=== PATIENT | female | born 2000 | race Caucasian/White ===

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

== ENCOUNTER → 2018-04-28 16:47 | Outpatient (REF) | payer MEDICAID, SELFPAY ==
[2018-05-01 20:01] LABS: Neisseria gonorrhoeae, NAA Negative (Negative)
== END ==
LOC: LAB 16:47
PROVIDERS: Visit Provider Nurse Practitioner Obstetrics & Gynecology
DX: R10.2 Pelvic and perineal pain (principal)
CPT/HCPCS: 87491; 87591

== ENCOUNTER → 2018-07-03 14:22 | Outpatient (CLI) | payer MEDICAID, SELFPAY ==
--- NOTE | 2018-07-03 14:23 | US_ITS ---
US transvaginal HISTORY: Left lower quadrant pain ITS.REASON: DUB ORDERING PHYSICIAN: KELLEY Miller PATIENT AGE: 18 years Comparison: None FINDINGS: Uterus measures 7 x 3.5 x 3.8 cm with a combined endometrial thickness 7 mm. No obvious uterine mass evident. Right ovary is 3.6 x 2.4 cm and contains a 2 cm cyst. The left ovary is 2.2 x 2 cm containing a 7 mm cyst. Bilateral ovarian blood flow is present. No cul-de-sac fluid. IMPRESSION: Small bilateral ovarian cysts otherwise negative pelvic ultrasound
== END ==
PROVIDERS: PCP Nurse Practitioner Obstetrics & Gynecology; Visit Provider Physician Assistant
DX: N93.8 Other specified abnormal uterine and vaginal bleeding (principal)
CPT/HCPCS: 76830

== ENCOUNTER → 2019-02-25 07:43 | Outpatient (CLI) | payer BC, SELFPAY ==
--- NOTE | 2019-02-25 08:30 | US_ITS ---
US abdomen limited History:Upper abdominal pain with vomiting Ordering Physician:Leander Vasquez MD Patient Age: 18 years Comparison:None Findings: Pancreas:Unremarkable. No obvious mass or abnormal fluid collection. No ductal dilatation Liver:Unremarkable. No obvious mass or abnormal fluid collection. No ductal dilatation Right Kidney:Unremarkable. Normal size and echogenicity. No hydronephrosis Gallbladder:No gallstones, gallbladder wall thickening, pericholecystic fluid, or biliary dilatation. There is some increased echogenicity along the gravity dependent portion of the gallbladder suggesting a small amount sludge Impression: 1. No stones gallbladder wall thickening pericholecystic fluid or biliary dilatation. 2. Small amount of gallbladder sludge versus concentrated bile
== END ==
PROVIDERS: PCP Family Medicine; Visit Provider Family Medicine
DX: R10.11 Right upper quadrant pain (principal)
CPT/HCPCS: 76705

== ENCOUNTER → 2019-03-05 09:50 | Outpatient (CLI) | payer BC, SELFPAY ==
--- NOTE | 2019-03-05 10:35 | NM_ITS ---
M hepatobiliary wo pharm HIST/ORY: ITS.REASON: RUQ PAIN, VOMITING ORDERING PHYSICIAN: Leander Vasquez MD PATIENT AGE: 18 years COMPARISON: None DOSE: 7.92 MCI TC Choletec 1.6 MCG CCK INJ into RT ANT FINDINGS: Homogeneous activity is present within the hepatic parenchyma. Activity is present in the gallbladder by 15 minutes. Activity is present in the small bowel by 10 minutes. The gallbladder ejection fraction is calculated to be 99% The patient did not report pain or other symptoms during CCK infusion. IMPRESSION: Unremarkable hepatobiliary scan and gallbladder ejection fraction. No evidence of common or cystic duct obstruction with normal gallbladder ejection fraction
[2019-03-05 11:00] LABS: Urine Pregnancy, HCG Qual. Negative (Negative)
== END ==
PROVIDERS: PCP Family Medicine; Visit Provider Family Medicine
DX: R10.11 Right upper quadrant pain (principal); K82.8 Other specified diseases of gallbladder; Z32.00 Encounter for pregnancy test, result unknown
CPT/HCPCS: 78226; 81025; A9537; J2805

== ENCOUNTER → 2019-08-20 08:06 | Outpatient (CLI) | payer SELFPAY ==
[2019-08-20 10:30] LABS: HCG,Quantitative 727 mIU/mL
== END ==
PROVIDERS: Visit Provider Nurse Practitioner Obstetrics & Gynecology
DX: Z34.90 Encounter for supervision of normal pregnancy, unspecified, unspecified trimester (principal)
CPT/HCPCS: 36415; 84702

== ENCOUNTER → 2019-11-15 10:27 | Outpatient (CLI) | payer BC, SELFPAY ==
--- NOTE | 2019-11-15 10:32 | US_ITS ---
PROCEDURE: US OB TRANSVAGINAL CLINICAL INDICATION: US OB Dates COMPARISON: US OB TRANSVAGINAL from 08/30/2019 FINDINGS: An intrauterine gestational sac is present with a pole with a crown-rump length of 4.49cm correlating to gestational age of 11weeks 3days. heart tones are present with an FHR of 157bpm. Yolk sac is noted. The chorion and amnion have not yet fused. No obvious adnexal mass. IMPRESSION: Live intrauterine gestation at 11 weeks 3 days. Estimated due date by Ultrasound is 06/02/2020 Dictated by: Benny Byrnes MD 11/15/2019 13:03 Electronically signed by Benny Byrnes MD in [place] 11/15/2019 13:03
== END ==
PROVIDERS: Visit Provider Nurse Practitioner Obstetrics & Gynecology
DX: O26.841 Uterine size-date discrepancy, first trimester (principal)
CPT/HCPCS: 76817

== ENCOUNTER → 2020-01-12 10:30 | Outpatient (CLI) | payer BC, SELFPAY ==
[2020-01-12 11:08] LABS: Basophils # 0.1 K/mm3 (0-0.2); Basophils % 0.4 % (0.1-2.0); Eosinophils # 0.1 K/mm3 (0.0-0.4); Eosinophils % 0.9 % (0.1-12.0); Hematocrit 33.9 % (37.0-47.0); Hemoglobin 11.7 g/dL (12.2-16.2); Lymphocytes # 2.4 K/mm3 (0.7-4.5); Lymphocytes % 18.1 % (10-50); Mean Corpuscular HGB Conc 34.5 g/dL (31.8-35.4); Mean Corpuscular Hemoglobin 28.9 pg (27.0-31.2); Mean Corpuscular Volume 83.7 fl (81-99); Mean Platelet Volume 7.1 fl (7.4-10.4); Monocytes # 0.5 K/mm3 (0.1-1.0); Monocytes % 3.7 % (1.7-9.3); Neutrophils # 10.4 K/mm3 (1.8-7.8); Neutrophils % 76.8 % (37.0-80.0); Platelet Count 264 K/mm3 (142-424); Red Blood Count 4.05 M/mm3 (4.20-5.40); Red Cell Distribution Width 13.3 % (11.5-17.5); White Blood Count 13.5 K/mm3 (4.8-10.8)
[2020-01-13 08:29] LABS: HIV Screen 4th Generation wRfx Non Reactive (Non Reactive)
[2020-01-13 12:19] LABS: Hepatitis B Surface Antigen Negative (Negative); Hepatitis C Antibody <0.1 s/co ratio (0.0-0.9); Rapid Plasma Reagin Ab Titer Non Reactive (NonRea<1:1)
[2020-01-14 10:31] LABS: Rubella Antibodies, IgG 4.01 index (Immune >0.99)
== END ==
PROVIDERS: Visit Provider Nurse Practitioner Obstetrics & Gynecology
DX: Z34.90 Encounter for supervision of normal pregnancy, unspecified, unspecified trimester (principal)
CPT/HCPCS: 36415; 85025; 86592; 86703; 86762; 86850; 87340; 87380; G0432

== ENCOUNTER → 2020-01-20 09:46 | Outpatient (CLI) | payer BC, SELFPAY ==
--- NOTE | 2020-01-20 09:47 | US_ITS ---
PROCEDURE: US OB /MATERNAL DETAIL CLINICAL INDICATION: 20 wk gestation Anatomy evaluation COMPARISON: US OB TRANSVAGINAL from 11/15/2019 FINDINGS: There is a single live fetus which is in cephalic presentation. heart and body motion is noted. Placenta is anterior. The cervix is closed and measures 4 cm transabdominal. Complete survey performed and was unremarkable on the submitted images as in PACS. No discrete anomalies identified on survey imaging by technologist. Active fetus. Three-vessel cord with satisfactory umbilical cord insertion. 4- chamber heart noted. Survey of brain & ventricles Unremarkable. Face and neck survey unremarkable. Diaphragm and chest views unremarkable. Abdomen: Both kidneys noted and unremarkable. Stomach noted and satisfactory. Spine: Survey of the spine satisfactory with no anomalies identified nor imaged. Both arms and legs noted. Amniotic Fluid: Adequate. Maternal adnexa: No significant findings. Measurements: Average ultrasound age 20weeks 5days. Gestational Age 20 weeks 6 days Estimated due date by ultrasound age 0706/03/2020. Estimated weight 374g BPD = 20weeks 6days OFD = 20 weeks 6 days HC = 20weeks 1day AC = 20weeks 6days FL = 20weeks 6days Growth Percentile= 39% Heart Rate = 140bpm Cerebellum = 20weeks 4days Humerus = 20weeks 5days HC/AC is 1.12 CI is 0.78 FL/BPD is 0.7 FL/AC is 0.22 IMPRESSION: There is a single live intrauterine in cephalic presentation with an average ultrasound age of 20 weeks 5 days. heart body motion noted. No obvious anomalies. All parameters correlate. Please see above for detail Dictated by: Benny Byrnes MD 01/20/2020 11:26 Electronically signed by Benny Byrnes MD in [place] 01/20/2020 11:26
== END ==
PROVIDERS: PCP Family Medicine; Visit Provider Nurse Practitioner Obstetrics & Gynecology
DX: Z34.90 Encounter for supervision of normal pregnancy, unspecified, unspecified trimester (principal); Z3A.20 20 weeks gestation of pregnancy
CPT/HCPCS: 76811

== ENCOUNTER → 2020-03-13 07:38 | Outpatient (CLI) | payer BC, SELFPAY ==
[2020-03-13 08:18] LABS: Glucose,Fasting 85 mg/dl (74-100)
[2020-03-13 09:29] LABS: Glucose 1 Hour 128 mg/dL (74-100)
== END ==
PROVIDERS: Visit Provider Nurse Practitioner Obstetrics & Gynecology
DX: Z34.90 Encounter for supervision of normal pregnancy, unspecified, unspecified trimester (principal)
CPT/HCPCS: 36415; 82951

== ENCOUNTER → 2020-04-17 10:13 | Outpatient (CLI) | payer BC, SELFPAY ==
--- NOTE | 2020-04-17 10:13 | US_ITS ---
PROCEDURE: US OB /MATERNAL DETAIL CLINICAL INDICATION: decreased movement Follow-up Ob, bradycardia COMPARISON: US OB /MATERNAL DETAIL from 01/20/2020 FINDINGS: There is a single live fetus which is in cephalic presentation. The cervix is closed measuring 3 cm transabdominal. The placenta is anterior. Amniotic fluid index is normal at 13 cm Measurements: Average ultrasound age 33weeks 4days. Gestational Age 33 weeks 3 days Estimated due date by ultrasound age 0706/01/2020. Estimated weight 2,222g BPD = 33weeks OFD = 34 weeks 0 days HC = 33weeks 1day AC = 33weeks 2days FL = 34weeks 4days Growth Percentile= 46% Heart Rate = 128bpm Cerebellum = Humerus = HC/AC is 1.02 CI is 0.77 FL/BPD is 0.82 FL/AC is 0.23 Biophysical profile is 8 of 8 IMPRESSION: Live IUP at 33 weeks 4 days. Biophysical profile 8 of 8. TATA normal at 13 cm Dictated by: Benny Byrnes MD 04/17/2020 19:07 Electronically signed by Benny Byrnes MD in [place] 04/17/2020 19:07
== END ==
PROVIDERS: PCP Family Medicine; Visit Provider Nurse Practitioner Obstetrics & Gynecology
DX: O36.8190 Decreased fetal movements, unspecified trimester, not applicable or unspecified (principal)
CPT/HCPCS: 76811; 76819

== ENCOUNTER → 2020-05-03 16:58 | Outpatient (CLI) | payer BC, SELFPAY | PROVIDERS: Visit Provider Nurse Practitioner Obstetrics & Gynecology | DX: Z34.90 Encounter for supervision of normal pregnancy, unspecified, unspecified trimester (principal); Z3A.35 35 weeks gestation of pregnancy | CPT/HCPCS: 86403 ==

== ENCOUNTER → 2020-05-04 12:38 | Outpatient (CLI) | payer BC, SELFPAY ==
--- NOTE | 2020-05-04 12:39 | US_ITS ---
PROCEDURE: US OB /MATERNAL DETAIL CLINICAL INDICATION: decreased movement COMPARISON: US OB /MATERNAL DETAIL from 04/17/2020 FINDINGS: The fetus is in a cephalic presentation. High anterior placental implantation is noted. Cervix and the amniotic fluid is normal. movement and breathing was demonstrated. Measurements: Average ultrasound age 35weeks 5days. Gestational Age 35weeks 5days Estimated due date by ultrasound age 0706/03/2020. Estimated weight 2,766g BPD = 35weeks 5days OFD = !Error HC = 35weeks 1day AC = 36weeks FL = 35weeks 6days Growth Percentile= 37Percent% Heart Rate = 134bpm HC/AC is 0.98 CI is 0.8 FL/BPD is 0.79 FL/AC is 0.22 IMPRESSION: As above. Dictated by: Maninder Mcknight 05/04/2020 15:48 Electronically signed by Maninder Mcknight in [place] 05/04/2020 15:48
== END ==
PROVIDERS: PCP Family Medicine; Visit Provider Nurse Practitioner Obstetrics & Gynecology
DX: O36.8190 Decreased fetal movements, unspecified trimester, not applicable or unspecified (principal)
CPT/HCPCS: 76811; 76819

== ENCOUNTER → 2020-05-11 10:37 | Outpatient (CLI) | payer BC, SELFPAY | PROVIDERS: Visit Provider Nurse Practitioner Obstetrics & Gynecology | DX: Z34.90 Encounter for supervision of normal pregnancy, unspecified, unspecified trimester (principal) | CPT/HCPCS: 36415; J2790 ==

== ENCOUNTER 2020-05-12 10:30 | Outpatient (CLI) | payer BC, SELFPAY ==
[2020-05-12 10:48] VITALS: BP 136/73; PULSE 97; RESP 18; O2SAT 98
== END 2020-05-12 10:48 | disposition home or self-care (01) ==
LOC: INF 10:48
PROVIDERS: PCP Family Medicine; Visit Provider Nurse Practitioner Obstetrics & Gynecology
DX: Z34.90 Encounter for supervision of normal pregnancy, unspecified, unspecified trimester (principal)
CPT/HCPCS: 96372; J2790

== ENCOUNTER 2020-05-24 20:27 | Outpatient (CLI) | payer BC, SELFPAY ==
[2020-05-24 21:00] VITALS: BMI 30.4
[2020-05-24 21:15] VITALS: BP 117/82; PULSE 106; RESP 20; TEMP 36.8; O2SAT 97; BMI 30.4
== END 2020-05-24 22:38 | disposition home or self-care (01) ==
LOC: OBOUT 20:30 → OB 20:31
PROVIDERS: PCP Nurse Practitioner Obstetrics & Gynecology; Visit Provider Nurse Practitioner Obstetrics & Gynecology
DX: O36.8130 Decreased fetal movements, third trimester, not applicable or unspecified (principal); Z3A.38 38 weeks gestation of pregnancy
CPT/HCPCS: 59025; 96365; G0463

== ENCOUNTER → 2020-05-25 09:39 | Outpatient (CLI) | payer BC, SELFPAY ==
--- NOTE | 2020-05-25 09:43 | US_ITS ---
PROCEDURE: US OB BPP W/FET-MAT S/D CLINICAL INDICATION: Seen in OB Triage, Decreased Movement COMPARISON: US OB /MATERNAL DETAIL from 05/04/2020 FINDINGS: There is a single live fetus which is in cephalic presentation. heart and body motion noted. Biophysical profile is 8 of 8. Amniotic fluid index is 9 cm. The placenta is anterior and grade 1. Measurements: Average ultrasound age 37weeks 3days. Gestational Age 38 weeks 6 days Estimated due date by ultrasound age 806/12/2020. Estimated weight 3,494g. This is percentile BPD = 37weeks OFD = 34 weeks 4 days HC = 35weeks 2days AC = 40weeks 1day FL = 37weeks 1day Growth Percentile= 58% Heart Rate = 124bpm Cerebellum = Humerus = HC/AC is 0.87 CI is 0.84 FL/BPD is 0.8 FL/AC is 0.2 IMPRESSION: There is a live IUP at 37 weeks 3 days average ultrasound age in breech presentation as described above with biophysical profile 8 of 8. TATA is lower normal at 9 cm. Please see above for detail Dictated by: Benny Byrnes MD 05/25/2020 14:57 Electronically signed by Benny Byrnes MD in [place] 05/25/2020 14:57
== END ==
PROVIDERS: PCP Family Medicine; Visit Provider Nurse Practitioner Obstetrics & Gynecology
DX: O36.8190 Decreased fetal movements, unspecified trimester, not applicable or unspecified (principal)
CPT/HCPCS: 76811; 76819; 76820

== ENCOUNTER 2020-05-29 04:58 | Inpatient (IN) | payer BC, SELFPAY ==
[2020-05-29] VITALS (8 sets, daily range): BP systolic 109–134; BP diastolic 57–81; PULSE 68–95; RESP 12–18; TEMP 36.2–37; O2SAT 98–100; BMI 30.5; BMI 30.8
[2020-05-29 05:33] LABS: Basophils # 0.1 K/mm3 (0-0.2); Basophils % 0.8 % (0.1-2.0); Eosinophils # 0.3 K/mm3 (0.0-0.4); Eosinophils % 1.9 % (0.1-12.0); Hematocrit 39.7 % (37.0-47.0); Hemoglobin 13.7 g/dL (12.2-16.2); Lymphocytes # 2.9 K/mm3 (0.7-4.5); Lymphocytes % 21.3 % (10-50); Mean Corpuscular HGB Conc 34.5 g/dL (31.8-35.4); Mean Corpuscular Hemoglobin 29.2 pg (27.0-31.2); Mean Corpuscular Volume 84.6 fl (81-99); Mean Platelet Volume 7.4 fl (7.4-10.4); Monocytes # 0.6 K/mm3 (0.1-1.0); Monocytes % 4.2 % (1.7-9.3); Neutrophils # 9.7 K/mm3 (1.8-7.8); Neutrophils % 71.8 % (37.0-80.0); Platelet Count 276 K/mm3 (142-424); Red Cell Distribution Width 13.7 % (11.5-17.5); White Blood Count 13.5 K/mm3 (4.8-10.8)
[2020-05-29 05:35] LABS: Microscopic, Urine URINE MICROSCOPIC (MICROSCOPIC)
[2020-05-29 05:38] LABS: Appearance,Urine SL CLOUDY (Clear); Bilirubin,Urine Negative (Negative); Blood, Urine Negative (Negative); Color,Urine YELLOW (Yellow); Glucose,Urine (UA) Negative (Negative); Ketones,Urine Negative (Negative); Leukocyte Esterase,Urine 2+ (Negative); Nitrate,Urine Negative (Negative); Protein,Urine Negative (Negative); Specific Gravity, Urine 1.025 (1.005-1.030); Urobilinogen,Urine 0.2 EU/dl (0.2)
[2020-05-29 05:40] LABS: Squamous Epithelial Cell,Urine 20-50 #/hpf (0-5); WBC,Urine 20-50 #/hpf (0-3)
[2020-05-29 05:48] LABS: Barbiturates Screen,Urine Negative ng/ml (<200); Benzodiazepines Screen,Urine Negative ng/ml (<200)
[2020-05-29 05:49] LABS: Amphetamine/Metha Screen,Urine Negative ng/ml (<1000)
[2020-05-29 05:50] LABS: Cannabinoid Screen,Urine Negative ng/ml (<50); Methadone Screen,Urine Negative ng/ml (<300)
[2020-05-29 05:51] LABS: Cocaine Screen,Urine Negative ng/ml (<300); Opiate Screen,Urine Negative ng/ml (<300)
[2020-05-29 05:52] LABS: Phencyclidine Screen,Urine Negative ng/ml (<25)
[2020-05-29 06:11] LABS: Coronavirus 19 IgG Antibody Negative (Negative); Coronavirus 19 IgM Antibody Negative (Negative)
--- NOTE | 2020-05-29 07:25 | HMH.LABNOT ---
Labor Note - Subjective: Date: 05/29/20 Time: 07:25 regular contraction - Objective: NST:: Reactive Contractions:: every 2-3 minutes Cervical Dilation:: 4 Effacement:: 75% Station: -2 Membranes: artificially ruptured - Fetus: Monitoring?: Yes monitoring type:: Internal and External Comment:: iupc inserted - Assessment: Patient Problems: All Active Problems Viral syndrome (Acute) (Acute) - Plan: Anesthesia for epidural?: No Continue to labor down?: Yes Plan for ?: No Continue to monitor?: Yes Start pushing?: No
--- NOTE | 2020-05-29 07:32 | HMH.PHAINT ---
MEDICATION RECONCILIATION COMPLETED ON PATIENT USING EXTERNAL FILL HISTORY FROM PHARMACY. -LUCIE COLÓN, [place]
--- NOTE | 2020-05-29 09:23 | P.PN_ITS ---
[facility] Anesthesia Checklist - Patient Identification Patient Identification: Arm Band - Structural Data Admitted From: Inpatient Planned Operative Procedure/s: labor epidural Consent for Planned Operative Procedure(s) Verified: Yes Verified Documents: Surgical Consent, History and Physical - NPO Status Verified Time NPO: 00:00 - Additional verifications Anesthesia Reactions: No - Airway Assessment C-Spine Mobility Assessed: Yes TMJ Mobility Assessed: Yes Dentition: Good Dentition - Neurological Assessment Level of Consciousness: Awake, Alert - Anesthesia Plan Anesthesia Risk discussed: Yes Anesthesia Plan: Verified ASA Class: II Anesthesia Type: Epidural [facility] History I have reviewed the patient's past medical history: Yes 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: Denies:: Cancer, Diabetes Mellitus Type 1, Diabetes Mellitus Type 2, MRSA *Have you ever received a pneumonia vaccine?: No *Have you received a flu vaccine this season?: No Other 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: Reports: Other Anesthesia experience/problems:: nac Laterality Cases: Bilateral: Tonsillectomy, Other Other Surgeries: Yes: No Previous Surgery. No: Amputation: No Fractures: No - *Social History Smoking Status: Never smoker Alcohol Intake: never Substance Use Type: denies use *Occupational Status:: unemployed Housing: apartment Household Members: spouse *Travel in the last 8 weeks: None Family Hx:: Hypertension, Cancer, Stroke Para: 0
--- NOTE | 2020-05-29 09:54 | HMH.LABNOT ---
Labor Note - Subjective: Date: 05/29/20 Time: 09:54 regular contraction Comment:: She received her epidural and shortly thereafter had some low baseline into the 80s and 90s with the baby's heart rate. She received 1 dose of ephedra and this seemed to increase the baby's heart rate. She also had a bolus of IV fluids. She had an IUPC in and we have given her an amnioinfusion as well. Heart rate seems to have improved and she is doing well. She is 6 to 7 cm. - Objective: NST:: Reactive Contractions:: every 2-3 minutes Cervical Dilation:: 6-7 Effacement:: 100% Station: 0 Membranes: artificially ruptured - Fetus: Monitoring?: Yes monitoring type:: Internal - Assessment: Labor progressing?: Yes Cephalopelvic disproportion?: No Patient Problems: All Active Problems Viral syndrome (Acute) (Acute) - Plan: Anesthesia for epidural?: Yes Continue to labor down?: Yes Plan for ?: No Continue to monitor?: Yes Start pushing?: No
--- NOTE | 2020-05-29 12:13 | HMH.LABNOT ---
Labor Note - Subjective: Date: 05/29/20 Time: 12:13 regular contraction - Objective: NST:: Reactive Contractions:: every 2-3 minutes Cervical Dilation:: 6-7 Effacement:: 100% Station: 0 Membranes: artificially ruptured - Fetus: Monitoring?: Yes monitoring type:: Internal - Assessment: Labor progressing?: No Cephalopelvic disproportion?: No Patient Problems: All Active Problems Viral syndrome (Acute) (Acute) - Plan: Anesthesia for epidural?: Yes Continue to labor down?: Yes Plan for ?: No Continue to monitor?: Yes Start pushing?: No Comment:: She really has not changed her cervix much over the last couple of hours. We will see how she does. Nonstress test is reactive. She is having regular contractions.
[2020-05-29 13:19] LABS: Cord Blood PH 7.25 (7.35-7.45)
--- NOTE | 2020-05-29 13:33 | HMH.OPNOTE ---
Date of procedure: 05/29/20 Pre-op Diagnosis:: Term , nonreassuring heart rate tracing Post-op Diagnosis:: Term , nonreassuring heart rate tracing, uterine atony Procedure performed:: Primary lower segment transverse section, B. Sparks suture Surgeon:: Jeanmarie Panda MD Retail Sales Lead(s):: Dr. Edwards BATTING MACHINE OPERATOR INSULATION:: Fredrick Willis Anesthesia: epidural Estimated blood loss (mL): 800 Clinical Note:: She is a 19-year-old 2 para 0 aborta 1 who was 39+ weeks gestational age. She was seen in my office last week and had some decreased movement. Ultrasound was normal. Since she was now 39 weeks we elected to induce her labor at term. She was started on IV oxytocin had her membranes ruptured. She progressed to 6 to 7 cm dilated and throughout the whole morning she was having episodes of decelerations. After her epidural she had a prolonged deceleration that lasted about 10 minutes. It seemed that every time we examined her she would have another prolonged deceleration. We felt that it may have had a nuchal cord and as result of that we had inserted an IUPC with amnioinfusion. This did not help. After having discussed the risks and benefits were elected to go ahead with a primary lower segment transverse section. We discussed the risks of bleeding, infection, injuries to the bowel and bladder. We discussed the rare risk of DVT. All questions were answered and consents were signed. Operative findings:: She delivered a liveborn female child at 12:57 PM in the afternoon of May 29, 2020. The baby had Apgars of 8 at 1 minute and 9 at 5 minutes. pH was 7.24. Ovaries and tubes appeared normal. The uterus was somewhat boggy postdelivery and we elected to place a B. Sparks suture as result of this. Operative note:: She was taken to the operating room where spinal anesthesia was found be adequate. She was prepped and draped in normal sterile fashion in the supine position with a leftward tilt. A Gonzalez catheter was in the bladder. A Pfannenstiel skin incision was made with knife then carried through to the underlying layer of fascia with cautery. The fascia was opened in the midline with cautery and extended laterally using Mcnulty scissors. Gepp clamps were applied to the superior aspect of the fascial incision which was tented up and the underlying rectus muscles dissected off using cautery. The Chris clamps were then applied to the inferior aspect of the fascial incision which in a similar fashion was tented up and the underlying rectus muscles dissected off using cautery. The rectus muscles were then in the midline, the peritoneum identified, and entered sharply with Metzenbaum scissors. This incision was then extended superiorly and inferiorly with cautery. We had good visualization of the bladder inferiorly. The bladder peritoneum was then opened in the midline and extended laterally using Metzenbaum scissors. A bladder flap was created digitally. Transverse incision was made through the uterine muscle to the amnion. This incision was then extended laterally using fingers traction. The amnion was entered sharply with knife. There was clear amniotic fluid. The 's head was then delivered atraumatically. A loose nuchal cord was then reduced. This was followed by the anterior shoulder and the rest of the 's body atraumatically. The oropharynx and nasopharynx were bulb suctioned. The infant was then handed off to Dr. Vasquez who assigned Apgars of 8 at 1 minute and 9 at 5 minutes. We then obtained cord blood as well as cord pH. The pH was 7.24.. Using gentle traction on the cord and countertraction on the fundus I was able to easily deliver the placenta intact. It had a normal three-vessel cord. The uterus was then cleared of clots and debris . The uterine incision was then closed using running 0 Vicryl suture in a locked fashion. A second layer of the same suture was used to imbricate
--- NOTE | 2020-05-29 13:38 | HMH.LABNOT ---
Labor Note - Subjective: Date: 05/29/20 Time: 12:10 regular contraction - Objective: NST:: Reactive Contractions:: every 2-3 minutes Cervical Dilation:: 6-7 Effacement:: 100% Station: 0 Membranes: artificially ruptured - Fetus: Monitoring?: Yes monitoring type:: Internal - Assessment: Labor progressing?: No Patient Problems: All Active Problems Viral syndrome (Acute) (Acute) - Plan: Anesthesia for epidural?: Yes Continue to labor down?: No Plan for ?: Yes Continue to monitor?: Yes Start pushing?: No Comment:: Each time we have examined her she has had some prolonged decelerations. As result of that we have elected to perform a primary lower segment transverse section. She also has not really progressed over the last 3 hours. We discussed the risks of surgery that includes bleeding, infection, injuries to the bowel and bladder. We discussed the rare risk of DVT. All questions were answered and consents were signed.
--- NOTE | 2020-05-29 13:40 | P.PN_ITS ---
[facility] Anesthesia Record Part I Intake, IV Amount: 1,500 Estimated blood loss (mL): 600 Urine output (mL): 400 Blood Pressure: 134/78 SaO2: 98 Pulse Rate: 72 Respiratory Rate: 12 Temperature: 97.1 F Patient is:: Awake, Stable Stable to PACU at:: 13:35
--- NOTE | 2020-05-29 13:55 | PC.NURSE ---
1348-pt drinking gatorade w/out difficulty at this time
--- NOTE | 2020-05-29 14:03 | PC.NURSE ---
1401-detailed report called to ADALI Crouch 1405-pt transported to OB room 278 via hospital bed per ADALI Duarte and JefferyRN with tom rails up and left in care of ADALI Crouch with bed locked in lowest position, vss, pt stable
--- NOTE | 2020-05-29 15:57 | HMH.ANESII ---
[facility] Anesthesia Record Part II Discharge Time: 14:05 Destination: Obstetric PACU nurse assessment reviewed?: Yes Patient Condition:: Good Anesthesia Complications:: None Swallowing reflex intact?: Yes Cyanosis?: No Blood Pressure: 121/75 Pulse Rate: 69 Temperature: 97.7 F Mental Status: Alert & Oriented Pain level:: 1 Nausea and/or vomitting:: None Intake, IV Amount: 0
[2020-05-30 06:45] LABS: Hematocrit 33.9 % (37.0-47.0); Hemoglobin 11.4 g/dL (12.2-16.2)
[2020-05-30 08:00] VITALS: BP 120/72; PULSE 92; RESP 18; TEMP 36.7
--- NOTE | 2020-05-30 08:30 | HMH.ACPN2 ---
Internal Medicine - PN: Subj *Date: 05/30/20 *Time: 08:30 Interval history: She is doing well. She is eating and drinking and ambulating. Her pain is well controlled. She is bottlefeeding. Her hemoglobin is normal. Exam Vital signs and Labs for Last 24 Hours: Temp Pulse Resp BP Pulse Ox 98.3 F 68 17 111/65 99 05/29/20 20:17 05/29/20 20:17 05/29/20 20:17 05/29/20 20:17 05/29/20 20:17 Laboratory Results - last 24 hr 05/29/20 05:25: Antibody Identification Anti-D 05/29/20 13:05: Cord ABG pH 7.25 L 05/30/20 06:30: Hgb 11.4 L, Hct 33.9 L I & O for Last 24 hours: Intake & Output 05/27/20 05/28/20 05/29/20 05/30/20 11:59 11:59 11:59 11:59 Intake Total 1650 / 1650 Output Total 200 / 200 Balance 1450 / 1450 Weight 209 lb Microbiology Reports for the Last 24 Hours: Microbiology 05/29/20 05:15 Urine,Clean Catch Urine Culture - Preliminary NO GROWTH AFTER 24 HOURS - Constitutional no acute distress - *Routine HEENT Exam Head: Present: normocephalic Eye: Present: EOMI, PERRL ENT: Present: mucous membranes moist Assessment and Plan (1) Non-reassuring heart rate or rhythm affecting management of fetus Current visit: Yes Status: Acute Category: Medical (2) Delivery by section of full-term Current visit: Yes Status: Acute Category: Medical Code(s): O82 - Encounter for delivery without indication - Assessment and plan all Dx Assessment and Plan for all problems:: She continues to do well. We will plan to send her home in 48 hours.
--- NOTE | 2020-05-30 08:45 | P.CONPHA_ITS ---
[facility] Pharmacy VTE Monitoring - Patient Demographics Admission date: 05/29/20 Report Date: 05/30/20 Time: 08:45 Allergies/Adverse Reactions: Patient Allergies No Known Allergies Allergy (Verified 05/22/20 10:20) Height: 1.75 m Weight: 94.801 kg Patient Problems: Current Active Problems Non-reassuring heart rate or rhythm affecting management of fetus (Acute) Delivery by section of full-term (Acute) - VTE Risk Labs: VTE Related Lab Results Hgb 11.4 g/dL (12.2-16.2) L 05/30/20 06:30 Hct 33.9 % (37.0-47.0) L 05/30/20 06:30 Plt Count 276 K/mm3 (142-424) 05/29/20 05:25 - Prophylaxis VTE Prophylaxis Ordered?: Yes Types of VTE Prophylaxis: IPCS Thigh High Location of Applied Device: Bilateral Lower Extremeties
[2020-05-30 12:06] VITALS: BP 115/60; PULSE 70; RESP 18; TEMP 36.8; O2SAT 97
[2020-05-30 16:30] VITALS: BP 118/72; PULSE 71; RESP 18; TEMP 36.5
[2020-05-31 08:27] VITALS: BP 118/77; PULSE 84; RESP 18; TEMP 36.7; O2SAT 98
--- NOTE | 2020-05-31 09:27 | HMH.ACPN2 ---
Internal Medicine - PN: Subj *Date: 05/31/20 *Time: 09:27 Interval history: She is doing well today. She is eating and drinking and ambulating. She is bottlefeeding. Her lochia is normal. Exam Vital signs and Labs for Last 24 Hours: Temp Pulse Resp BP Pulse Ox 98.1 F 84 18 118/77 98 05/31/20 08:27 05/31/20 08:27 05/31/20 08:27 05/31/20 08:27 05/31/20 08:27 I & O for Last 24 hours: Intake & Output 05/28/20 05/29/20 05/30/20 05/31/20 11:59 11:59 11:59 11:59 Intake Total 1650 / 1650 Output Total 200 / 200 Balance 1450 / 1450 Weight 209 lb Microbiology Reports for the Last 24 Hours: Microbiology 05/29/20 05:15 Urine,Clean Catch Urine Culture - Final NO GROWTH AFTER 48 HOURS - Constitutional no acute distress - *Routine HEENT Exam Head: Present: normocephalic Eye: Present: EOMI, PERRL ENT: Present: mucous membranes moist Assessment and Plan (1) Non-reassuring heart rate or rhythm affecting management of fetus Current visit: Yes Status: Acute Category: Medical (2) Delivery by section of full-term Current visit: Yes Status: Acute Category: Medical Code(s): O82 - Encounter for delivery without indication - Assessment and plan all Dx Assessment and Plan for all problems:: She is doing well. We will plan to send her home tomorrow.
[2020-05-31 12:00] VITALS: BP 125/77; PULSE 66; RESP 16; TEMP 36.6; O2SAT 99
[2020-05-31 13:42] LABS: POC Glucose,Bedside 109 (70-110)
[2020-05-31 16:20] VITALS: BP 111/73; PULSE 70; RESP 16; TEMP 36.6; O2SAT 98
--- NOTE | 2020-06-01 08:40 | HMH.DCSUM ---
General - General Admission date:: 05/29/20 Discharge date: 06/01/20 HPI HPI: She is a 19-year-old 2 now para 1 aborta 1 who was 39 weeks gestational age. She had some decreased movement prior to admission and as result of that we elected to induce her labor at term. Hospital Course Hospital Course: She was started on IV oxytocin had her membranes ruptured. She really failed to progress beyond 6 to 7 cm. She remained at 6-7 cm for a few hours. She was having prolonged decelerations and these happened on multiple occasions. As result of that we elected to perform a primary lower segment transverse section for nonreassuring heart rate tracing as well as failure to progress. She underwent a section and delivered a liveborn female child at 12:57 PM in the afternoon of May 29, 2020. The baby weighed 8 pounds 11 ounces and was 20 inches long. She had Apgars of 8 at 1 minute and 9 at 5 minutes. She has done well and has remained afebrile with her hospitalization. She is eating and drinking and ambulating. She is bottlefeeding. She has a Rh- blood and will receive RhoGam if necessary. She is rubella immune and was group B streptococcus negative. She was given the usual instructions with respect to limiting her activity, driving and sexual activity. Her alex have been removed and Steri-Strips applied. Her ramp attendant is Dr. Vasquez. She is discharged home to follow-up with me in approximately 2 weeks time. Her condition on discharge is stable and improved. Rhogam Administration: Not Indicated Objective Vital signs: Temp Pulse Resp BP Pulse Ox 97.9 F 70 16 111/73 98 05/31/20 16:20 05/31/20 16:20 05/31/20 16:20 05/31/20 16:20 05/31/20 16:20 no acute distress - *Routine HEENT Exam Head: Present: normocephalic Eye: Present: EOMI, PERRL ENT: Present: mucous membranes moist - *Routine Abdominal Exam Present: soft, normoactive bowel sounds, surgical scars Comments: Her incision is clean and dry. Results Labs on day of discharge: Labs from last 24 hours 05/31/20 13:22 POC Glucose 109 DS: Diagnosis - Discharge Diagnosis (1) Non-reassuring heart rate or rhythm affecting management of fetus Status: Acute (2) Delivery by section of full-term Status: Acute Discharge Plan - Patient Discharge Instructions ACTIVITY: No heavy lifting DIET: continue same diet Additional Instructions: No heavy lifting, no driving for 2 weeks or while taking prescription narcotics, nothing in the vagina for 6 weeks. Patient Instructions: Depression, Hemorrhage, DI for , DI for Pre-eclampsia, DI for Surgical Site Infection, DI for Postoperative Pain, Preventing the Spread of Coronavirus Discharge Instructions, Post Discharge Instructions - Follow up Plan Follow up with: Jeanmarie Panda MD [Staff Physician] - Disposition: Home, Self-Custodial Medications: Home Medications Medication Instructions Recorded Confirmed Type Pnv No.95/Ferrous Fum/Folic AC 1 each PO DAILY 11/28/19 05/29/20 History [ Vitamin Tablet] Famotidine [Acid Associate Faculty] 20 mg PO DAILY 05/29/20 05/29/20 History Ferrous Sulfate 325 mg PO DAILY 05/29/20 05/29/20 History Oxycodone HCl/Acetaminophen 1 tab PO Q6 PRN #20 tablet 06/01/20 Rx [Percocet 5/325mg tablet] Prescriptions/Medication Reconciliation: New Oxycodone HCl/Acetaminophen [Percocet 5/325mg tablet] 1 tab PO Q6 PRN #20 tablet PRN Reason: Severe Pain Continued Pnv No.95/Ferrous Fum/Folic AC [ Vitamin Tablet] 1 each PO DAILY Ferrous Sulfate 325 mg PO DAILY Famotidine [Acid Associate Faculty] 20 mg PO DAILY - Problem Reconciliation Problems Reviewed?: Yes
== END 2020-06-01 10:30 | disposition home or self-care (01) | DRG 788 ==
PROVIDERS: Admitting Provider Nurse Practitioner Obstetrics & Gynecology; PCP Family Medicine; Visit Provider Nurse Practitioner Obstetrics & Gynecology
PROC: (CPT 59514; principal; 2020-05-29 12:45)
DX: O36.8330 Maternal care for abnormalities of the fetal heart rate or rhythm, third trimester, not applicable or unspecified (principal); O77.9 Labor and delivery complicated by fetal stress, unspecified; Z3A.39 39 weeks gestation of pregnancy; Z37.0 Single live birth; O75.89 Other specified complications of labor and delivery; O69.81X0 Labor and delivery complicated by cord around neck, without compression, not applicable or unspecified
CPT/HCPCS: 59514; 36415; 59025; 80305; 81001; 82800; 82962; 85014; 85018; 85025; 86328; 86850; 86870; 87086; 94761; C1758

== ENCOUNTER 2020-06-27 13:44 | Emergency (ER) | payer BC, SELFPAY ==
[2020-06-27 13:52] VITALS: BP 117/72; PULSE 67; RESP 17; TEMP 36.7; O2SAT 99; BMI 27.3
--- NOTE | 2020-06-27 13:56 | HMH.EDABDPAI ---
ED Disposition Clinical Impression: Abdominal pain Qualifiers: Abdominal location: generalized Qualified Code(s): R10.84 - Generalized abdominal pain Disposition: Home, Self-Care Condition on Discharge: Good Instructions: DI for Abdominal Pain-Adult, DI for Abdominal Muscle Strain Referrals: Leander Vasquez MD [Primary Care Provider] - 3 days - Critical Care Critical Care Time: No Attestation: On 06/27/20, the high probability of a clinically significant, sudden or life threatening deterioration of the following system(s) required my full and direct attention, intervention and personal management. The time I documented below is in addition to time spent performing reported procedures but includes the following listed in this critical care notation. Medical Decision Making - Medical Records Medical records reviewed: Yes: I reviewed the patient's medical records. - Julio Inquiry Pt receiving controlled substance: No Vital Signs: 06/27/20 13:52 Temperature 98.1 F Temperature Source Oral Pulse Rate [Radial] 67 Respiratory Rate 17 Blood Pressure [Right Arm] 117/72 Blood Pressure Mean [Right Arm] 87 Blood Pressure Source [Right Arm] Automatic Cuff Blood Pressure Position [Right Arm] Sitting 02 Sat by Pulse Oximetry 99 Oxygen Delivery Method Room Air Medical Decision Narrative: Patient pain is completely resolved. Likely pain related to adhesional pain or scar tissue pain stated with twisting motion. Possible muscle strain. There are no masses or tenderness to suggest acute muscular rupture, incarcerated or strangulated hernia. Discharged home with advised to follow-up with ACCOUNTING RECRUITER at the end of the month as planned and return to the emergency department for any acute recurrence of symptoms or other acute new concerns. Abdominal Pain HPI - General Stated Complaint: abd pain Time Seen by Provider: 06/27/20 14:00 Mode of Arrival: Ambulatory Limitations: No Limitations Description of Symptoms (Recalled from ER Triage Doc. by RN): abdomen pain. Csection 4 weeks ago. states she is just afraid she pulled something out. - History of Present Illness HPI narrative: This is a 20-year-old female with no significant past medical history who presents to the emergency department for sharp abdominal pain radiating from her scar after rotating picking up her daughter about an hour ago. She had a 4 weeks ago and is worried she might have pulled something . She states the pain is improved and she no longer hurts. She has not had any urinary symptoms. She has had normal bowel habits. No recent fevers or vomiting. Pain initially was 10/10 when she twisted, but now is completely resolved. - Related Data Home Medications Medication Instructions Recorded Confirmed Pnv No.95/Ferrous Fum/Folic AC 1 each PO DAILY 11/28/19 06/12/20 [ Vitamin Tablet] Famotidine [Acid Long Term Care Pharmacist] 20 mg PO DAILY 05/29/20 06/12/20 Ferrous Sulfate 325 mg PO DAILY 05/29/20 06/12/20 Previous Rx's Medication Instructions Recorded Oxycodone HCl/Acetaminophen 1 tab PO Q6 PRN #20 tab 06/01/20 [Percocet 5/325mg tablet] Allergies Allergy/AdvReac Type Severity Reaction Status Date / Time No Known Allergies Allergy Verified 06/12/20 15:30 [facility] History - Hepatitis A Screen Drug use history?: No High risk sexual behaviors?: No History of sexually transmitted infection?: No Currently employed?: No Childcare worker?: No Do you have indoor plumbing?: Yes Do you have electricity?: Yes Attestation statement:: This patient has been screened for Hepatitis A risk factors. I have reviewed the patient's past medical history: Yes 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: Denies:: Cancer, Diabetes Mellitus Type 1, Diabetes Mellitus Type 2, MRSA Other 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: Reports: Other Laterality Cases: Bilateral: Tonsillectomy, Other Other Surgeries: Yes: No Previous Surgery. No: Amputation: No Fract
[2020-06-27 14:10] VITALS: BP 100/58; PULSE 65; RESP 18; TEMP 36.7; O2SAT 98
== END 2020-06-27 14:10 | disposition home or self-care (01) ==
PROVIDERS: Emergency Provider Emergency Medicine; PCP Family Medicine
DX: O90.89 Other complications of the puerperium, not elsewhere classified (principal); R10.84 Generalized abdominal pain; Z90.09 Acquired absence of other part of head and neck
CPT/HCPCS: 99281

== ENCOUNTER → 2020-10-25 11:42 | Outpatient (CLI) | payer BC, SELFPAY ==
[2020-10-25 12:22] LABS: Basophils # 0.1 K/mm3 (0-0.2); Basophils % 0.7 % (0.1-2.0); Eosinophils # 0.1 K/mm3 (0.0-0.4); Eosinophils % 1.1 % (0.1-12.0); Hematocrit 43.5 % (37.0-47.0); Hemoglobin 14.2 g/dL (12.2-16.2); Lymphocytes # 2.5 K/mm3 (0.7-4.5); Lymphocytes % 33.5 % (10-50); Mean Corpuscular HGB Conc 32.6 g/dL (31.8-35.4); Mean Corpuscular Hemoglobin 26.6 pg (27.0-31.2); Mean Corpuscular Volume 81.6 fl (81-99); Mean Platelet Volume 7.5 fl (7.4-10.4); Monocytes # 0.4 K/mm3 (0.1-1.0); Monocytes % 5.2 % (1.7-9.3); Neutrophils # 4.5 K/mm3 (1.8-7.8); Neutrophils % 59.5 % (37.0-80.0); Platelet Count 291 K/mm3 (142-424); Red Blood Count 5.33 M/mm3 (4.20-5.40); Red Cell Distribution Width 13.2 % (11.5-17.5); White Blood Count 7.5 K/mm3 (4.8-10.8)
== END ==
PROVIDERS: PCP Family Medicine; Visit Provider Physician Assistant
DX: Z03.818 Encounter for observation for suspected exposure to other biological agents ruled out (principal)
CPT/HCPCS: 36415; 85025; U0003

== ENCOUNTER → 2020-11-06 12:26 | Outpatient (CLI) | payer BC, SELFPAY ==
[2020-11-06 14:56] LABS: HCG,Quantitative 14650 mIU/ml (0-5.42)
== END ==
PROVIDERS: Visit Provider Nurse Practitioner Obstetrics & Gynecology
DX: Z34.90 Encounter for supervision of normal pregnancy, unspecified, unspecified trimester (principal)
CPT/HCPCS: 36415; 84702

== ENCOUNTER 2020-12-03 15:26 | Emergency (ER) | payer BC, SELFPAY ==
[2020-12-03 15:33] VITALS: BP 116/76; PULSE 71; RESP 18; TEMP 36.4; O2SAT 99; BMI 26.9
[2020-12-03 15:54] LABS: Appearance,Urine CLEAR (Clear); Bilirubin,Urine Negative (Negative); Blood, Urine Negative (Negative); Color,Urine YELLOW (Yellow); Glucose,Urine (UA) Negative (Negative); Ketones,Urine Negative (Negative); Leukocyte Esterase,Urine 1+ (Negative); Microscopic, Urine URINE MICROSCOPIC (MICROSCOPIC); Nitrate,Urine Negative (Negative); Protein,Urine Negative (Negative); Urobilinogen,Urine 0.2 EU/dl (0.2)
[2020-12-03 15:57] VITALS: BP 110/63; PULSE 80; O2SAT 98
[2020-12-03 15:58] LABS: Urine Pregnancy, HCG Qual. Positive (Negative)
[2020-12-03 16:00] LABS: Bacteria,Urine Trace /lpf
--- NOTE | 2020-12-03 16:00 | HMH.EDPREG ---
ED Disposition Clinical Impression: UTI (urinary tract infection) Qualifiers: Urinary tract infection type: acute cystitis Hematuria presence: without hematuria Qualified Code(s): N30.00 - Acute cystitis without hematuria Disposition: Home, Self-Care Condition on Discharge: Good Prescriptions: cefUROXime axetiL [Ceftin 250mg Tablet] 250 mg PO BID #14 tab Transmission Status: Pending to [id number] Referrals: Leander Vasquez MD [Primary Care Provider] - - Critical Care Critical Care Time: No Attestation: On 12/03/20, the high probability of a clinically significant, sudden or life threatening deterioration of the following system(s) required my full and direct attention, intervention and personal management. The time I documented below is in addition to time spent performing reported procedures but includes the following listed in this critical care notation. Medical Decision Making - Medical Records Medical records reviewed: Yes: I reviewed the patient's medical records. - Julio Inquiry Pt receiving controlled substance: No Vital Signs: 12/03/20 15:33 12/03/20 15:57 Temperature 97.6 F Temperature Source Oral Pulse Rate [Right Radial] 71 80 Respiratory Rate 18 Blood Pressure [Right Arm] 116/76 110/63 Blood Pressure Mean [Right Arm] 89 78 Blood Pressure Source [Right Arm] Automatic Cuff Automatic Cuff Blood Pressure Position [Right Arm] Sitting Sitting 02 Sat by Pulse Oximetry 99 98 Oxygen Delivery Method Room Air Room Air - Lab Data Lab results reviewed: Yes: I reviewed the patient's lab results. Lab Results 12/03/20 15:37: Urine Color Yellow, Urine Appearance Clear, Urine pH 6.0, Ur Specific [place] 1.020, Urine Protein Negative, Urine Glucose (UA) Negative, Urine Ketones Negative, Urine Blood Negative, Urine Nitrate Negative, Urine Bilirubin Negative, Urine Urobilinogen 0.2, Ur Leukocyte Esterase 1+ A, Urine RBC None, Urine WBC 3-5, Ur Squamous Epith Cells 3-5, Urine Bacteria Trace 12/03/20 15:37: Urine HCG, Qual Positive Orders (Tests/Meds): ORDERS Category Date Time Status HCG,Quantitative Stat Lab 12/03/20 16:23 Received Urine Culture Stat Micro 12/03/20 15:37 Received HPI - General Chief complaint: OB/Uterine Contractions Stated complaint: 6 weeks , stomach cramps Time Seen by Provider: 12/03/20 15:55 Mode of Arrival: Ambulatory Limitations: No Limitations Description of Symptoms (Recalled from ER Triage Doc. by RN): Pt reports cramping all over abd that began lastnight, pt reports she is approx 6-7 weeks . Pt denies any vaginal bleeding or discharge. Pt reports is to see her OB for first visit next week. - History of Present Illness HPI Narrative: This is a 20-year-old female that presents with diffuse abdominal cramping since last evening. Symptoms are intermittent with variable timing and intensity. No fever no chills no dysuria no hematuria no mucus or bloody discharge. No palliating or provoking measures. Symptoms are moderate in intensity. No vomiting diarrhea. : Yes Date of Last Menstrual Period: [id number] - Related Data Para: 1 Previous Rx's Medication Instructions Recorded medroxyprogesterone 150 mg/mL 150 mg IM [id number] #1 ml 10/18/20 intramuscular suspension cefUROXime axetiL [Ceftin 250mg 250 mg PO BID #14 tab 12/03/20 Tablet] Allergies Allergy/AdvReac Type Severity Reaction Status Date / Time No Known Allergies Allergy Verified 10/18/20 13:37 [facility] History - Hepatitis A Screen Drug use history?: No High risk sexual behaviors?: No History of sexually transmitted infection?: No Currently employed?: No Childcare worker?: No Do you have indoor plumbing?: Yes Do you have electricity?: Yes Attestation statement:: This patient has been screened for Hepatitis A risk factors. I have reviewed the patient's past medical history: Yes 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: Denies:: Cancer, Diabe
[2020-12-03 16:47] VITALS: BP 116/67; PULSE 78; RESP 19; TEMP 36.4; O2SAT 98
[2020-12-03 17:27] LABS: HCG,Quantitative 107890 mIU/ml (0-5.42)
== END 2020-12-03 17:00 | disposition home or self-care (01) ==
PROVIDERS: Emergency Provider Emergency Medicine; PCP Family Medicine
DX: O23.11 Infections of bladder in pregnancy, first trimester (principal); N30.00 Acute cystitis without hematuria; Z3A.01 Less than 8 weeks gestation of pregnancy
CPT/HCPCS: 81001; 81025; 84702; 87086; 96372; 99282

== ENCOUNTER → 2020-12-12 09:29 | Outpatient (CLI) | payer BC, SELFPAY ==
--- NOTE | 2020-12-12 09:30 | US_ITS ---
PROCEDURE: US OB <= 14 WEEKS FETUS CLINICAL INDICATION: for dates COMPARISON: US US OB BPP W/FET-MAT S/D from 05/25/2020 FINDINGS: An intrauterine gestational sac is present with a pole with a crown-rump length of 4 cm correlating to gestational age of 11 weeks 0 days. heart tones are present with an FHR of 170 BPM. Yolk sac is noted. Unremarkable adnexa IMPRESSION: Live IUP at 11 weeks. Estimated due date by Ultrasound is 07/03/2021 Dictated by: Benny Byrnes MD 12/13/2020 06:19 Benny Byrnes MD in [place] 12/13/2020 06:19
[2020-12-12 11:13] LABS: Basophils # 0.1 K/mm3 (0-0.2); Basophils % 0.8 % (0.1-2.0); Eosinophils # 0.1 K/mm3 (0.0-0.4); Eosinophils % 0.6 % (0.1-12.0); Hematocrit 41.8 % (37.0-47.0); Hemoglobin 13.8 g/dL (12.2-16.2); Lymphocytes # 2.4 K/mm3 (0.7-4.5); Lymphocytes % 27.3 % (10-50); Mean Corpuscular Hemoglobin 27.2 pg (27.0-31.2); Mean Corpuscular Volume 82.5 fl (81-99); Mean Platelet Volume 7.4 fl (7.4-10.4); Monocytes # 0.3 K/mm3 (0.1-1.0); Monocytes % 3.5 % (1.7-9.3); Neutrophils # 5.9 K/mm3 (1.8-7.8); Neutrophils % 67.9 % (37.0-80.0); Platelet Count 288 K/mm3 (142-424); Red Blood Count 5.07 M/mm3 (4.20-5.40); Red Cell Distribution Width 14.7 % (11.5-17.5); White Blood Count 8.7 K/mm3 (4.8-10.8)
[2020-12-13 08:26] LABS: HIV Screen 4th Generation wRfx Non Reactive (Non Reactive)
[2020-12-13 08:36] LABS: Hepatitis B Surface Antigen Negative (Negative); Hepatitis C Antibody <0.1 s/co ratio (0.0-0.9); Rubella Antibodies, IgG 4.02 index (Immune >0.99)
[2020-12-14 10:16] LABS: Rapid Plasma Reagin Ab Titer Non Reactive (NonRea<1:1)
== END ==
PROVIDERS: PCP Family Medicine; Visit Provider Nurse Practitioner Obstetrics & Gynecology
DX: Z34.90 Encounter for supervision of normal pregnancy, unspecified, unspecified trimester (principal)
CPT/HCPCS: 36415; 76801; 85025; 86592; 86703; 86762; 86850; 87340; 87380; G0432

== ENCOUNTER → 2020-12-12 10:10 | Outpatient (CLI) | payer BC, SELFPAY | PROVIDERS: Visit Provider Nurse Practitioner Obstetrics & Gynecology | DX: Z34.90 Encounter for supervision of normal pregnancy, unspecified, unspecified trimester (principal) | CPT/HCPCS: 36415; 85025; 86592; 86703; 86762; 86850; 87340; 87380; G0432 ==

== ENCOUNTER 2021-01-05 14:45 | Emergency (ER) | payer BC, SELFPAY ==
[2021-01-05 15:02] VITALS: BP 130/73; PULSE 62; RESP 19; TEMP 36.6; O2SAT 98; BMI 27.3
--- NOTE | 2021-01-05 15:16 | HMH.EDUTC ---
[facility] [place] Disposition Clinical Impression: Candidiasis Qualifiers: Weeks of gestation: 15 weeks Qualified Code(s): Z3A.15 - 15 weeks gestation of Disposition: Home, Self-Care Condition on Discharge: Good Instructions: DI for Vaginal Yeast Infection Prescriptions: Fluconazole [Diflucan 150mg tab] 150 mg PO ONCE 1 Days #1 tab Transmission Status: Pending to [id number] Referrals: Leander Vasquez MD [Primary Care Provider] - Time of Disposition: 15:52 Medical Decision Making - Julio Inquiry Pt receiving controlled substance: No Vital Signs: 01/05/21 15:02 Temperature 97.8 F Temperature Source Oral Pulse Rate [Right Brachial] 62 Respiratory Rate 19 Blood Pressure [Right Arm] 130/73 Blood Pressure Mean [Right Arm] 92 Blood Pressure Source [Right Arm] Automatic Cuff Blood Pressure Position [Right Arm] Sitting 02 Sat by Pulse Oximetry 98 Oxygen Delivery Method Room Air - Lab Data Lab results reviewed: Yes: I reviewed the patient's lab results. [facility] [place] HPI - General Stated complaint: discomfort in female area Time Seen by Provider: 01/05/21 15:16 Mode of Arrival: Ambulatory Source of Information: Patient Limitations: No Limitations Description of Symptoms (Recalled from Triage Doc. by RN): Vaginal itching, burning and discharged x 2 days. 15 weeks HEENT Symptoms (Recalled from RN notes): No Resp Symptoms (Recalled from RN notes): No Skin Symptoms (Recalled from RN notes): No MS Symptoms (Recalled from RN notes): No Functional Status (Recalled from RN notes): wnl - History of Present Illness Provider Complaint: Vaginal itching, discharge and musty odor after taking a bubble bath last night. She is 15 weeks . Onset (ago): day(s) (1) Location: genitals Relieving factors: none Exacerbating factors: none Treatments prior to arrival: none - Related Data Home Medications Medication Instructions Recorded Confirmed cefuroxime axetil 250 mg tablet 250 mg PO BID 12/06/20 12/06/20 prenat.vits,marisol,[id number] 1 tab PO DAILY 12/06/20 12/06/20 Previous Rx's Medication Instructions Recorded Fluconazole [Diflucan 150mg tab] 150 mg PO ONCE 1 Days #1 tab 01/05/21 Allergies Allergy/AdvReac Type Severity Reaction Status Date / Time No Known Allergies Allergy Verified 12/06/20 14:11 - Worker's Comp Is this a Worker's Comp case?: No [facility] History - Hepatitis A Screen Drug use history?: No High risk sexual behaviors?: No History of sexually transmitted infection?: No Currently employed?: No Childcare worker?: No Do you have indoor plumbing?: Yes Do you have electricity?: Yes Attestation statement:: This patient has been screened for Hepatitis A risk factors. I have reviewed the patient's past medical history: Yes 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: Denies:: Cancer, Diabetes Mellitus Type 1, Diabetes Mellitus Type 2, MRSA Other 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: Reports: Other Laterality Cases: Bilateral: Tonsillectomy, Other Other Surgeries: Yes: No Previous Surgery, Amputation: No Fractures: No - Social History Smoking Status: Never smoker Alcohol Intake: never Substance Use Type: denies use Occupational Status: employed Housing: apartment Household Members: spouse Family Hx:: Hypertension, Cancer, Stroke ROS Obtained: Yes All systems reviewed & no additional complaints - Genitourinary Female Genitourinary: Reports vaginal discharge, Reports vaginal odor, Reports vaginal itching Physical Exam - General General appearance: alert, in no apparent distress - Head Head exam: normocephalic - Eye Eye exam: Present: PERRL - ENT ENT exam: Present: normal oropharynx - Respiratory Respiratory exam: Present: normal lung sounds bilaterally - Cardiovascular Cardiovascular exam: Present: regular rate, normal rhythm - Neurological Exam Neurological exam: Present: alert, oriented X3 - Psychiatric Psychiatric exam: Present: normal affect, n
[2021-01-05 15:54] VITALS: BP 130/73; PULSE 62; RESP 19; TEMP 36.6; O2SAT 98
== END 2021-01-05 15:56 | disposition home or self-care (01) ==
PROVIDERS: Emergency Provider Physician Assistant; PCP Family Medicine
DX: B37.3 Candidiasis of vulva and vagina (principal); Z3A.15 15 weeks gestation of pregnancy
CPT/HCPCS: 87210; 99202; G0463

== ENCOUNTER 2021-01-30 17:50 | Emergency (ER) | payer BC, SELFPAY ==
--- NOTE | 2021-01-30 18:00 | PC.NURSE ---
FHT'S AUSCULTATED AT 143 BMP AT THIS TIME.
[2021-01-30 18:22] VITALS: BP 114/74; PULSE 84; O2SAT 96
[2021-01-30 18:45] VITALS: BP 135/77; PULSE 78; RESP 18; TEMP 36.8; O2SAT 95; BMI 27.3
--- NOTE | 2021-01-30 18:50 | PC.NURSE ---
PT C/O SCAR BURNING AND PAIN, DR. ADAMS STATES TO COME IN AND HAVE ULTRASOUND OF UTERUS TO CHECK FOR PERFORATION. PT LAST 05/29/20. JN 07/03/2021. PT CURRENTLY 18 WKS . PT DENIES VAGINAL BLEEDING, LEAKING OF FLUID, OR CONTRACTIONS. PT IS A AB1 L1.
[2021-01-30 18:52] VITALS: BP 135/77; PULSE 78; RESP 18; TEMP 36.8; O2SAT 95
--- NOTE | 2021-01-30 18:53 | US_ITS ---
PROCEDURE: US OB >= 14 WEEKS FETUS CLINICAL INDICATION: possible perforated uterus Pelvic pain. Prior with pain in the area of the . Evaluate for possible perforated uterus COMPARISON: US US OB <= 14 WEEKS FETUS from 12/12/2020 FINDINGS: There is a single live fetus present in breech presentation. Average ultrasound age is 18 weeks 2 days. BPD 18 weeks 5 days, HC 18 weeks 1 day, AC 18 weeks 0 days, FL 18 weeks 4 days. All parameters correlate. motion is noted. Heart tones are present at 142 BPM. Estimated weight is 228 g. The placenta is anterior and grade 1. The cervix is closed. No retroplacental hemorrhage apparent. No evidence of previa. TATA is normal at 14 cm. IMPRESSION: Live IUP in breech presentation with an average ultrasound age of 18 weeks 2 days. Anterior grade 1 placenta. No evidence of subchorionic bleed or placenta previa. Estimated due date by Ultrasound is Dictated by: Benny Byrnes MD 01/31/2021 06:01 Benny Byrnes MD in [facility] 01/31/2021 06:01
[2021-01-30 19:00] LABS: Microscopic, Urine URINE MICROSCOPIC (MICROSCOPIC)
--- NOTE | 2021-01-30 19:00 | PC.NURSE ---
REPORT GIVEN TO Megan SIMMS RN
[2021-01-30 19:02] LABS: Chloride 107 mmol/L (98-107); Sodium 135 mmol/L (136-145)
[2021-01-30 19:03] LABS: Basophils # 0.1 K/mm3 (0-0.2); Basophils % 0.5 % (0.1-2.0); Eosinophils # 0.1 K/mm3 (0.0-0.4); Eosinophils % 0.6 % (0.1-12.0); Hematocrit 37.9 % (37.0-47.0); Hemoglobin 12.6 g/dL (12.2-16.2); Lymphocytes # 2.4 K/mm3 (0.7-4.5); Lymphocytes % 22.1 % (10-50); Mean Corpuscular HGB Conc 33.3 g/dL (31.8-35.4); Mean Corpuscular Hemoglobin 27.7 pg (27.0-31.2); Mean Corpuscular Volume 83.2 fl (81-99); Mean Platelet Volume 7.9 fl (7.4-10.4); Monocytes # 0.5 K/mm3 (0.1-1.0); Monocytes % 4.5 % (1.7-9.3); Neutrophils # 7.9 K/mm3 (1.8-7.8); Neutrophils % 72.3 % (37.0-80.0); Platelet Count 243 K/mm3 (142-424); Red Blood Count 4.55 M/mm3 (4.20-5.40); Red Cell Distribution Width 13.5 % (11.5-17.5)
[2021-01-30 19:04] LABS: Appearance,Urine CLEAR (Clear); Bilirubin,Urine Negative (Negative); Blood, Urine Negative (Negative); Color,Urine YELLOW (Yellow); Glucose,Urine (UA) Negative (Negative); Ketones,Urine Negative (Negative); Leukocyte Esterase,Urine Negative (Negative); Nitrate,Urine Negative (Negative); Protein,Urine Negative (Negative); Specific Gravity, Urine 1.025 (1.005-1.030); Urobilinogen,Urine 0.2 EU/dl (0.2)
[2021-01-30 19:05] LABS: Blood Urea Nitrogen 6 mg/dl (7-17); Creatinine Clearance Estimated 292 mL/min (50-200); Estimated Glomerular Filt Rate 200 ml/min (>60); GFR (African American) 242 ML/MIN (>60)
[2021-01-30 19:06] LABS: Calcium 9.2 mg/dl (8.4-10.2); Carbon Dioxide 23 mmol/L (22.0-30.0); Glucose 81 mg/dl (74-100)
[2021-01-30 19:09] LABS: Bacteria,Urine Trace /lpf; Squamous Epithelial Cell,Urine Occasional #/hpf (0-5); Urine Pregnancy, HCG Qual. Positive (Negative); WBC,Urine Occasional #/hpf (0-3)
--- NOTE | 2021-01-30 20:40 | PC.NURSE ---
Addendum entered by Lakshmi Ortiz RN 01/30/21 20:42: correction: pt off floor @ 2009, returned at 2040 Original Note: pt off floor for u/s
--- NOTE | 2021-01-30 20:45 | HMH.EDGENADL ---
ED Disposition Clinical Impression: Qualifiers: Weeks of gestation: 18 weeks Qualified Code(s): Z3A.18 - 18 weeks gestation of Disposition: Home, Self-Care Condition on Discharge: Good Instructions: DI for -- Discomforts and Remedies Additional Instructions: call dr panda for follow up Referrals: Leander Vasquez MD [Primary Care Provider] - Jeanmarie Panda MD [Staff Physician] - - Critical Care Critical Care Time: No Attestation: On 01/30/21, the high probability of a clinically significant, sudden or life threatening deterioration of the following system(s) required my full and direct attention, intervention and personal management. The time I documented below is in addition to time spent performing reported procedures but includes the following listed in this critical care notation. Medical Decision Making - Medical Records Medical records reviewed: Yes: I reviewed the patient's medical records. - Julio Inquiry Pt receiving controlled substance: No Vital Signs: 01/30/21 18:22 01/30/21 18:45 01/30/21 18:52 Temperature 98.3 F 98.3 F Temperature Source Oral Oral Pulse Rate 84 78 Pulse Rate [Right Radial] 78 Respiratory Rate 18 18 Blood Pressure 114/74 135/77 Blood Pressure [Right Arm] 135/77 Blood Pressure Mean [Right Arm] 96 Blood Pressure Source Automatic Cuff Automatic Cuff Blood Pressure Source [Right Arm] Automatic Cuff Blood Pressure Position Supine Blood Pressure Position [Right Arm] Supine 02 Sat by Pulse Oximetry 96 95 95 Oxygen Delivery Method Room Air Room Air Room Air - Lab Data Lab results reviewed: Yes: I reviewed the patient's lab results. Lab Results 01/30/21 18:15: Urine Color Yellow, Urine Appearance Clear, Urine pH 6.0, Ur Specific [place] 1.025, Urine Protein Negative, Urine Glucose (UA) Negative, Urine Ketones Negative, Urine Blood Negative, Urine Nitrate Negative, Urine Bilirubin Negative, Urine Urobilinogen 0.2, Ur Leukocyte Esterase Negative, Urine RBC None, Urine WBC Occasional, Ur Squamous Epith Cells Occasional, Urine Bacteria Trace 01/30/21 18:15: Urine HCG, Qual Positive 01/30/21 18:30: WBC 11.0 H, RBC 4.55, Hgb 12.6, Hct 37.9, MCV 83.2, MCH 27.7, MCHC 33.3, RDW 13.5, Plt Count 243, MPV 7.9, Neut % (Auto) 72.3, Lymph % (Auto) 22.1, [place] % (Auto) 4.5, Eos % (Auto) 0.6, Baso % (Auto) 0.5, Neut # (Auto) 7.9 H, Lymph # (Auto) 2.4, [place] # (Auto) 0.5, Eos # (Auto) 0.1, Baso # (Auto) 0.1 01/30/21 18:30: Sodium 135 L, Potassium 4.0, Chloride 107, Carbon Dioxide 23, Anion Gap 9.0, BUN 6 L, Creatinine 0.40 L, Estimated Creat Clear 292, Estimated GFR 200, Est GFR ( Amer) 242, Glucose 81, Calcium 9.2 Result diagrams: 01/30/21 18:30 01/30/21 18:30 Orders (Tests/Meds): ORDERS Category Date Time Status US OB >= 14 weeks Fetus Stat Ultrasound 01/30/21 18:53 Taken - US Data US Images: Pelvis ED US Reviewed: Yes: I discussed the US results w/the radiologist Preliminary Findings: Normal/NAD (iup) General Adult HPI - General Chief complaint: PAIN Stated complaint: 18 wks , lot of pain in abdominal area. Time Seen by Provider: 01/30/21 20:00 Mode of Arrival: Ambulatory Source of Information: Patient, Medical Record Limitations: No Limitations Description of Symptoms (Recalled from ER Triage Doc. by RN): Pt c/o section scar burning and tender. pt currently [address] panda states to come to ED to get ultrasound of uterus. - History of Present Illness HPI narrative: 18 weeks w/o vag bleeding feels like tearing at prev c sec scar Onset (ago): hour(s) Severity: moderate Associated symptoms: denies other symptoms Treatments prior to arrival: none - Related Data Home Medications Medication Instructions Recorded Confirmed prenat.vits,marisol,pbj-vekc-[id number] 1 tab PO DAILY 12/06/20 01/30/21 Terconazole 1 appful VAGINAL HS 01/30/21 01/30/21 Allergies Allergy/AdvReac Type
[2021-01-30 21:03] VITALS: BP 128/74; PULSE 75; RESP 18; TEMP 36.9; O2SAT 95
== END 2021-01-30 21:05 | disposition home or self-care (01) ==
PROVIDERS: Emergency Provider Emergency Medicine; PCP Family Medicine
DX: O20.9 Hemorrhage in early pregnancy, unspecified (principal); Z3A.18 18 weeks gestation of pregnancy
CPT/HCPCS: 76805; 80048; 81001; 81025; 85025; 99282

== ENCOUNTER → 2021-02-16 12:41 | Outpatient (CLI) | payer BC, SELFPAY ==
--- NOTE | 2021-02-16 12:42 | US_ITS ---
PROCEDURE: US OB /MATERNAL DETAIL CLINICAL INDICATION: US OB Complete-20wk+ Anatomy Scan COMPARISON: US US OB >= 14 WEEKS FETUS from 01/30/2021 FINDINGS: There is a single live fetus present which is in breech presentation. The cervix is closed and measures 3 cm. The placenta is anterior and grade 1. Complete survey performed and was unremarkable on the submitted images as in PACS. No discrete anomalies identified on survey imaging by technologist. Active fetus. Three-vessel cord with satisfactory umbilical cord insertion. 4- chamber heart noted. Survey of brain & ventricles Unremarkable. Face and neck survey unremarkable. Diaphragm and chest views unremarkable. Abdomen: Both kidneys noted and unremarkable. Stomach noted and satisfactory. Spine: Survey of the spine satisfactory with no anomalies identified nor imaged. Both arms and legs noted. Amniotic Fluid: Adequate. Maternal adnexa: No significant findings. Measurements: Average ultrasound age 20weeks. Gestational Age 20weeks 3days Estimated due date by ultrasound age 0807/06/2021. Estimated weight 331g BPD = 20weeks OFD = 20weeks 2days HC = 19weeks 3days AC = 20weeks 3days FL = 20weeks Growth Percentile= 27Percent% Heart Rate = 142bpm Cerebellum = 20weeks 2days Humerus = 20weeks 5days HC/AC is 1.1 CI is 0.78 FL/BPD is 0.69 FL/AC is 0.21 IMPRESSION: Live IUP in breech presentation with an average ultrasound age of 20 weeks. No obvious anomalies. Please see above for detail Dictated by: Benny Byrnes MD 02/17/2021 13:08 Benny Byrnes MD in [facility] 02/17/2021 13:08
== END ==
PROVIDERS: PCP Family Medicine; Visit Provider Nurse Practitioner Obstetrics & Gynecology
DX: Z36.0 Encounter for antenatal screening for chromosomal anomalies (principal)
CPT/HCPCS: 76811

== ENCOUNTER 2021-04-04 12:01 | Outpatient (CLI) | payer BC, SELFPAY ==
[2021-04-04 14:41] LABS: Glucose 1 Hour 118 mg/dL (74-100); Glucose,Fasting 118 mg/dl (74-100)
[2021-04-04 15:17] VITALS: BP 111/88; PULSE 96; RESP 18; O2SAT 98
== END 2021-04-04 15:18 | disposition home or self-care (01) ==
PROVIDERS: PCP Family Medicine; Visit Provider Nurse Practitioner Obstetrics & Gynecology
DX: Z34.90 Encounter for supervision of normal pregnancy, unspecified, unspecified trimester (principal)
CPT/HCPCS: 36415; 82951; 96372; J2790

== ENCOUNTER 2021-05-22 14:58 | Outpatient (CLI) | payer BC, SELFPAY ==
[2021-05-22 15:17] VITALS: BMI 30.5
[2021-05-22 15:28] LABS: Microscopic, Urine URINE MICROSCOPIC (MICROSCOPIC)
[2021-05-22 15:46] LABS: Barbiturates Screen,Urine Negative ng/ml (<200)
[2021-05-22 15:47] VITALS: RESP 20
[2021-05-22 15:47] LABS: Amphetamine/Metha Screen,Urine Negative ng/ml (<1000); Benzodiazepines Screen,Urine Negative ng/ml (<200)
[2021-05-22 15:48] LABS: Methadone Screen,Urine Negative ng/ml (<300)
[2021-05-22 15:49] LABS: Cannabinoid Screen,Urine Negative ng/ml (<50); Cocaine Screen,Urine Negative ng/ml (<300)
[2021-05-22 15:50] LABS: Opiate Screen,Urine Negative ng/ml (<300)
[2021-05-22 15:51] LABS: Phencyclidine Screen,Urine Negative ng/ml (<25)
[2021-05-22 16:02] VITALS: BP 122/81; PULSE 80; RESP 18; TEMP 36.4; O2SAT 100; BMI 30.8
[2021-05-22 16:22] LABS: Appearance,Urine CLOUDY (Clear); Bilirubin,Urine Negative (Negative); Blood, Urine Negative (Negative); Color,Urine YELLOW (Yellow); Glucose,Urine (UA) Negative (Negative); Ketones,Urine Negative (Negative); Leukocyte Esterase,Urine 3+ (Negative); Nitrate,Urine Negative (Negative); Protein,Urine Negative (Negative)
== END 2021-05-22 17:00 | disposition home or self-care (01) ==
LOC: OBOUT 14:59 → OB 15:00
PROVIDERS: PCP Family Medicine; Visit Provider Nurse Practitioner Obstetrics & Gynecology
DX: O26.893 Other specified pregnancy related conditions, third trimester (principal); Z3A.34 34 weeks gestation of pregnancy; R10.30 Lower abdominal pain, unspecified
CPT/HCPCS: 59025; 80305; 81001; 87086; 96365; 96367; G0463; J0595

== ENCOUNTER → 2021-06-05 17:40 | Outpatient (CLI) | payer BC, SELFPAY | PROVIDERS: Visit Provider Nurse Practitioner Obstetrics & Gynecology | DX: Z34.90 Encounter for supervision of normal pregnancy, unspecified, unspecified trimester (principal) | CPT/HCPCS: 86403 ==

== ENCOUNTER 2021-06-09 20:16 | Outpatient (CLI) | payer BC, SELFPAY ==
[2021-06-09 20:34] VITALS: BMI 31.1
[2021-06-09 21:09] VITALS: BP 125/68; PULSE 104; RESP 18; TEMP 36.7; O2SAT 97; BMI 31.1
[2021-06-09 21:12] LABS: Microscopic, Urine URINE MICROSCOPIC (MICROSCOPIC)
[2021-06-09 21:20] LABS: Appearance,Urine CLEAR (Clear); Bilirubin,Urine Negative (Negative); Blood, Urine Negative (Negative); Color,Urine YELLOW (Yellow); Glucose,Urine (UA) Negative (Negative); Ketones,Urine Negative (Negative); Leukocyte Esterase,Urine TRACE (Negative); Nitrate,Urine Negative (Negative); Protein,Urine Negative (Negative); Urobilinogen,Urine 0.2 EU/dl (0.2)
[2021-06-09 21:26] LABS: Barbiturates Screen,Urine Negative ng/ml (<200); Benzodiazepines Screen,Urine Negative ng/ml (<200)
[2021-06-09 21:27] LABS: Amphetamine/Metha Screen,Urine Negative ng/ml (<1000)
[2021-06-09 21:28] LABS: Cannabinoid Screen,Urine Negative ng/ml (<50); Cocaine Screen,Urine Negative ng/ml (<300); RBC,Urine Occasional #/hpf (0-3)
[2021-06-09 21:29] LABS: Methadone Screen,Urine Negative ng/ml (<300)
[2021-06-09 21:30] LABS: Opiate Screen,Urine Negative ng/ml (<300); Phencyclidine Screen,Urine Negative ng/ml (<25)
== END 2021-06-09 22:15 | disposition home or self-care (01) ==
LOC: OBOUT 20:18 → OB 20:19
PROVIDERS: PCP Nurse Practitioner Obstetrics & Gynecology; Visit Provider Nurse Practitioner Obstetrics & Gynecology
DX: O47.03 False labor before 37 completed weeks of gestation, third trimester (principal); Z3A.36 36 weeks gestation of pregnancy; M54.5 Low back pain
CPT/HCPCS: 59025; 80305; 81001; G0463

== ENCOUNTER → 2021-06-27 08:18 | Outpatient (CLI) | payer BC, SELFPAY ==
[2021-06-28 08:52] LABS: Hepatitis B Surface Antigen Negative (Negative); Hepatitis C Antibody <0.1 s/co ratio (0.0-0.9); Rubella Antibodies, IgG 3.29 index (Immune >0.99)
[2021-06-28 10:27] LABS: HIV Screen 4th Generation wRfx Non Reactive (Non Reactive); Rapid Plasma Reagin Ab Titer Non Reactive (NonRea<1:1)
== END ==
PROVIDERS: Visit Provider Nurse Practitioner Obstetrics & Gynecology
DX: Z34.90 Encounter for supervision of normal pregnancy, unspecified, unspecified trimester (principal)
CPT/HCPCS: 36415; 86592; 86703; 86762; 87340; 87380; G0432

== ENCOUNTER → 2021-06-28 10:15 | Outpatient (CLI) | payer BC, OTHER, SELFPAY ==
[2021-06-28 10:54] LABS: Basophils # 0.1 K/mm3 (0-0.2); Basophils % 0.5 % (0.1-2.0); Eosinophils # 0.1 K/mm3 (0.0-0.4); Hematocrit 40.6 % (37.0-47.0); Hemoglobin 13.1 g/dL (12.2-16.2); Lymphocytes % 23.7 % (10-50); Mean Corpuscular HGB Conc 32.3 g/dL (31.8-35.4); Mean Corpuscular Hemoglobin 27.5 pg (27.0-31.2); Mean Corpuscular Volume 85.1 fl (81-99); Mean Platelet Volume 7.8 fl (7.4-10.4); Monocytes # 0.5 K/mm3 (0.1-1.0); Neutrophils % 70.8 % (37.0-80.0); Platelet Count 222 K/mm3 (142-424); Red Blood Count 4.77 M/mm3 (4.20-5.40); White Blood Count 12.8 K/mm3 (4.8-10.8)
[2021-06-28 11:18] LABS: Anion Gap 12.1 mEq/L (5-15); Blood Urea Nitrogen 9 mg/dl (7-17); Calcium 8.9 mg/dl (8.4-10.2); Carbon Dioxide 24 mmol/L (22.0-30.0); Chloride 104 mmol/L (98-107); Estimated Glomerular Filt Rate 124 ml/min (>60); GFR (African American) 150 ML/MIN (>60); Glucose 84 mg/dl (74-100); Potassium 4.1 mmoL/L (3.5-5.1); Sodium 136 mmol/L (136-145)
== END ==
PROVIDERS: Visit Provider Nurse Practitioner Obstetrics & Gynecology
DX: Z01.818 Encounter for other preprocedural examination (principal); Z11.52 Encounter for screening for COVID-19; Z34.90 Encounter for supervision of normal pregnancy, unspecified, unspecified trimester
CPT/HCPCS: 36415; 80048; 85025; U0003

== ENCOUNTER 2021-06-29 04:35 | Inpatient (IN) | payer BC, OTHER, SELFPAY ==
[2021-06-29] VITALS (7 sets, daily range): BP systolic 104–121; BP diastolic 55–79; PULSE 66–100; RESP 16–20; TEMP 36.1–36.8; O2SAT 96–99; BMI 32.0; BMI 32.1
[2021-06-29 05:18] LABS: Microscopic, Urine URINE MICROSCOPIC (MICROSCOPIC)
[2021-06-29 05:30] LABS: Bilirubin,Urine Negative (Negative); Blood, Urine Negative (Negative); Color,Urine YELLOW (Yellow); Glucose,Urine (UA) Negative (Negative); Ketones,Urine Negative (Negative); Leukocyte Esterase,Urine 3+ (Negative); Nitrate,Urine Negative (Negative); Protein,Urine Negative (Negative); Urobilinogen,Urine 0.2 EU/dl (0.2)
[2021-06-29 05:44] LABS: Amphetamine/Metha Screen,Urine Negative ng/ml (<1000)
[2021-06-29 05:45] LABS: Barbiturates Screen,Urine Negative ng/ml (<200); Benzodiazepines Screen,Urine Negative ng/ml (<200)
[2021-06-29 05:46] LABS: Appearance,Urine Cloudy (Clear); Cannabinoid Screen,Urine Negative ng/ml (<50)
[2021-06-29 05:47] LABS: Bacteria,Urine 1+ /lpf; Cocaine Screen,Urine Negative ng/ml (<300); Methadone Screen,Urine Negative ng/ml (<300); Mucus,Urine 1+ /lpf
[2021-06-29 05:48] LABS: Opiate Screen,Urine Negative ng/ml (<300)
[2021-06-29 05:49] LABS: Phencyclidine Screen,Urine Negative ng/ml (<25)
[2021-06-29 08:00] LABS: Cord Blood PH 7.38 (7.35-7.45)
--- NOTE | 2021-06-29 08:30 | HMH.OPNOTE ---
Date of procedure: 06/29/21 Pre-op Diagnosis:: Term , previous section, desire for sterilization Post-op Diagnosis:: Term , previous section, desire for sterilization Procedure performed:: Repeat lower segment transverse section and bilateral salpingectomy Surgeon:: Jeanmarie Panda MD Clinical Physician Assistant(s):: Merissa Hoang HAND PATCHER:: Other (Simon Veloz) Anesthesia: spinal Estimated blood loss (mL): 600 Clinical Note:: She is a 21-year-old 3 para 1 aborta 1 who is 39 and 3 weeks gestational age. She had a previous section and as result of that was offered repeat lower segment transverse section at term. She also expressed desire for sterilization. The risks and benefits as well as irreversibility of bilateral salpingectomy were discussed with the patient. Operative findings:: She delivered a liveborn male child at 7:51 AM on the morning of June 29, 2021. Baby had Apgars of 9 at 1 minute and 9 at 5 minutes. Tubes and ovaries appeared normal. Operative note:: She was taken to the operating room where spinal anesthesia was found be adequate. She was prepped and draped in normal sterile fashion in the supine position with a leftward tilt. A Gonzalez catheter was in the bladder. A Pfannenstiel skin incision was made with knife then carried through to the underlying layer of fascia with cautery. The fascia was opened in the midline with cautery and extended laterally using Mcnulty scissors. Ponce clamps were applied to the superior aspect of the fascial incision which was tented up and the underlying rectus muscles dissected off using cautery. The Ponce clamps were then applied to the inferior aspect of the fascial incision which in a similar fashion was tented up and the underlying rectus muscles dissected off using cautery. The rectus muscles were then in the midline, the peritoneum identified, and entered sharply with Metzenbaum scissors. This incision was then extended superiorly and inferiorly with cautery. We had good visualization of the bladder inferiorly. The bladder peritoneum was then opened in the midline and extended laterally using Metzenbaum scissors. A bladder flap was created digitally. Transverse incision was made through the uterine muscle to the amnion. This incision was then extended laterally using fingers traction. The amnion was entered sharply with knife. There was clear amniotic fluid. The 's head was then delivered atraumatically. This was followed by the anterior shoulder and the rest of the infant's body atraumatically. The oropharynx and nasopharynx were bulb suctioned. The infant was then handed off to Dr. Wiseman who assigned Apgars of 9 at 1 minute and 9 at 5 minutes. We then obtained cord blood as well as cord pH. Using gentle traction on the cord and countertraction on the fundus I was able to easily deliver the placenta intact. It had a normal three-vessel cord. The uterus was then cleared of clots and debris . The uterus was then exteriorized from the abdominal cavity. The uterine incision was then closed using running 0 Vicryl suture in a locked fashion. A second layer of the same suture was used to imbricate the first layer. The bladder peritoneum was then closed using running 2-0 Vicryl suture in a locked fashion. The gutters and cul-de-sac were then cleared of clots and debris . Once again hemostasis was assured. We then performed a bilateral salpingectomy. The distal end of the tube was grasped with my fingers and using the endoseal I cut through the mesosalpinx. I then cut across the tube close to the cornua. This was similarly performed on the opposite side. Tubes were sent to pathology. After once again assuring hemostasis the uterus was then returned to the abdominal cavity. The peritoneum was grasped with Willa clamps and closed using running 2-0 Vicryl suture. The rectus muscles were then reapproximated using running 0
--- NOTE | 2021-06-29 08:36 | HMH.OBAPHP ---
OB - H&P: HPI Antepartum - History of Present Illness Chief complaint: Term , previous section, desire for sterilization History of present illness: She is a 21-year-old 3 para 1 aborta 1 who is had a previous section. She is term at 39 weeks and 3 days. She also expressed desire for sterilization. She is here for repeat lower segment transverse section and bilateral salpingectomy. - History of Present Criteria for establishing EDC:: LMP confirmed by 1st trimester US care: good care Ultrasounds: normal 1st trimester US, normal mid trimester US Obstetrical complications: none Medical complications: none [facility] History I have reviewed the patient's past medical history: Yes 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: Denies:: Cancer, Diabetes Mellitus Type 1, Diabetes Mellitus Type 2, MRSA *Have you ever received a pneumonia vaccine?: No *Have you received a flu vaccine this season?: No Other 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: Reports: Other Laterality Cases: Bilateral: Tonsillectomy, Other Other Surgeries: Yes: No Previous Surgery, Amputation: No Fractures: No - *Social History Smoking Status: Never smoker Alcohol Intake: never Alcohol Intake Frequency:: other Substance Use Type: denies use *Occupational Status:: employed Housing: house Household Members: spouse, children *Travel in the last 8 weeks: None Family Hx:: Hypertension, Cancer, Stroke Para: 1 Review of Systems - Review of Systems Review of systems:: pertinent systems reviewed and negative unless documented below Meds Home Medications Medication Instructions Recorded Confirmed Type prenat.vits,marisol,[id number] 1 tab PO DAILY 12/06/20 06/29/21 History RX: Ferrous Sulfate 325 mg PO DAILY 06/29/21 06/29/21 History Allergies Allergy/AdvReac Type Severity Reaction Status Date / Time No Known Allergies Allergy Verified 06/28/21 09:47 OB - H&P: Exam - Physical Exam Vital signs: Temp Pulse Resp BP Pulse Ox 97.9 F 100 H 18 109/79 L 97 06/29/21 05:25 06/29/21 05:25 06/29/21 05:25 06/29/21 05:25 06/29/21 05:25 - Constitutional no acute distress - Routine HEENT Exam Head: Present: normocephalic Eye: Present: EOMI, PERRL ENT: Present: mucous membranes moist - Routine Neck Exam Present: supple, full ROM - Routine Respiratory Exam Absent: accessory muscle use (good air entry bilaterally), respiratory distress, wheezes, crackles - Routine Cardiovascular Exam Present: RRR. Absent: murmur - Routine Abdominal Exam Present: soft, normoactive bowel sounds. Absent: tenderness, distended, guarding - Routine Rectal Exam Patient deferred: visual exam, digital exam - Routine Exam Patient deferred: external exam, groin exam, perineal exam - Routine Extremities Exam Present: full ROM. Absent: cyanosis, edema - Routine Skin Exam Present: intact. Absent: cyanosis - Routine Neurological Exam Present: alert, oriented X3 - Routine Psychiatric Exam Present: normal affect OB - Results - Labs Labs: Urine 06/29/21 Range/Units 04:45 Urine Color Yellow (Yellow) Urine Appearance Cloudy (Clear) Urine pH 6.0 (5.0-8.5) Ur Specific [place] 1.020 (1.005-1.030) Urine Protein Negative (Negative) Urine Glucose (UA) Negative (Negative) OB - A/P Antepartum (1) Previous section complicating Status: Acute (2) Delivery by section of full-term Status: Acute (3) Encounter for female sterilization procedure Status: Acute - Additional Plan Planning to breastfeed?: Yes Plan: other Additional Information:: She is admitted for repeat lower segment transverse section and bilateral salpingectomy.
--- NOTE | 2021-06-29 08:38 | P.PN_ITS ---
[facility] Anesthesia Checklist - Patient Identification Patient Identification: Arm Band, Verbal (Name & ) - Structural Data Admitted From: Inpatient Planned Operative Procedure/s: c section Consent for Planned Operative Procedure(s) Verified: Yes Verified Documents: History and Physical - Chart Verification Results Verified: CBC, BMP - Additional verifications Patient : Yes Anesthesia Reactions: No Hx Blood Transfusions: No Blood Transfusion Reaction: No Cephalosporin Allergy: No Previous Colonoscopy: No - Cardiovascular Assessment Heart Sounds: S1 & S2 Pulse Strength: Baseline Pulse Rhythm: Regular Peripheral Edema: No - Airway Assessment C-Spine Mobility Assessed: Yes TMJ Mobility Assessed: Yes Dentition: Good Dentition - Neurological Assessment Level of Consciousness: Awake, Alert, Appropriate Hx Seizures: No Numbness or tingling in extremities: No - Anesthesia Plan Anesthesia Risk discussed: Yes Anesthesia Plan: Verified ASA Class: II Anesthesia Type: Spinal [facility] History I have reviewed the patient's past medical history: Yes 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: Denies:: Cancer, Diabetes Mellitus Type 1, Diabetes Mellitus Type 2, MRSA *Have you ever received a pneumonia vaccine?: No *Have you received a flu vaccine this season?: No Other 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: Reports: Other Anesthesia experience/problems:: none Laterality Cases: Bilateral: Tonsillectomy, Other Other Surgeries: Yes: No Previous Surgery, Amputation: No Fractures: No - *Social History Smoking Status: Never smoker Alcohol Intake: never Alcohol Intake Frequency:: other Substance Use Type: denies use *Occupational Status:: employed Housing: house Household Members: spouse, children *Travel in the last 8 weeks: None Family Hx:: Hypertension, Cancer, Stroke Para: 1
--- NOTE | 2021-06-29 08:39 | P.PN_ITS ---
[facility] Anesthesia Record Part I Intake, IV Amount: 2,000 Estimated blood loss (mL): 600 Urine output (mL): 100 Blood Products used (#): none Blood Pressure: 117/72 SaO2: 97 Pulse Rate: 90 Respiratory Rate: 20 Temperature: 97.0 F Patient is:: Awake, Stable Stable to PACU at:: 08:35
--- NOTE | 2021-06-29 09:09 | P.CONPHA_ITS ---
[facility] Pharmacy VTE Monitoring - Patient Demographics Admission date: 06/29/21 Report Date: 06/29/21 Time: 09:09 Allergies/Adverse Reactions: Patient Allergies No Known Allergies Allergy (Verified 06/28/21 09:47) Height: 1.75 m Weight: 98.43 kg Patient Problems: Current Active Problems Previous section complicating (Acute) Delivery by section of full-term (Acute) Encounter for female sterilization procedure (Acute) - Prophylaxis VTE Prophylaxis Ordered?: Yes Types of VTE Prophylaxis: IPCS Thigh High Location of Applied Device: Bilateral Lower Extremeties
[2021-06-29 10:31] LABS: Microscopic,Cath URINE MICROSCOPIC (MICROSCOPIC)
[2021-06-29 10:47] LABS: Appearance,Urine/Cath CLEAR (Clear); Bilirubin,Cath Negative (Negative); Blood, Urine/Cath Negative (Negative); Color,Urine/Cath YELLOW (Yellow); Glucose,Urine/Cath (UA) Negative (Negative); Ketones,Urine/Cath Negative (Negative); Leukocyte Esterase,Cath Negative (Negative); Nitrate,Cath Negative (Negative); PH,Urine/Cath 6.5 (5.0-8.5); Protein,Urine/Cath Negative (Negative); Urobilinogen,Cath 0.2 EU/dl (0.2)
[2021-06-30 00:57] VITALS: BP 91/55; PULSE 59; RESP 17; TEMP 36.6; O2SAT 98
[2021-06-30 04:56] VITALS: BP 97/53; PULSE 64; RESP 17; TEMP 36.7; O2SAT 99
[2021-06-30 06:09] LABS: Hematocrit 32.7 % (37.0-47.0); Hemoglobin 10.9 g/dL (12.2-16.2)
--- NOTE | 2021-06-30 10:23 | P.PN_ITS ---
Internal Medicine - PN: Subj *Date: 06/30/21 *Time: 10:23 Interval history: She is doing very well this morning. Her pain is well controlled. She is bottlefeeding. Her lochia is normal. Exam Vital signs and Labs for Last 24 Hours: Temp Pulse Resp BP Pulse Ox 98.1 F 64 17 97/53 L 99 06/30/21 04:56 06/30/21 04:56 06/30/21 04:56 06/30/21 04:56 06/30/21 04:56 Laboratory Results - last 24 hr 06/29/21 07:40: Urine Color Yellow, Urine Appearance Clear, Urine pH 6.5, Ur Specific [place] 1.020, Urine Protein Negative, Urine Glucose (UA) Negative, Urine Ketones Negative, Urine Blood Negative, Urine Nitrate Negative, Urine Bilirubin Negative, Urine Urobilinogen 0.2, Ur Leukocyte Esterase Negative, Urine WBC 3-5, Ur Squamous Epith Cells 5-10 06/30/21 05:57: Screen Negative, Baby's Rh Status Positive, Rhogam Infusion Rhogam release 06/30/21 05:57: Hgb 10.9 L, Hct 32.7 L I & O for Last 24 hours: Intake & Output 06/27/21 06/28/21 06/29/21 06/30/21 11:59 11:59 11:59 11:59 Intake Total 1999 Balance 1999 Weight 217 lb 0.016 oz Microbiology Reports for the Last 24 Hours: Microbiology 06/29/21 04:45 Urine,Clean Catch Urine Culture - Preliminary - Constitutional no acute distress - *Routine HEENT Exam Head: Present: normocephalic Eye: Present: EOMI, PERRL ENT: Present: mucous membranes moist Assessment and Plan (1) Previous section complicating Status: Acute Category: Surgical Code(s): O34.219 - Maternal care for unspecified type scar from previous delivery (2) Delivery by section of full-term infant Status: Acute Category: Medical Code(s): O82 - Encounter for delivery without indication (3) Encounter for female sterilization procedure Status: Acute Category: Medical Code(s): Z30.2 - Encounter for sterilization - Assessment and plan all Dx Assessment and Plan for all problems:: She is doing very well. We will plan to send her home tomorrow.
--- NOTE | 2021-07-01 10:10 | HMH.OBDCSM ---
General - General Admission date:: 06/29/21 Discharge date: 07/01/21 HPI - History of Present Illness History of present illness: She is a 21-year-old 3 now para 2 aborta 1 who was 39+ weeks gestational age. She has had a previous section and as result of that was offered repeat lower segment transverse section at term. She also expressed desire for sterilization. Hospital Course Hospital Course: On June 29, 2021 she underwent a repeat lower segment transverse section and bilateral salpingectomy. She delivered a liveborn male child at 7:51 AM. Baby had Apgars of 9 at 1 minute and 9 at 5 minutes. pH was 7.38. She has done very well postoperatively and has remained afebrile throughout her hospitalization. She is eating and drinking and ambulating. She is bottlefeeding. Her lochia is normal. She has a Rh- blood and has received RhoGam. She is rubella immune and was group B streptococcus negative. She did receive a tap block post surgery. She is discharged home to follow-up with me in approximately 2 weeks time. She will continue with her vitamins and iron. She was given a prescription for Percocet 5/325 # 6 tablets. She will continue with Motrin and Tylenol. She was given the usual instructions with respect to limiting her activity, driving and sexual activity. She was given instructions with respect to wound care. Her condition on discharge is stable and improved. Her records coordinator is Dr. Wiseman. Rhogam Administration: Given Objective Vital signs: Temp Pulse Resp BP Pulse Ox 98.1 F 64 17 97/53 L 99 06/30/21 04:56 06/30/21 04:56 06/30/21 04:56 06/30/21 04:56 06/30/21 04:56 no acute distress - *Routine HEENT Exam Head: Present: normocephalic Eye: Present: EOMI, PERRL ENT: Present: mucous membranes moist Results Labs on day of discharge: Preliminary micro results at discharge 06/29/21 04:45 Urine Culture - Preliminary Urine,Clean Catch DS: Diagnosis - Discharge Diagnosis (1) Previous section complicating Status: Acute (2) Delivery by section of full-term Status: Acute (3) Encounter for female sterilization procedure Status: Acute Discharge Plan - Patient Discharge Instructions ACTIVITY: No heavy lifting DIET: continue same diet Additional Instructions: *Nothing in the Vagina for 6 weeks* *No strenuous activity* *No heavy lifting* Patient Instructions: Depression, Hemorrhage, DI for , DI for Pre-eclampsia, [facility] Post Discharge Instructions, Preventing the Spread of Coronavirus Discharge Instructions - Follow up Plan Follow up with: Jeanmarie Panda MD [Staff Physician] - 07/13/21 11:00 am Disposition: Home, Self-Care Condition at discharge:: Stable Home Medications: Home Medications Medication Instructions Recorded Confirmed Type prenat.vits,marisol,[id number] 1 tab PO DAILY 12/06/20 06/29/21 History Ferrous Sulfate 325 mg PO DAILY 06/29/21 06/29/21 History Oxycodone HCl/Acetaminophen 1 tab PO Q4-6H PRN #6 tablet 07/01/21 Rx [Percocet 5/325mg tablet] Prescriptions/Medication Reconciliation: New Oxycodone HCl/Acetaminophen [Percocet 5/325mg tablet] 1 tab PO Q4-6H PRN #6 tablet PRN Reason: Severe Pain Continued prenat.vits,marisol,[id number] 1 tab PO DAILY Ferrous Sulfate 325 mg PO DAILY - Problem Reconciliation Problems Reviewed?: Yes
[2021-07-01 10:57] VITALS: BP 120/77; PULSE 68; TEMP 36.1
--- NOTE | 2021-07-01 10:57 | P.PN_ITS ---
[facility] Anesthesia Record Part II Discharge Time: 08:45 Destination: Obstetric Gynecology Dept PACU nurse assessment reviewed?: Yes Patient Condition:: Good Anesthesia Complications:: None Swallowing reflex intact?: Yes Cyanosis?: No Blood Pressure: 120/77 Pulse Rate: 68 Temperature: 97.0 F Mental Status: Alert & Oriented Pain level:: 0 Nausea and/or vomitting:: None Intake, IV Amount: 100
== END 2021-07-01 14:10 | disposition home or self-care (01) | DRG 785 ==
PROVIDERS: Admitting Provider Nurse Practitioner Obstetrics & Gynecology; PCP Family Medicine; Visit Provider Nurse Practitioner Obstetrics & Gynecology
PROC: (CPT 59514; principal; 2021-06-29 07:30)
DX: O34.211 Maternal care for low transverse scar from previous cesarean delivery (principal); Z3A.39 39 weeks gestation of pregnancy; Z37.0 Single live birth; Z23 Encounter for immunization; N85.8 Other specified noninflammatory disorders of uterus
CPT/HCPCS: 59514; 58700; 96372; 90384; 36415; 59025; 80305; 81001; 82800; 85014; 85018; 85461; 86850; 87086; C9290; J2405; J2790

== ENCOUNTER 2021-08-13 07:58 | Emergency (ER) | payer BC, SELFPAY ==
[2021-08-13 07:59] VITALS: BP 129/78; PULSE 61; RESP 18; TEMP 36.4; O2SAT 100; BMI 28.8
[2021-08-13 08:05] VITALS: BP 129/78; PULSE 72; RESP 16; O2SAT 98
--- NOTE | 2021-08-13 08:08 | US_ITS ---
PROCEDURE: US GALLBLADDER CLINICAL INDICATION: pain COMPARISON: No exams were available for comparison FINDINGS: Pancreas: Unremarkable/Not well seen Liver: Unremarkable. There is appropriate direction of blood flow within a non dilated portal vein. Right kidney: Unremarkable appearing. No hydronephrosis. Gallbladder: Gallbladder is contracted with mild gallbladder wall thickening. No stones, pericholecystic fluid, or biliary dilatation is evident. Common bile duct is 2 mm. IMPRESSION: Contracted gallbladder with mildly thickened wall otherwise negative Dictated by: Benny Byrnes MD 08/13/2021 10:33 Benny Byrnes MD in [facility] 08/13/2021 10:33
[2021-08-13 08:21] LABS: Microscopic, Urine URINE MICROSCOPIC (MICROSCOPIC)
[2021-08-13 08:24] LABS: Appearance,Urine CLEAR (Clear); Bilirubin,Urine Negative (Negative); Blood, Urine 3+ (Negative); Color,Urine YELLOW (Yellow); Glucose,Urine (UA) Negative (Negative); Ketones,Urine TRACE (Negative); Leukocyte Esterase,Urine Negative (Negative); Nitrate,Urine Negative (Negative); Protein,Urine Negative (Negative); Specific Gravity, Urine >= 1.030 (1.005-1.030); Urobilinogen,Urine 0.2 EU/dl (0.2)
[2021-08-13 08:25] LABS: Basophils # 0.2 K/mm3 (0-0.2); Basophils % 1.4 % (0.1-2.0); Eosinophils # 0.4 K/mm3 (0.0-0.4); Eosinophils % 3.8 % (0.1-12.0); Hematocrit 42.4 % (37.0-47.0); Hemoglobin 13.7 g/dL (12.2-16.2); Lymphocytes # 3.7 K/mm3 (0.7-4.5); Lymphocytes % 34.8 % (10-50); Mean Corpuscular HGB Conc 32.4 g/dL (31.8-35.4); Mean Corpuscular Hemoglobin 27.9 pg (27.0-31.2); Mean Corpuscular Volume 85.9 fl (81-99); Mean Platelet Volume 7.5 fl (7.4-10.4); Monocytes # 0.4 K/mm3 (0.1-1.0); Monocytes % 4.1 % (1.7-9.3); Neutrophils # 5.9 K/mm3 (1.8-7.8); Neutrophils % 55.9 % (37.0-80.0); Platelet Count 345 K/mm3 (142-424); Red Blood Count 4.93 M/mm3 (4.20-5.40); Red Cell Distribution Width 12.4 % (11.5-17.5); Urine Pregnancy, HCG Qual. Negative (Negative); White Blood Count 10.6 K/mm3 (4.8-10.8)
[2021-08-13 08:28] LABS: Chloride 104 mmol/L (98-107); Potassium 4.1 mmoL/L (3.5-5.1); Sodium 141 mmol/L (136-145)
[2021-08-13 08:31] LABS: Alanine Aminotransferase 16 U/L (12-78); Albumin/Globulin Ratio 1.2 (1.1-1.8); Alkaline Phosphatase 88 U/L (38-126); Anion Gap 12.1 mEq/L (5-15); Aspartate Amino Transferase 23 U/L (14-36); Bilirubin,Total 0.3 mg/dl (0.2-1.3); Blood Urea Nitrogen 9 mg/dl (7-17); Calcium 9.3 mg/dl (8.4-10.2); Carbon Dioxide 29 mmol/L (22.0-30.0); Estimated Glomerular Filt Rate 104 ml/min (>60); GFR (African American) 125 ML/MIN (>60); Globulin 3.3 g/dL (1.3-3.2); Glucose 91 mg/dl (74-100); Lipase 59 U/L (23-300); Total Protein,Serum 7.3 g/dl (6.3-8.2)
[2021-08-13 08:36] VITALS: BP 100/54; PULSE 61; O2SAT 98
[2021-08-13 08:41] LABS: Bacteria,Urine Trace /lpf; Mucus,Urine Trace /lpf; Squamous Epithelial Cell,Urine Occasional #/hpf (0-5)
--- NOTE | 2021-08-13 08:41 | PC.NURSE ---
pt going to ultra sound
--- NOTE | 2021-08-13 08:42 | HMH.EDGENADL ---
ED Disposition Clinical Impression: Abdominal pain Qualifiers: Abdominal location: right upper quadrant Qualified Code(s): R10.11 - Right upper quadrant pain Disposition: Home, Self-Care Condition on Discharge: Good Additional Instructions: Stay well-hydrated. [id number] medication as needed for aches and pains. Follow-up with your PCP for further evaluation. Return the emergency part for fever, worsening pain, nausea with vomiting. Referrals: Leander Vasquez MD [Primary Care Provider] - 3 days Time of Disposition: 10:28 - Critical Care Critical Care Time: No Attestation: On 08/13/21, the high probability of a clinically significant, sudden or life threatening deterioration of the following system(s) required my full and direct attention, intervention and personal management. The time I documented below is in addition to time spent performing reported procedures but includes the following listed in this critical care notation. Medical Decision Making - Medical Records Medical records reviewed: Yes: I reviewed the patient's medical records. - Julio Inquiry Pt receiving controlled substance: No Vital Signs: 08/13/21 07:59 08/13/21 08:05 08/13/21 08:36 Temperature 97.6 F Temperature Source Oral Pulse Rate 72 61 Pulse Rate [Left Radial] 61 Respiratory Rate 18 16 Blood Pressure 129/78 100/54 L Blood Pressure [Right Arm] 129/78 Blood Pressure Mean 89 71 Blood Pressure Mean [Right Arm] 95 Blood Pressure Source [Right Arm] Automatic Cuff Blood Pressure Position [Right Arm] Sitting 02 Sat by Pulse Oximetry 100 98 98 Oxygen Delivery Method Room Air 08/13/21 09:12 Temperature Temperature Source Pulse Rate 77 Pulse Rate [Left Radial] Respiratory Rate 18 Blood Pressure 96/54 L Blood Pressure [Right Arm] Blood Pressure Mean 65 Blood Pressure Mean [Right Arm] Blood Pressure Source [Right Arm] Blood Pressure Position [Right Arm] 02 Sat by Pulse Oximetry 98 Oxygen Delivery Method - Lab Data Lab results reviewed: Yes: I reviewed the patient's lab results. Lab Results 08/13/21 08:10: Urine Color Yellow, Urine Appearance Clear, Urine pH 6.0, Ur Specific [place] >= 1.030, Urine Protein Negative, Urine Glucose (UA) Negative, Urine Ketones Trace, Urine Blood 3+, Urine Nitrate Negative, Urine Bilirubin Negative, Urine Urobilinogen 0.2, Ur Leukocyte Esterase Negative, Urine RBC 5-10, Urine WBC None, Ur Squamous Epith Cells Occasional, Urine Bacteria Trace, Urine Mucus Trace 08/13/21 08:10: WBC 10.6, RBC 4.93, Hgb 13.7, Hct 42.4, MCV 85.9, MCH 27.9, MCHC 32.4, RDW 12.4, Plt Count 345, MPV 7.5, Neut % (Auto) 55.9, Lymph % (Auto) 34.8, [place] % (Auto) 4.1, Eos % (Auto) 3.8, Baso % (Auto) 1.4, Neut # (Auto) 5.9, Lymph # (Auto) 3.7, [place] # (Auto) 0.4, Eos # (Auto) 0.4, Baso # (Auto) 0.2 08/13/21 08:10: Urine HCG, Qual Negative 08/13/21 08:10: Sodium 141, Potassium 4.1, Chloride 104, Carbon Dioxide 29, Anion Gap 12.1, BUN 9, Creatinine 0.70, Estimated GFR 104, Est GFR ( Amer) 125, Glucose 91, Calcium 9.3, Total Bilirubin 0.3, AST 23, ALT 16, Alkaline Phosphatase 88, Total Protein 7.3, Albumin 4.0, Globulin 3.3 H, Albumin/Globulin Ratio 1.2, Lipase 59 Result diagrams: 08/13/21 08:10 08/13/21 08:10 Orders (Tests/Meds): ED MEDICATIONS Discontinued Medications Generic Name Dose Route Start Last Admin Trade Name Freq PRN Reason Stop Dose Admin Lactated Ringer's 1,000 mls @ 999 mls/hr 08/13/21 08:15 08/13/21 08:33 Lactated Ringer's 1000 Ml Bag IV 08/13/21 09:15 999 mls/hr .Q1H1M ANTIONETTE Administration Ketorolac Tromethamine 15 mg 08/13/21 08:08 08/13/21 08:33 Ketorolac 30mg/Ml Vial IV 08/13/21 08:09 15 mg ONCE ONE Administration Ondansetron HCl 4 mg 08/13/21 09:12 08/13/21 09:18 Ondansetron 4mg/2ml Vial IV 08/13/21 09:13 4 mg ONCE ONE Administration ORDERS Category Date Time Status US gallbladder Stat Exams 08/13/21 08:08 Taken Medi
--- NOTE | 2021-08-13 09:11 | CT_ITS ---
PROCEDURE: CT ABDOMEN PELVIS W CON CLINICAL INDICATION: pain, RUQ> COMPARISON: CT ABDPELWO CT abdomen pelvis wo con from 12/23/2018 TECHNIQUE: IV Contrast: 75ML Isovue 370 Oral Contrast None Axial images obtained with sagittal and coronal reformats. All CT scans at the facility use one or more dose reduction, viz: automated exposure control, ma/kV adjustment per patient size (including targeted exams where dose is matched to indication, i.e. head), or iterative reconstruction technique. FINDINGS: LOWER THORAX: No acute finding ABDOMEN & PELVIS: Liver, spleen, pancreas and adrenal glands have an unremarkable appearance. There is minimal ectasia of the right ureter. This could be due to patient's hydration status/peristalsis or recently passed stone. No bladder stones are evident. The gallbladder with a minimally thickened wall which may be due to the contracted state. No renal or ureteral calculi. No intestinal obstruction or free air. No evidence of appendicitis. There is a tiny umbilical hernia containing fat. No pelvic mass or abnormal fluid collection apparent. Air density is present in the vaginal region consistent with a tampon. Multiple unopacified bowel loops in the abdomen or pelvis which could obscure or mimic pathology. If symptoms persist, consider repeat exam with IV and oral contrast. No acute bony findings. IMPRESSION: No acute finding. Dictated by: Benny Byrnes MD 08/13/2021 10:08 Benny Byrnes MD in [facility] 08/13/2021 10:08
[2021-08-13 09:12] VITALS: BP 96/54; PULSE 77; RESP 18; O2SAT 98
--- NOTE | 2021-08-13 09:25 | PC.NURSE ---
pt to radiology
[2021-08-13 10:49] VITALS: BP 96/54; PULSE 77; RESP 18; TEMP 36.4; O2SAT 98
== END 2021-08-13 10:50 | disposition home or self-care (01) ==
PROVIDERS: Emergency Provider Family Medicine; PCP Family Medicine
DX: R10.11 Right upper quadrant pain (principal)
CPT/HCPCS: 74177; 76705; 80053; 81001; 81025; 83690; 85025; 96365; 96375; 99283; J2405

== ENCOUNTER → 2021-09-27 10:23 | Outpatient (CLI) | payer BC, SELFPAY ==
--- NOTE | 2021-09-27 10:23 | NM_ITS ---
PROCEDURE: NM HEPATOBILIARY W PHARM CLINICAL INDICATION: RUQ pain COMPARISON: No exams were available for comparison TECHNIQUE: DOSE: 8.03 mCi technetium Choletec. Ensure was utilized for fatty meal FINDINGS: Homogeneous activity is present within the hepatic parenchyma. Activity is present in the gallbladder by 5 minutes. Activity is present in the small bowel by 45 minutes. The gallbladder ejection fraction is calculated to be 42 percent, within normal limits. No pain after fatty meal IMPRESSION: No evidence of common or cystic duct obstruction. Gallbladder ejection fraction within normal limits. Dictated by: Benny Byrnes MD 09/27/2021 17:33 Benny Byrnes MD in [facility] 09/27/2021 17:33
== END ==
PROVIDERS: PCP Family Medicine; Visit Provider Surgery
DX: R10.11 Right upper quadrant pain (principal)
CPT/HCPCS: 78227; A9537

== ENCOUNTER → 2021-10-22 13:19 | Outpatient (CLI) | payer BC, SELFPAY ==
[2021-10-22 15:43] LABS: Urine Pregnancy, HCG Qual. Negative (Negative)
== END ==
PROVIDERS: Visit Provider Surgery
DX: Z01.812 Encounter for preprocedural laboratory examination (principal); Z11.52 Encounter for screening for COVID-19; Z13.810 Encounter for screening for upper gastrointestinal disorder
CPT/HCPCS: 81025; C9803; U0003; U0005

== ENCOUNTER 2021-10-24 12:00 | Day surgery (SDC) | payer BC, SELFPAY ==
[2021-10-19 14:28] VITALS: BMI 28.0
[2021-10-24] VITALS (7 sets, daily range): BP systolic 86–115; BP diastolic 41–66; PULSE 80–110; RESP 14–18; TEMP 36.7; O2SAT 94–100
--- NOTE | 2021-10-24 11:32 | P.PN_ITS ---
[facility] Anesthesia Checklist - Patient Identification Patient Identification: Arm Band - Structural Data Admitted From: Home Planned Operative Procedure/s: EGD Consent for Planned Operative Procedure(s) Verified: Yes - NPO Status Verified Time NPO: 00:00 - Additional verifications Anesthesia Reactions: No Hx Blood Transfusions: No Blood Transfusion Reaction: No - Airway Assessment C-Spine Mobility Assessed: Yes TMJ Mobility Assessed: Yes Dentition: Good Dentition - Neurological Assessment Level of Consciousness: Awake Hx Seizures: No Numbness or tingling in extremities: No - Anesthesia Plan Anesthesia Risk discussed: Yes Anesthesia Plan: Verified ASA Class: I Anesthesia Type: MAC [facility] History I have reviewed the patient's past medical history: Yes 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: Denies:: Cancer, Diabetes Mellitus Type 1, Diabetes Mellitus Type 2, Internal Pacemaker, MRSA, Seizures *Have you ever received a pneumonia vaccine?: No *Have you received a flu vaccine this season?: No Other 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: Reports: Other. Denies: Blood Transfusion Reaction Anesthesia experience/problems:: None Laterality Cases: Bilateral: Tonsillectomy, Other Other Surgeries: Yes: No Previous Surgery, . No: Pacemaker Amputation: No Fractures: No - *Social History Last grade of school completed: High school graduate Smoking Status: Never smoker Alcohol Intake: former Alcohol Intake Frequency:: other Substance Use Type: denies use *Occupational Status:: unemployed Housing: house Household Members: spouse, children *Travel in the last 8 weeks: None Family Hx:: Cancer, Diabetes, Heart Attack, Stroke, Thyroid Disorder, Other
--- NOTE | 2021-10-24 12:50 | P.PCN_ITS ---
- Procedure: Date: 10/24/21 Patient Date of :: 2000 Procedure Performed:: Esophago-gastroduodenoscopy with biopsies Indications:: Patient presents for EGD. She is a pleasant 21-year-old female originally referred by Natali Lobo for gallbladder. Patient did have some right mid abdominal pain about 2 years ago and underwent work-up including gallbladder ultrasound and HIDA scan which were normal. She is 2 months from C- section delivery. She states that she has had postprandial right upper quadrant pain for this time. She describes associated nausea and vomiting. She states that this occurs with any food intake. She was seen in the emergency department on 08/13/2021. She had a CT scan which was unremarkable. She underwent gallbladder ultrasound which was relatively unremarkable revealing no gallstones, contracted gallbladder, but she did have some possible minor gallbladder wall thickening. She was sent for surgical consultation. Given the relatively unremarkable gallbladder ultrasound she underwent HIDA scan. This reveals ejection fraction of 42%. She describes ongoing symptoms with abdominal pain and nausea with any intake including even John-Aid. She can tolerate water. Plan was made to proceed with upper endoscopy given the equivocal gallbladder evaluation. Patient stated morning of her planned procedure she is developed symptoms of postprandial loose stools. Performing Provider:: Stephen Curry MD Referring Provider:: Natali Lobo Sedation:: MAC sedation Procedure:: Patient was taken to endoscopy procedure room. She was positioned in lateral decubitus position. Adequate intravenous sedation was achieved with anesthesia titration of propofol. Olympus endoscope was inserted via the oropharynx. Esophagus appeared normal. Gastroesophageal junction was encountered at approximately 38 cm from the incisors. Stomach was cannulated and insufflated. Retroflexion revealed a small sliding hiatal hernia. She had some diffuse gastropathy. Gastric antral mucosal biopsy was obtained for CLOtest for H. pylori. Pylorus was traversed. Duodenal bulb and duodenal sweep appeared unremarkable. However, couple biopsies were obtained to evaluate for microscopic disease. Endoscope was withdrawn into the stomach. A couple of gastric mucosal biopsies obtained for histopathologic analysis. A couple biopsies were obtained at the gastroesophageal junction. Stomach was desufflated and scope was withdrawn. Findings:: Gastroesophageal junction at 38 cm from the incisors Small sliding hiatal hernia Diffuse mild gastropathy Recommendations:: Plan to follow-up on the biopsy results. Treat H. pylori if positive. If biopsies are unremarkable and symptoms persist may consider counseling regarding gallbladder surgery. Complications:: None immediate Estimated blood obtained (mL): 3
== END 2021-10-24 14:00 | disposition home or self-care (01) ==
LOC: OUTP 12:01
PROVIDERS: PCP Family Medicine; Visit Provider Surgery
PROC: 0DJ08ZZ Inspection of Upper Intestinal Tract, Via Natural or Artificial Opening Endoscopic (ICD-10-PCS; CPT 43235; principal; 2021-10-24 15:00)
DX: K31.9 Disease of stomach and duodenum, unspecified (principal); K44.9 Diaphragmatic hernia without obstruction or gangrene; Z80.9 Family history of malignant neoplasm, unspecified; Z83.3 Family history of diabetes mellitus; Z82.3 Family history of stroke; Z83.49 Family history of other endocrine, nutritional and metabolic diseases
CPT/HCPCS: 43239; 87339

== ENCOUNTER → 2021-11-13 21:08 | Outpatient (CLI) | payer BC, SELFPAY | PROVIDERS: PCP Family Medicine; Visit Provider Nurse Practitioner | DX: U07.1 COVID-19 (principal) | CPT/HCPCS: C9803; U0003; U0005 ==

== ENCOUNTER → 2021-12-28 14:38 | Outpatient (CLI) | payer BC, SELFPAY ==
[2021-12-30 16:10] LABS: H. pylori Breath Test Negative (Negative)
== END ==
PROVIDERS: Visit Provider Surgery
DX: R10.11 Right upper quadrant pain (principal)
CPT/HCPCS: 83013

== ENCOUNTER → 2022-03-16 10:58 | Outpatient (CLI) | payer BC, SELFPAY ==
[2022-03-16 11:02] LABS: MANUAL DIFFERENTIAL MANUAL DIFFERENTIAL (MANUAL DIFF)
[2022-03-16 11:24] LABS: Basophils # 0.2 K/mm3 (0-0.2); Basophils % 2.4 % (0.1-2.0); Eosinophils # 0.1 K/mm3 (0.0-0.4); Eosinophils % 1.2 % (0.1-12.0); Hematocrit 41.8 % (37.0-47.0); Hemoglobin 13.9 g/dL (12.2-16.2); Lymphocytes # 2.5 K/mm3 (0.7-4.5); Lymphocytes % 30.8 % (10-50); Mean Corpuscular HGB Conc 33.3 g/dL (31.8-35.4); Mean Corpuscular Hemoglobin 27.1 pg (27.0-31.2); Mean Corpuscular Volume 81.5 fl (81-99); Mean Platelet Volume 7.6 fl (7.4-10.4); Monocytes # 0.4 K/mm3 (0.1-1.0); Monocytes % 4.6 % (1.7-9.3); Neutrophils # 4.8 K/mm3 (1.8-7.8); Neutrophils % 60.9 % (37.0-80.0); Platelet Count 312 K/mm3 (142-424); Red Blood Count 5.13 M/mm3 (4.20-5.40)
[2022-03-16 11:26] LABS: Urine Pregnancy, HCG Qual. Negative (Negative)
[2022-03-16 12:06] LABS: Chloride 105 mmol/L (98-107); Potassium 3.9 mmoL/L (3.5-5.1); Sodium 141 mmol/L (136-145)
[2022-03-16 12:08] LABS: Blood Urea Nitrogen 8 mg/dl (7-17); Estimated Glomerular Filt Rate 104 ml/min (>60); GFR (African American) 125 ML/MIN (>60)
[2022-03-16 12:09] LABS: Alanine Aminotransferase 15 U/L (12-78); Albumin Level 4.3 g/dl (3.5-5.0); Albumin/Globulin Ratio 1.4 (1.1-1.8); Alkaline Phosphatase 98 U/L (38-126); Anion Gap 10.9 mEq/L (5-15); Aspartate Amino Transferase 22 U/L (14-36); Bilirubin,Total 0.8 mg/dl (0.2-1.3); Calcium 9.7 mg/dl (8.4-10.2); Carbon Dioxide 29 mmol/L (22.0-30.0); Glucose 104 mg/dl (74-100); Total Protein,Serum 7.3 g/dl (6.3-8.2)
[2022-03-16 17:27] LABS: Lymphocytes % 38 % (10-50); Monocytes % 6 % (2-9); Neutrophils % 56 % (42-76); Platelet Estimate Normal; Total Cells Counted 100
== END ==
PROVIDERS: Visit Provider Surgery
DX: Z01.812 Encounter for preprocedural laboratory examination (principal); Z11.52 Encounter for screening for COVID-19; K82.9 Disease of gallbladder, unspecified
CPT/HCPCS: 36415; 80053; 81025; 85007; 85014; 85018; 85048; 85049; C9803; U0003; U0005

== ENCOUNTER 2022-03-18 06:01 | Day surgery (SDC) | payer BC, SELFPAY ==
[2022-03-14 12:12] VITALS: BMI 28.3
[2022-03-18] VITALS (11 sets, daily range): BP systolic 92–125; BP diastolic 53–72; PULSE 63–87; RESP 16–18; TEMP 36.6–38; O2SAT 96–99
--- NOTE | 2022-03-18 06:52 | P.PN_ITS ---
[facility] Anesthesia Checklist - Patient Identification Patient Identification: Arm Band - Structural Data Admitted From: Home Planned Operative Procedure/s: BinhAmberly toure Consent for Planned Operative Procedure(s) Verified: Yes - NPO Status Verified Time NPO: 00:00 - Additional verifications Anesthesia Reactions: No Hx Blood Transfusions: No Blood Transfusion Reaction: No - Airway Assessment C-Spine Mobility Assessed: Yes TMJ Mobility Assessed: Yes Dentition: Good Dentition - Neurological Assessment Level of Consciousness: Awake Hx Seizures: No Numbness or tingling in extremities: No - Anesthesia Plan Anesthesia Risk discussed: Yes Anesthesia Plan: Verified ASA Class: I Anesthesia Type: General [facility] History I have reviewed the patient's past medical history: Yes 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: Denies:: Cancer, Diabetes Mellitus Type 1, Diabetes Mellitus Type 2, Internal Pacemaker, MRSA, Seizures *Have you ever received a pneumonia vaccine?: No *Have you received a flu vaccine this season?: No Other 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: Reports: Other. Denies: Blood Transfusion Reaction Anesthesia experience/problems:: None Laterality Cases: Bilateral: Tonsillectomy, Other Other Surgeries: Yes: No Previous Surgery, . No: Pacemaker Amputation: No Fractures: No - *Social History Last grade of school completed: High school graduate Smoking Status: Never smoker Alcohol Intake: never Alcohol Intake Frequency:: other Substance Use Type: denies use *Occupational Status:: unemployed Housing: house Household Members: spouse *Travel in the last 8 weeks: None Family Hx:: Cancer, Diabetes, Heart Attack, Hypertension, Mental illness
--- NOTE | 2022-03-18 08:07 | HMH.OPNOTE ---
Date of procedure: 03/18/22 Pre-op Diagnosis:: Right upper quadrant pain, gallbladder disease Post-op Diagnosis:: Same Procedure performed:: Laparoscopic cholecystectomy Surgeon:: Stephen Curry MD CAVITY PUMP OPERATOR:: Jeovany Amato Anesthesia: GETA Estimated blood loss (mL): 5 Clinical Note:: Patient presents for cholecystectomy. She was recently seen in the office for follow-up of recurrent abdominal pain. She is a 21-year-old female whom I had initially seen in August 2021 as a referral from Natali Lobo for possible gallbladder. Patient had undergone by Dr. Panda on 06/29/2021. She states that about 2 years ago she had some right sided abdominal pain and underwent gallbladder work-up including ultrasound and HIDA scan which were unremarkable. Prior to presentation in August she had developed some right upper quadrant pain with associated nausea and vomiting. This had occurred with any food intake. She had been seen in the emergency department on 08/13/[address] scan which was unremarkable. She underwent gallbladder ultrasound which revealed no gallstones but she had a contracted gallbladder and some minor gallbladder wall thickening. I did have the patient undergo a HIDA scan which was borderline revealing ejection fraction of 42%. Due to the borderline gallbladder work-up I had performed EGD on 10/24/2021. This was relatively unremarkable on gross appearance but biopsies did reveal H. pylori gastritis, chronic active gastritis, and mild reflux esophagitis. She underwent H. pylori eradication therapy. She did have a follow-up urease breath test which was negative. She states that she did well for some time but has had recurrent symptoms. She has had quite significant symptoms of postprandial nausea, vomiting, and right upper quadrant pain. She states that she is unable to eat or drink much of anything. I spent some time with the patient in the office discussing the nature of her symptoms. Given the previous findings on imaging and the nature of her condition it does sound likely that some degree of her symptoms may be secondary to biliary etiology given the prior upper endoscopy and treatment for H. pylori with ongoing symptoms. I discussed the options with her. She would like to pursue cholecystectomy soon as reasonable. Arrangements will be made. I discussed with her the nature and details of the proposed procedure along with associated risks and expected outcome. She understands and agrees to proceed. Operative findings:: Mildly thickened gallbladder Operative note:: Patient was taken to the operating room. She was given preoperative intravenous antibiotics. In the operating room she was placed in a supine position. General anesthesia was induced via endotracheal tube. Abdomen was prepped and draped in the standard surgical fashion. Subumbilical skin incision was made and while performing abdominal wall lift Veress needle was inserted. CO2 pneumoperitoneum was achieved to 15 mmHg. 11 mm optical trocar was inserted at the umbilicus. Intraperitoneal contents were visualized. She was positioned in reverse Trendelenburg left side down. A couple of 5 mm trochars were inserted in the right upper abdomen. 10 mm trocar was inserted in the epigastrium. Gallbladder was identified grasped retracted anteriorly and superiorly over the dome of the liver. Infundibulum of the gallbladder was retracted anterolaterally. Blunt dissection was carried out at the neck of the gallbladder bluntly incising the peritoneum. Dissection was carried out identifying the cystic duct and cystic artery and the critical view of safety. Cystic duct was multiply clipped and sharply divided. Cystic artery was carefully coagulated with ENRIQUE ultrasonic robotic jyoti and divided. Gallbladder was dissected free from the liver in a retrograde fashion using ENRIQUE ultrasonic harmonic jyoti. There was some unavoidable spillage of bile during the dissect
--- NOTE | 2022-03-18 08:14 | HMH.ANESI ---
[facility] Anesthesia Record Part I Intake, IV Amount: 1,000 Estimated blood loss (mL): 10 Urine output (mL): 0 Blood Pressure: 92/64 SaO2: 97 Pulse Rate: 74 Respiratory Rate: 16 Temperature: 98.4 F Patient is:: Drowsy, Stable Stable to PACU at:: 08:10
--- NOTE | 2022-03-18 08:20 | PC.NURSE ---
03/18/22@0810- Bowel sounds present and hypoactive in all four quadrants.
--- NOTE | 2022-03-19 07:57 | HMH.ANESII ---
[facility] Anesthesia Record Part II Discharge Time: 08:40 Destination: Surgical Day Care (OP Surgery) PACU nurse assessment reviewed?: Yes Patient Condition:: Good Anesthesia Complications:: None Swallowing reflex intact?: Yes Cyanosis?: No Blood Pressure: 121/55 Pulse Rate: 67 Temperature: 97.8 F Mental Status: Alert & Oriented Pain level:: 0 Nausea and/or vomitting:: None Intake, IV Amount: 0
[2022-03-19 07:58] VITALS: BP 121/55; PULSE 67; TEMP 36.6
== END 2022-03-18 09:56 | disposition home or self-care (01) ==
LOC: OR 06:02
PROVIDERS: PCP Family Medicine; Visit Provider Surgery
PROC: 0FT44ZZ Resection of Gallbladder, Percutaneous Endoscopic Approach (ICD-10-PCS; CPT 47562; principal; 2022-03-18 07:00)
DX: K81.2 Acute cholecystitis with chronic cholecystitis (principal); Z80.9 Family history of malignant neoplasm, unspecified; Z83.3 Family history of diabetes mellitus; Z82.3 Family history of stroke; Z82.49 Family history of ischemic heart disease and other diseases of the circulatory system; Z81.8 Family history of other mental and behavioral disorders
CPT/HCPCS: 47562; 96374; J2405; J2710

== ENCOUNTER 2022-03-25 10:57 | Emergency (ER) | payer BC, SELFPAY ==
[2022-03-25 11:28] VITALS: BP 128/76; PULSE 99; RESP 19; TEMP 37; O2SAT 97; BMI 28.6
[2022-03-25 11:38] LABS: Apearance,Urine Turbid (Clear); Color,Urine Dark Yellow (Yellow); Glucose,Urine (UA) Negative (Negative); PH,Urine 5.5 (5.0-8.5); Protein,Urine Negative (Negative); Specific Gravity, Urine 1.025 (1.005-1.030)
[2022-03-25 11:39] LABS: Bilirubin,Urine Negative (Negative); Blood, Urine Negative (Negative); Ketones,Urine Negative (Negative); UTC Leukocyte Esterase,Urine 1+ (Negative); UTC Nitrate,Urine Negative (Negative); Urobilinogen,Urine 0.2 EU/dl (0.2)
--- NOTE | 2022-03-25 11:41 | HMH.EDUTC ---
[facility] Disposition Clinical Impression: UTI (urinary tract infection) Qualifiers: Urinary tract infection type: site unspecified Hematuria presence: with hematuria Qualified Code(s): N39.0 - Urinary tract infection, site not specified; R31.9 - Hematuria, unspecified Disposition: Home, Self-Care Condition on Discharge: Good Instructions: DI for Urinary Tract Infection (UTI) Additional Instructions: Drink plenty of fluids. Take tylenol or ibuprofen for pain or fever. Take the medications as directed. Follow up with your regular doctor. GO TO THE ER FOR ANY WORSENING SYMPTOMS The pyridium will make your urine turn orange, this is an expected side effect. It will stain your clothes if it comes into contact with them. We will culture the urine. That will tell what bacteria is causing your infection and which antibiotics will treat it best. Sometimes the first antibiotic we prescribe turns out to not work against different bacteria. So, make sure you follow up within 3 days if you are not getting better. Prescriptions: Ondansetron [Zofran 4mg ODT] 4 mg PO Q8HP PRN #20 tab PRN Reason: Nausea Transmission Status: Pending to Clinic Pharm[facility] Sulfamethoxazole/Trimethoprim [Bactrim DS tablet] 1 each PO BID 7 Days #14 tab Transmission Status: Pending to Clinic [facility] Phenazopyridine HCl [Pyridium 200mg Tablet] 200 pow PO TID #6 tab Transmission Status: Pending to [facility] Referrals: Leander Vasquez MD [Primary Care Provider] - Time of Disposition: 12:09 Medical Decision Making - Medical Records Medical records reviewed: No: I reviewed the patient's medical records. - Julio Inquiry Pt receiving controlled substance: No Vital Signs: 03/25/22 11:28 Temperature 98.6 F Temperature Source Oral Pulse Rate [Left Radial] 99 H Respiratory Rate 19 Blood Pressure [Right Arm] 128/76 Blood Pressure Mean [Right Arm] 93 02 Sat by Pulse Oximetry 97 - Lab Data Lab results reviewed: Yes: I reviewed the patient's lab results. Orders (Tests/Meds): ORDERS Category Date Time Status Urine Culture Stat Micro 03/25/22 11:21 Received [facility] HPI - General Stated complaint: possible uti Time Seen by Provider: 03/25/22 11:41 Mode of Arrival: Ambulatory Source of Information: Patient Limitations: No Limitations Description of Symptoms (Recalled from Triage Doc. by RN): symptoms began last friday. gallbladder was taken ou friday, pt now feels like she has a uti. pt states that it has been burning upon urination HEENT Symptoms (Recalled from RN notes): No Resp Symptoms (Recalled from RN notes): No Skin Symptoms (Recalled from RN notes): No MS Symptoms (Recalled from RN notes): No Functional Status (Recalled from RN notes): wnl - History of Present Illness Provider Complaint: She states that for the past 3 days she has had worsening dysuria, urinary frequency and urinary urgency. She had her gall bladder removed 1 week ago. She thinks that maybe she got a UTI from the gordon catheter they used during surgery. She denies any abdominal pain. Her incisions are healing well. She denies any fever or chills. - Related Data Previous Rx's Medication Instructions Recorded Hydrocod/Acet 5/325 mg [[place] 1 - 2 tab PO Q6HP PRN #17 tab 03/18/22 5/325mg tablet] Ondansetron [Zofran 4mg ODT] 4 mg PO Q8HP PRN #20 tab 03/25/22 Phenazopyridine HCl [Pyridium 200 pow PO TID #6 tab 03/25/22 200mg Tablet] Sulfamethoxazole/Trimethoprim 1 each PO BID 7 Days #14 tab 03/25/22 [Bactrim DS tablet] Allergies Allergy/AdvReac Type Severity Reaction Status Date / Time No Known Allergies Allergy Verified 03/25/22 11:30 - Worker's Comp Is this a Worker's Comp case?: No [facility] History - Hepatitis A Screen Attestation statement:: This patient has been screened for Hepatitis A risk factors. I have reviewed the patient's past medical history: Yes 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: D
[2022-03-25 12:11] VITALS: BP 128/76; PULSE 99; RESP 19; TEMP 37
== END 2022-03-25 12:15 | disposition home or self-care (01) ==
PROVIDERS: Emergency Provider Nurse Practitioner Family; PCP Family Medicine
DX: N30.01 Acute cystitis with hematuria (principal); Z82.49 Family history of ischemic heart disease and other diseases of the circulatory system; Z80.9 Family history of malignant neoplasm, unspecified; Z83.3 Family history of diabetes mellitus; Z81.8 Family history of other mental and behavioral disorders
CPT/HCPCS: 81003; 87086; 99213; G0463

== ENCOUNTER → 2023-05-06 09:40 | Outpatient (CLI) | payer BC, SELFPAY ==
--- NOTE | 2023-05-06 09:43 | US_ITS ---
PROCEDURE: US TRANSVAGINAL CLINICAL INDICATION: pelvic pain and abnormal bleeding COMPARISON: No exams were available for comparison FINDINGS: UTERUS: 8cm x 5cmx 4cm with a combined endometrial thickness of 2.6mm. There is a 4 mm nabothian cyst in the cervix. LEFT OVARY: [id number] with a volume of 5.7ml.There are several small follicles within the left ovary. RIGHT OVARY: 3cmx [id number] with a volume of 4.7ml. There are several small follicles in the right ovary. Both ovaries are seen and appear normal. Doppler flow to both ovaries are seen. There is no fluid in the cul-de-sac. IMPRESSION: 1. Uterus is anteverted and normal in shape and size. The endometrium is thin at 2.6 mm. 2. Both ovaries appear normal with numerous small size follicles within each ovary. 3. No fluid in the cul-de-sac. Dictated by: Jeanmarie Panda MD 05/06/2023 11:00 Jeanmarie Panda MD in OV 05/06/2023 11:00
== END ==
LOC: RAD 09:41
PROVIDERS: PCP Family Medicine; Visit Provider Obstetrics & Gynecology
DX: R10.2 Pelvic and perineal pain (principal); N93.9 Abnormal uterine and vaginal bleeding, unspecified
CPT/HCPCS: 76830

== ENCOUNTER 2023-09-11 14:27 | Emergency (ER) | payer BC, SELFPAY ==
[2023-09-11] VITALS (9 sets, daily range): BP systolic 109–128; BP diastolic 70–80; PULSE 5–64; RESP 16–20; TEMP 36.8–36.9; O2SAT 98–100; BMI 25.1
--- NOTE | 2023-09-11 14:56 | EXP.UTC ---
Discharge Plan Disposition Patient Disposition: Home, Self-Care Condition: Fair Prescriptions Prescriptions: No Action etonogestrel-ethinyl estradiol [NuvaRing] 0.12-0.015 mg/24 hr ring 1 vag ring vaginal Q4W Qty: 3 3RF Rx Instructions: leave in place for 3 weeks of a 4-week cycle Orilissa 150 mg tablet 150 mg PO DAILY Qty: 30 2RF Referrals Follow up/Referrals: Darren Rojas MD [Primary Care Provider] - See instructions Activity Restrictions/Add. Instructions Additional Instructions/Restrictions: At this time it was felt you are safe to be discharged home. If new or worsening symptoms please do not hesitate to return the emergency department. If symptoms persist please follow-up with your family doctor as you are able. Clinical Impressions Clinical Impression: Headache, Pre-syncope Stand Alone Forms Stand Alone Forms: Work/School Release Discharge ED Provider: Dilshad Smith [facility] [place] General Chief complaint: Dizziness Stated complaint: lightheaded, BANDA, shaky Time Seen by Provider: 09/11/23 14:56 History of Present Illness Provider Complaint: Patient states that she was working and has had a headache all day States that she stood up and she was seeing double and felt like she was going to pass out and became very dizzy States that coworkers helped her and sit her down and checked her fingerstick and it was 101 so they had her drink some orange juice States that since then she has still had headache and feeling dizzy but double vision has improved but they made her come down to get checked because she still felt like she was going to pass out and getting light headed Related Data Previous Rx's Medication Instructions Recorded etonogestrel 0.12 mg-ethinyl 1 vag ring vaginal Q4W #3 ea 04/30/23 estradiol 0.015 mg/24 hr vaginal ring (NuvaRing) elagolix 150 mg tablet (Orilissa) 150 mg PO DAILY #30 tabs 05/21/23 Allergies Allergy/AdvReac Type Severity Reaction Status Date / Time No Known Allergies Allergy Verified 09/11/23 15:50 [facility] Disclaimer: The information contained in this section may have been updated after the patient was seen, as this information can be updated by other users. 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 Abnormal uterine bleeding Pelvic pain Surgical History History of classical section History of salpingectomy S/P cholecystectomy S/P wisdom tooth extraction Family History Grandfather Cancer Diabetes Grandmother Diabetes Mother Thyroid disorder Diabetes Social History Smoking Status: Never smoker second hand exposure: Yes alcohol intake: never substance use type: denies use current occupational status: unemployed Travel in the last 8 weeks: None household members: spouse housing: house current occupational exposures/hazards: Yes caffeine: Yes ROS Obtained: Yes All systems reviewed & no additional complaints except as documented and Yes Systems reviewed as appropriate & no additional complaints except as documented Constitutional Constitutional: Reports system reviewed and no additional complaints, except as documented, Reports as per HPI and Reports headache(s) Eyes Eyes: Reports system reviewed and no additional complaints, except as documented, Reports as per HPI, Reports blurry vision (earlier), Reports diplopia (earlier but has improved) and Denies seeing flashes ENT Ears, Nose, Mouth, and Throat: Reports system reviewed and no additional complaints, except as documented, Reports as per HPI, Reports disequilibrium, Reports dizziness and Reports headache(s) Cardiovascular Cardiovascular: Reports system reviewed and no additional complaints, except as documented, Reports as per HPI, Denies chest pain, Denies dyspnea, Re
--- NOTE | 2023-09-11 15:05 | PC.NURSE ---
PATIENT SENT TO ER PER Jose Guadalupe SÁNCHEZ APRN FOR FURTHER EVALUATION. REPORT GIVEN TO DR. GONZALES BY Jose Guadalupe SÁNCHEZ APRN. PATIENT TRANSPORTED TO ER VIA WHEELCHAIR AND [facility] STAFF ASSIST AT THIS TIME
[2023-09-11 15:17] LABS: POC Glucose,Bedside 85 (70-110)
--- NOTE | 2023-09-11 16:02 | XR_ITS ---
FINAL REPORT CLINICAL HISTORY: presyncope COMPARISON: None FINDINGS: A single portable view of the chest was obtained. The heart size and pulmonary vascularity are within normal limits. The mediastinum is within normal limits. No acute pulmonary abnormality is identified. The bony thorax is intact. IMPRESSION: No active cardiopulmonary disease. Reviewed, Interpreted and Dictated by Stephen Linder III, MD Transcribed by Ana Bagley Authenticated and [facility]
--- NOTE | 2023-09-11 16:04 | HMH.EDGENADL ---
Discharge Plan Disposition Patient Disposition: Home, Self-Care Prescriptions Prescriptions: No Action etonogestrel-ethinyl estradiol [NuvaRing] 0.12-0.015 mg/24 hr ring 1 vag ring vaginal Q4W Qty: 3 3RF Rx Instructions: leave in place for 3 weeks of a 4-week cycle Orilissa 150 mg tablet 150 mg PO DAILY Qty: 30 2RF Referrals Follow up/Referrals: Darren Rojas MD [Primary Care Provider] - See instructions Activity Restrictions/Add. Instructions Additional Instructions/Restrictions: At this time it was felt you are safe to be discharged home. If new or worsening symptoms please do not hesitate to return the emergency department. If symptoms persist please follow-up with your family doctor as you are able. Clinical Impressions Clinical Impression: Headache, Pre-syncope Discharge ED Provider: Dilshad Smith General Adult HPI General Chief complaint: Dizziness Stated complaint: lightheaded, BANDA, shaky Time Seen by Provider: 09/11/23 14:56 Mode of Arrival: Wheelchair Source of Information: Patient Limitations: No Limitations Description of Symptoms (Recalled from ER Triage Doc. by RN): 23 yo F presents to ED from [facility] for further evaluation. pt reports she devleoped a headache this am, and then this afternoon around 1400 she began to feel dizzy. no other complaints History of Present Illness HPI narrative: Patient is 23-year-old female with past medical history of chronic headaches who presents emergency department for evaluation of headache and dizziness. History is obtained by patient at bedside. Onset was acute, occurring over this afternoon. 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 Patient typically has 4 headaches a week at baseline, bitemporal, moderate in intensity. This headache feels similar to other headaches. She also had associated transient lightheadedness, does not describe room spinning. She presents here for continued evaluation. No other acute complaints at this time. Last menstrual period recently. Related Data Previous Rx's Medication Instructions Recorded etonogestrel 0.12 mg-ethinyl 1 vag ring vaginal Q4W #3 ea 04/30/23 estradiol 0.015 mg/24 hr vaginal ring (NuvaRing) elagolix 150 mg tablet (Orilissa) 150 mg PO DAILY #30 tabs 05/21/23 Allergies Allergy/AdvReac Type Severity Reaction Status Date / Time No Known Allergies Allergy Verified 09/11/23 15:50 [facility] Disclaimer: The information contained in this section may have been updated after the patient was seen, as this information can be updated by other users. 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 Abnormal uterine bleeding Pelvic pain Surgical History History of classical section History of salpingectomy S/P cholecystectomy S/P wisdom tooth extraction Family History Grandfather Cancer Diabetes Grandmother Diabetes Mother Thyroid disorder Diabetes Social History Smoking Status: Never smoker second hand exposure: Yes alcohol intake: never substance use type: denies use current occupational status: unemployed Travel in the last 8 weeks: None household members: spouse housing: house current occupational exposures/hazards: Yes caffeine: Yes ROS Obtained: Yes Systems reviewed as appropriate & no additional complaints except as documented Physical Exam General General appearance: alert and in no apparent distress Head Head exam: atraumatic and normocephalic Eye Eye exam: Present PERRL and EOMI; Absent nystagmus ENT ENT exam: Present mucous membranes moist Neck Neck exam: Present normal inspection Chest Chest inspection: Present normal inspection and symmetric chest wall rise Respiratory Respiratory exam: Present normal lung sounds b
[2023-09-11 16:10] LABS: Basophils # 0.1 K/mm3 (0-0.2); Eosinophils # 0.2 K/mm3 (0.0-0.4); Eosinophils % 2.1 % (0.1-12.0); Hematocrit 41.7 % (37.0-47.0); Hemoglobin 13.9 g/dL (12.2-16.2); Lymphocytes # 2.9 K/mm3 (0.7-4.5); Lymphocytes % 36.4 % (10-50); Mean Corpuscular HGB Conc 33.4 g/dL (31.8-35.4); Mean Corpuscular Hemoglobin 28.4 pg (27.0-31.2); Mean Corpuscular Volume 84.9 fl (81-99); Mean Platelet Volume 7.9 fl (7.4-10.4); Monocytes # 0.4 K/mm3 (0.1-1.0); Monocytes % 4.4 % (1.7-9.3); Neutrophils # 4.5 K/mm3 (1.8-7.8); Neutrophils % 56.2 % (37.0-80.0); Platelet Count 269 K/mm3 (142-424); Red Blood Count 4.91 M/mm3 (4.20-5.40); Red Cell Distribution Width 12.9 % (11.5-17.5); White Blood Count 7.9 K/mm3 (4.8-10.8)
[2023-09-11 16:11] LABS: Chloride 105 mmol/L (98-107); Potassium 3.8 mmoL/L (3.5-5.1); Sodium 141 mmol/L (136-145)
[2023-09-11 16:14] LABS: Alanine Aminotransferase 19 U/L (12-78); Albumin Level 4.7 g/dl (3.5-5.0); Albumin/Globulin Ratio 1.3 (1.1-1.8); Alkaline Phosphatase 68 U/L (38-126); Anion Gap 10.8 mEq/L (5-15); Aspartate Amino Transferase 32 U/L (14-36); Bilirubin,Total 0.3 mg/dl (0.2-1.3); Blood Urea Nitrogen 11 mg/dl (7-17); Carbon Dioxide 29 mmol/L (22.0-30.0); Creatinine Clearance Estimated 131 mL/min (50-200); Estimated Glomerular Filt Rate 87 ml/min (>60); GFR (African American) 106 ML/MIN (>60); Globulin 3.5 g/dL (1.3-3.2); Glucose 74 mg/dl (74-100); Total Protein,Serum 8.2 g/dl (6.3-8.2)
[2023-09-11 16:29] LABS: HCG Qualitative, Serum Negative (Negative)
--- NOTE | 2023-09-11 16:33 | ECG_ITS ---
APPROVED REPORT Exam: Resting ECG HR:61 bpm ECG Measurements Heart Rate 61 AXES MT 131 P 73 QRSd 97 QRS 56 QT 442 T 49 QTc 444 Conclusion SINUS RHYTHM LOW QRS VOLTAGE IN PRECORDIAL LEADS [QRS DEFLECTION < 1.0 mV IN CHEST LEADS] INCOMPLETE RIGHT BUNDLE BRANCH BLOCK [90+ ms QRS DURATION, TERMINAL R IN V1/V2, 40+ ms S IN I/aVL/V4/V5/V6] BORDERLINE ECG UNCONFIRMED REPORT Electronically signed by : Darren Rojas MD 09/11/2023 21:35:43
[2023-09-11 16:53] LABS: Coronavirus 19, PCR Not Detected (NotDetected); Influenza A, PCR Not Detected (NotDetected); Influenza B, PCR Not Detected (NotDetected)
== END 2023-09-11 17:50 | disposition home or self-care (01) ==
LOC: UTC 14:29 → ER 15:02
PROVIDERS: Nurse Practitioner; Emergency Provider Emergency Medicine; PCP Internal Medicine Adolescent Medicine
DX: R51.9 Headache, unspecified (principal); R55 Syncope and collapse; R25.1 Tremor, unspecified
CPT/HCPCS: 71045; 80053; 82962; 83735; 84703; 85025; 87636; 93005; 96361; 96374; 96375; 99284; J0131

== ENCOUNTER → 2023-10-14 15:26 | Outpatient (CLI) | payer BC, SELFPAY ==
--- NOTE | 2023-10-14 15:29 | MR_ITS ---
FINAL REPORT CLINICAL HISTORY: SYNCOPE AND COLLAPSE. HEADACHE, LIGHTHEADEDNESS. PRESSURE IN HEAD. SYMPTOMS [id number] FINDINGS: Multiplanar MR imaging of the brain was performed without contrast. There is no evidence of intracranial hemorrhage or mass. The ventricular size is normal. There is no evidence of shift of the midline structures. No area of restricted diffusion is identified. The posterior fossa and brainstem have an unremarkable appearance. Normal major vessel vascular flow voids are seen. IMPRESSION: Unremarkable brain with no focal abnormality identified. Authenticated and ERN
== END ==
LOC: RAD 15:27
PROVIDERS: PCP Internal Medicine Adolescent Medicine; Visit Provider Internal Medicine Adolescent Medicine
DX: R51.9 Headache, unspecified (principal); R55 Syncope and collapse; R42 Dizziness and giddiness
CPT/HCPCS: 70551

== ENCOUNTER 2023-10-15 17:41 | Emergency (ER) | payer BC, SELFPAY ==
[2023-10-15 18:20] VITALS: BP 118/54; PULSE 62; RESP 18; TEMP 37.1; O2SAT 97; BMI 27.0
--- NOTE | 2023-10-15 18:25 | EXP.UTC ---
Discharge Plan Disposition Patient Disposition: Home, Self-Care Condition: Good Prescriptions Prescriptions: New syrewmcvkkdxeom-hklcvcjqj-JH [Bromfed DM] 2-30-10 mg/5 mL Syrup 5 ml PO Q6H PRN (Reason: Cough) Qty: 240 0RF ondansetron 4 mg Tablet,Disintegrating 4 mg PO Q8H PRN (Reason: Nausea) Qty: 12 0RF No Action pantoprazole [Protonix] 40 mg tablet,delayed release (DR/EC) 40 mg PO DAILY Qty: 30 2RF norethindrone (contraceptive) 0.35 mg tablet 0.35 mg PO DAILY Qty: 84 2RF Referrals Follow up/Referrals: Darren Rojas MD [Primary Care Provider] - See instructions Activity Restrictions/Add. Instructions Additional Instructions/Restrictions: Drink plenty of fluids. Take tylenol or ibuprofen for pain or fever. Take the medications as directed. Follow up with your regular doctor. GO TO THE ER FOR ANY WORSENING SYMPTOMS Clinical Impressions Clinical Impression: Acute viral syndrome Stand Alone Forms Stand Alone Forms: Work/School Release Instructions Patient Instructions: DI for Viral Syndrome Discharge ED Provider: James Morales [facility] General Stated complaint: covid exposure, congestion, diarrhea, cough Time Seen by Provider: 10/15/23 18:25 History of Present Illness Provider Complaint: She states that since yesterday she has had low grade fever, chills, body aches, sinus and chest congestion, nonproductive cough, and nausea/diarrhea. She denies vomiting. She denies shortness of breath. She has been exposed to covid-19 in her workplace. Related Data Previous Rx's Medication Instructions Recorded norethindrone (contraceptive) 0.35 0.35 mg PO DAILY #84 tabs 10/01/23 mg tablet pantoprazole 40 mg tablet,delayed 40 mg PO DAILY #30 tabs 10/01/23 release (Protonix) qhzmlanmxnaxhvv-aqqghaoxxrnyaid-FW 5 ml PO Q6H PRN Cough #240 mL 10/15/23 2 mg-30 mg-10 mg/5 mL oral syrup (Bromfed DM) ondansetron 4 mg disintegrating 4 mg PO Q8H PRN Nausea #12 tabs 10/15/23 tablet Allergies Allergy/AdvReac Type Severity Reaction Status Date / Time No Known Allergies Allergy Verified 10/15/23 18:35 [facility] Disclaimer: The information contained in this section may have been updated after the patient was seen, as this information can be updated by other users. 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 (Updated 10/15/23 @ 19:29 by James Morales APRN) Abnormal uterine bleeding Heartburn Pelvic pain Surgical History History of classical section History of salpingectomy Hx of tonsillectomy S/P cholecystectomy S/P wisdom tooth extraction Family History Grandfather Cancer Diabetes Grandmother Diabetes Mother Thyroid disorder Diabetes Social History Smoking Status: Never smoker second hand exposure: Yes alcohol intake: never substance use type: denies use current occupational status: unemployed Travel in the last 8 weeks: None household members: spouse housing: house current occupational exposures/hazards: Yes caffeine: Yes ROS Obtained: Yes All systems reviewed & no additional complaints except as documented Constitutional Constitutional: Reports chills and Reports fever(s) Eyes Eyes: Denies eye discharge ENT Ears, Nose, Mouth, and Throat: Reports as per HPI Cardiovascular Cardiovascular: Denies chest pain Respiratory Respiratory: Denies chest congestion and Reports cough Gastrointestinal Gastrointestingal: Reports nausea; Denies abdominal pain, constipation, cramping, diarrhea or vomiting Musculoskeletal Musculoskeletal: Denies arthralgias Integumentary/Breasts Skin/Breast: Denies rash Neurologic Neurologic: Denies paresthesias Physical Exam General General appearance: alert and in no apparent distress Head Head exam: atraumatic, normocephalic and normal inspection Eye Eye exam
--- NOTE | 2023-10-15 18:57 | PC.NURSE ---
Called Lab to see status on rapid Covid
[2023-10-15 18:59] LABS: Coronavirus 19, PCR Not Detected (NotDetected); Influenza A, PCR Not Detected (NotDetected); Influenza B, PCR Not Detected (NotDetected)
[2023-10-15 19:54] LABS: UTC Strep Screen (Rapid) Negative (Negative)
[2023-10-15 19:56] VITALS: BP 118/54; PULSE 62; RESP 18; TEMP 37.1; O2SAT 97
== END 2023-10-15 19:56 | disposition home or self-care (01) ==
PROVIDERS: Emergency Provider Nurse Practitioner Family; PCP Internal Medicine Adolescent Medicine
DX: R05.9 Cough, unspecified (principal); R50.9 Fever, unspecified; R19.7 Diarrhea, unspecified; R11.0 Nausea; R09.81 Nasal congestion; R09.89 Other specified symptoms and signs involving the circulatory and respiratory systems; Z20.822 Contact with and (suspected) exposure to COVID-19
CPT/HCPCS: 87636; 87880; 99212; 99214; G0463

== ENCOUNTER 2024-01-30 07:08 | Outpatient (CLI) | payer OTHER, SELFPAY ==
[2024-01-30 07:35] LABS: Basophils # 0.1 K/mm3 (0-0.2); Basophils % 1.8 % (0.1-2.0); Eosinophils # 0.1 K/mm3 (0.0-0.4); Eosinophils % 1.9 % (0.1-12.0); Hematocrit 43.6 % (37.0-47.0); Hemoglobin 13.6 g/dL (12.2-16.2); Lymphocytes # 2.1 K/mm3 (0.7-4.5); Lymphocytes % 37.5 % (10-50); Mean Corpuscular HGB Conc 31.2 g/dL (31.8-35.4); Mean Corpuscular Hemoglobin 27.9 pg (27.0-31.2); Mean Corpuscular Volume 89.4 fl (81-99); Mean Platelet Volume 7.8 fl (7.4-10.4); Monocytes # 0.3 K/mm3 (0.1-1.0); Monocytes % 4.5 % (1.7-9.3); Neutrophils % 54.2 % (37.0-80.0); Platelet Count 247 K/mm3 (142-424); Red Blood Count 4.88 M/mm3 (4.20-5.40); Red Cell Distribution Width 13.9 % (11.5-17.5); White Blood Count 5.6 K/mm3 (4.8-10.8)
[2024-01-30 09:26] LABS: Chloride 108 mmol/L (98-107); Potassium 4.3 mmoL/L (3.5-5.1); Sodium 140 mmol/L (136-145)
[2024-01-30 09:29] LABS: Alanine Aminotransferase 16 U/L (12-78); Albumin/Globulin Ratio 1.5 (1.1-1.8); Alkaline Phosphatase 77 U/L (38-126); Anion Gap 10.3 mEq/L (5-15); Aspartate Amino Transferase 22 U/L (14-36); Bilirubin,Total 0.6 mg/dl (0.2-1.3); Blood Urea Nitrogen 12 mg/dl (7-17); Calcium 9.2 mg/dl (8.4-10.2); Carbon Dioxide 26 mmol/L (22.0-30.0); Cholesterol 150 mg/dl (140-200); Estimated Glomerular Filt Rate 87 ml/min (>60); GFR (African American) 106 ML/MIN (>60); Globulin 2.7 g/dL (1.3-3.2); Glucose 91 mg/dl (74-100); Total Protein,Serum 6.7 g/dl (6.3-8.2); Triglycerides 43 mg/dl (30-150); VLDL Cholesterol 9 mg/dL (0-40)
[2024-01-30 09:30] LABS: Chol/HDL Ratio 3.4 (1-3.5); HDL Cholesterol 44 mg/dl (40-60)
[2024-01-30 09:40] LABS: Direct LDL Cholesterol 78.65 mg/dL (100-129)
[2024-01-30 09:46] LABS: Free T4 (Free Thyroxine) 1.35 ng/dl (0.78-2.19)
[2024-01-30 10:00] LABS: Thyroid Stimulating Hormone 1.34 uIU/mL (0.465-4.68)
[2024-01-30 10:08] LABS: 25-OH Vitamin D, Total 45.5 ng/mL (30-100)
[2024-02-01 14:47] LABS: H. pylori Breath Test Negative (Negative)
== END 2024-01-30 23:59 ==
LOC: LAB 07:08
PROVIDERS: PCP Internal Medicine; Visit Provider Internal Medicine
DX: R10.11 Right upper quadrant pain (principal); R12 Heartburn; Z13.21 Encounter for screening for nutritional disorder; Z79.899 Other long term (current) drug therapy
CPT/HCPCS: 36415; 80053; 80061; 82306; 83013; 83036; 84439; 84443; 85025

== ENCOUNTER 2024-03-25 08:42 | Emergency (ER) | payer OTHER, SELFPAY ==
[2024-03-25 08:50] VITALS: BP 108/76; PULSE 89; RESP 17; TEMP 36.7; O2SAT 98; BMI 25.7
[2024-03-25 08:54] VITALS: BMI 25.7
[2024-03-25] MEDS: ACETAMINOPHEN 325MG TAB 650 MG PO (08:57)
--- NOTE | 2024-03-25 09:06 | ED_ITS ---
Discharge Plan Disposition Patient Disposition: Home, Self-Care Condition: Good Prescriptions Prescriptions: New azithromycin [Zithromax Z-Suresh] 250 mg tablet See Rx Instructions .ROUTE .COMPLEX 5 Days Qty: 6 0RF Rx Instructions: For 250 mg dose pack: take 500 mg today (day 1), then 250 mg for 4 days (days 2-5) methylprednisolone [Medrol (Suresh)] 4 mg tablets,dose pack See Rx Instructions .Route .COMPLEX 6 Days Qty: 21 0RF Rx Instructions: taper pack; No Action norethindrone (contraceptive) 0.35 mg tablet 0.35 mg PO DAILY clobetasol 0.05 % ointment 1 applic topical HS Qty: 30 0RF prochlorperazine maleate 5 mg tablet 5 mg PO TID PRN (Reason: nausea and vomiting) Qty: 30 2RF dicyclomine 20 mg tablet 20 mg PO TID PRN (Reason: abdominal pain) Qty: 60 2RF pantoprazole [Protonix] 40 mg tablet,delayed release (DR/EC) 40 mg PO DAILY Qty: 30 2RF Referrals Follow up/Referrals: Quoc Diaz DO [Primary Care Provider] - See instructions Activity Restrictions/Add. Instructions Additional Instructions/Restrictions: *Monitor Temp, Over the counter Motrin or Tylenol as directed/as needed Tylenol every 4 hours and Motrin every 6 hours (as long as your family doctor has told you that you can take it) for fever or pain. and straight to ER if unable to lower temp less than 101.0 after medication given *Warm salt water gargles may help to soothe the throat *Throat Lozenges? *Warm fluids like tea with honey may help to soothe the throat? *Sleep elevated *Humidifier/Vaporizer Start oral steriods tommorrow Follow up IMMEDIATELY for new or worsening symptoms or no Noticeable improvement over the next 48-72 hours. 911 for difficulty breathing or swallowing Clinical Impressions Clinical Impression: Sinusitis Qualifiers: Sinusitis location: unspecified location Chronicity: unspecified Qualified Code(s): J32.9 - Chronic sinusitis, unspecified Instructions Patient Instructions: Sinustheron, DI for Sinusitis Discharge ED Provider: Tri Miranda [facility] HPI General Stated complaint: nasal congestion, headache, pain in both ears Mode of Arrival: Ambulatory Source of Information: Patient Limitations: No Limitations Time Seen by Provider: 03/25/24 09:06 Description of Symptoms (Recalled from Triage Doc. by RN): PATIENT C/O BILATERAL EAR PERSSURE, RUNNY NOSE, HEADACHE, AND COUGH X 3 DAYS HEENT Symptoms (Recalled from RN notes): Yes Resp Symptoms (Recalled from RN notes): Yes Skin Symptoms (Recalled from RN notes): No MS Symptoms (Recalled from RN notes): No Functional Status (Recalled from RN notes): WNL History of Present Illness Provider Complaint: Patient states that she started on Friday with sinus congestion and runny nose that has continued to get worse States that she is having sinus pain and pressure, pressure behind her eyes and in her ears feels like she may have a bad sinus infection Related Data Home Medications Medication Instructions Recorded Confirmed norethindrone (contraceptive) 0.35 0.35 mg PO DAILY 01/12/24 02/09/24 mg tablet Previous Rx's Medication Instructions Recorded pantoprazole 40 mg tablet,delayed 40 mg PO DAILY #30 tabs 10/01/23 release (Protonix) clobetasol 0.05 % topical ointment 1 applic topical HS #30 grams 01/12/24 prochlorperazine maleate 5 mg 5 mg PO TID PRN nausea and 01/29/24 tablet vomiting #30 tabs dicyclomine 20 mg tablet 20 mg PO TID PRN abdominal pain 02/05/24 #60 tabs azithromycin 250 mg tablet See Rx Instructions PO .COMPLEX 5 03/25/24 (Zithromax Z-Suresh) days #6 tabs methylprednisolone 4 mg tablets in See Rx Instructions .Route 03/25/24 a dose pack (Medrol (Suresh)) .COMPLEX 6 days #21 tabs Allergies Allergy/AdvReac Type Severity Reaction Status Date / Time No Known Allergies Allergy Verified 02/09/24 10:28 Worker's Comp Is this a Worker's Comp case?: No [facility] Disclaimer: The information contained in this section may have been updated after the patient was seen, as this information can be updated by other users. 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 (Updated 03/25/24 @ 09:11 by Avani Miranda, [employer]) Migraine Lichen sclerosus of vulva Heartburn Abnormal uterine bleeding Pelvic pain Surgical History Hx of tonsillectomy S/P wisdom tooth extraction History of salpingectomy S/P cholecystectomy History of classical section Family History Grandfather Cancer Diabetes Grandmother Diabetes Mother Thyroid disorder Diabetes Social History Smoking Status: Never smoker second hand exposure: Yes alcohol intake: never substance use type: denies use current occupational status: unemployed Travel in the last 8 weeks: None household members: spouse housing: house current occupational exposures/hazards: Yes caffeine: Yes ROS Obtained: Yes All systems reviewed & no additional complaints except as documented and Yes Systems reviewed as appropriate & no additional complaints except as documented Constitutional Constitutional: Reports system reviewed and no additional complaints, except as documented, Reports as per HPI and Reports headache(s) ENT Ears, Nose, Mouth, and Throat: Reports system reviewed and no additional complaints, except as documented, Reports as per HPI, Reports otalgia, Reports headache(s), Reports sinus pain and Reports sinus pressure Cardiovascular Cardiovascular: Reports system reviewed and no additional complaints, except as documented and Reports as per HPI Respiratory Respiratory: Reports system reviewed and no additional complaints, except as documented, Reports as per HPI and Reports cough Gastrointestinal Gastrointestingal: Reports system reviewed and no additional complaints, except as documented and as per HPI Neurologic Neurologic: Reports headache(s) Physical Exam General General appearance: alert and in no apparent distress ENT ENT exam: Present mucous membranes moist Expanded ENT Exam TM/Canal exam: Bilateral TM: bulging Nose exam: Present sinus tenderness Throat exam: Present other (PND noted) Respiratory Respiratory exam: Present normal lung sounds bilaterally; Absent respiratory distress or wheezes Cardiovascular Cardiovascular exam: Present regular rate, normal rhythm and normal heart sounds Neurological Exam Neurological exam: Present alert, oriented X3 and normal gait Medical Decision Making Julio Inquiry Pt receiving controlled substance: No Julio was queried for this patient: No Vital Signs: 03/25/24 08:50 Temperature 98.0 F Temperature Source Oral Pulse Rate [Left Brachial] 89 Respiratory Rate 17 Blood Pressure [Left Arm] 108/76 L Blood Pressure Mean [Left Arm] 86 Blood Pressure Source [Left Arm] Automatic Cuff Blood Pressure Position [Left Arm] Sitting 02 Sat by Pulse Oximetry 98 Oxygen Delivery Method Room Air Orders (Tests/Meds): ED MEDICATIONS Generic Name Dose Route Start Last Admin Trade Name Freq PRN Reason Stop Dose Admin Acetaminophen 650 mg 03/25/24 08:55 03/25/24 08:57 Acetaminophen 325mg Tab PO 03/25/24 08:56 650 mg ONCE ONE Administration
[2024-03-25] MEDS: LIDOCAINE 1% 5ML PF VIAL IM (09:17)
[2024-03-25] MEDS: METHYLPREDNISOLONE SOD SUCC 125MG VIAL 125 MG IM (09:17)
[2024-03-25] MEDS: cefTRIAXone 1GM VIAL 1 GM IM (09:17)
[2024-03-25 09:28] VITALS: BP 108/76; PULSE 89; RESP 17; TEMP 36.7; O2SAT 98
== END 2024-03-25 09:31 | disposition home or self-care (01) ==
PROVIDERS: Emergency Provider Nurse Practitioner; PCP Internal Medicine
DX: J01.90 Acute sinusitis, unspecified (principal); R51.9 Headache, unspecified; H92.03 Otalgia, bilateral; R09.81 Nasal congestion
CPT/HCPCS: 96372; 99212; 99214; G0463; J0696

== ENCOUNTER 2024-04-09 09:08 | Emergency (ER) | payer OTHER, SELFPAY ==
[2024-04-09 09:09] VITALS: BP 123/75; PULSE 79; RESP 13; TEMP 37.1; O2SAT 99; BMI 25.8
[2024-04-09 09:22] VITALS: BP 123/75; PULSE 91; O2SAT 98
--- NOTE | 2024-04-09 09:31 | PC.NURSE ---
DR MOJICA AT BEDSIDE
--- NOTE | 2024-04-09 09:37 | HMH.EDGENADL ---
Discharge Plan Disposition Patient Disposition: Home, Self-Care Condition: Good Prescriptions Prescriptions: No Action norethindrone (contraceptive) 0.35 mg tablet 0.35 mg PO DAILY clobetasol 0.05 % ointment 1 applic topical HS Qty: 30 0RF prochlorperazine maleate 5 mg tablet 5 mg PO TID PRN (Reason: nausea and vomiting) Qty: 30 2RF dicyclomine 20 mg tablet 20 mg PO TID PRN (Reason: abdominal pain) Qty: 60 2RF pantoprazole [Protonix] 40 mg tablet,delayed release (DR/EC) 40 mg PO DAILY Qty: 30 2RF azithromycin [Zithromax Z-Suresh] 250 mg tablet See Rx Instructions .ROUTE .COMPLEX 5 Days Qty: 6 0RF Rx Instructions: For 250 mg dose pack: take 500 mg today (day 1), then 250 mg for 4 days (days 2-5) methylprednisolone [Medrol (Suresh)] 4 mg tablets,dose pack See Rx Instructions .Route .COMPLEX 6 Days Qty: 21 0RF Rx Instructions: taper pack; Referrals Follow up/Referrals: Quoc Diaz DO [Primary Care Provider] - See instructions Clinical Impressions Clinical Impression: Needle exposure Qualifiers: Encounter type: initial encounter Qualified Code(s): X58.XXXA - Exposure to other specified factors, initial encounter Instructions Patient Instructions: DI for Skin Abscess Discharge ED Provider: Jarett Durbin General Adult HPI General Chief complaint: Skin/Abscess/Foreign Body Stated complaint: needle stick at work Time Seen by Provider: 04/09/24 09:29 Mode of Arrival: Ambulatory Source of Information: Patient Limitations: No Limitations Description of Symptoms (Recalled from ER Triage Doc. by RN): pt is employee of [employer]. pt reports that at 0835 she was accidentaly stuck with a biposy needle after using the needle on the pt. left hand, middle finger. History of Present Illness HPI narrative: Patient is an otherwise healthy 23-year-old female presenting due to needlestick. 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 Patient states she was wearing gloves however believes the needle did puncture through the glove. Patient was advised to come to the ED for evaluation. Patient states she feels well overall. Denies any other injury. She is unsure when her last Tdap was. Related Data Home Medications Medication Instructions Recorded Confirmed norethindrone (contraceptive) 0.35 0.35 mg PO DAILY 01/12/24 02/09/24 mg tablet Previous Rx's Medication Instructions Recorded pantoprazole 40 mg tablet,delayed 40 mg PO DAILY #30 tabs 10/01/23 release (Protonix) clobetasol 0.05 % topical ointment 1 applic topical HS #30 grams 01/12/24 prochlorperazine maleate 5 mg 5 mg PO TID PRN nausea and 01/29/24 tablet vomiting #30 tabs dicyclomine 20 mg tablet 20 mg PO TID PRN abdominal pain 02/05/24 #60 tabs azithromycin 250 mg tablet See Rx Instructions PO .COMPLEX 5 03/25/24 (Zithromax Z-Suresh) days #6 tabs methylprednisolone 4 mg tablets in See Rx Instructions .Route 03/25/24 a dose pack (Medrol (Suresh)) .COMPLEX 6 days #21 tabs Allergies Allergy/AdvReac Type Severity Reaction Status Date / Time No Known Allergies Allergy Verified 02/09/24 10:28 [facility] Disclaimer: The information contained in this section may have been updated after the patient was seen, as this information can be updated by other users. 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 (Updated 04/09/24 @ 11:19 by Jarett Durbin MD) Migraine Lichen sclerosus of vulva Heartburn Abnormal uterine bleeding Pelvic pain Surgical History Hx of tonsillectomy S/P wisdom tooth extraction History of salpingectomy S/P cholecystectomy History of classical section Family History Grandfather Cancer Diabetes Grandmother Diabetes Mother Thyroid disorder Diabetes Social History Smoking Status: Never smoker second hand exposure: Yes alcohol intake: never substance use type: denies use current occupational status: unemployed Travel in the last 8 weeks: None household members: spouse housing: house current occupational exposures/hazards: Yes caffeine: Yes ROS Obtained: Yes All systems reviewed & no additional complaints except as documented Physical Exam General General appearance: alert and in no apparent distress Head Head exam: atraumatic, normocephalic and normal inspection Eye Eye exam: Present normal appearance, PERRL and EOMI ENT ENT exam: Present normal exam, normal oropharynx, mucous membranes moist, TM's normal bilaterally and normal external ear exam Neck Neck exam: Present normal inspection, full ROM and trachea midline; Absent meningismus or lymphadenopathy Chest Chest inspection: Present normal inspection and symmetric chest wall rise; Absent tenderness Respiratory Respiratory exam: Present normal lung sounds bilaterally; Absent respiratory distress Cardiovascular Cardiovascular exam: Present regular rate and normal rhythm; Absent JVD Abdominal Exam Abdominal exam: Present soft and normal bowel sounds; Absent distention, tenderness or guarding Extremities Exam Extremities exam: Present normal inspection, full ROM and normal capillary refill; Absent calf tenderness Back Exam Back exam: Present normal inspection; Absent tenderness Neurological Exam Neurological exam: Present alert and oriented X3 Psychiatric Psychiatric exam: Present normal affect and normal mood Skin Skin exam: Present warm, dry, intact, normal color and other (Submillimeter puncture wound to palmar surface of left hand third digit. No bleeding.) Lymphatic Lymphatic Findings: no adenopathy Medical Decision Making Medical Records Medical records reviewed: Yes I reviewed the patient's medical records. Julio Inquiry Pt receiving controlled substance: No Vital Signs: 04/09/24 09:09 04/09/24 09:22 Temperature 98.8 F Temperature Source Oral Pulse Rate 91 H Pulse Rate [Left Radial] 79 Respiratory Rate 13 Blood Pressure 123/75 Blood Pressure [Right Arm] 123/75 Blood Pressure Mean [Right Arm] 91 02 Sat by Pulse Oximetry 99 98 Oxygen Delivery Method Room Air Room Air Lab Data Lab Results 04/09/24 09:30: WBC 6.9, RBC 4.71, Hgb 13.1, Hct 40.3, MCV 85.6, MCH 27.8, MCHC 32.5, RDW 13.6, Plt Count 275, MPV 7.5, Neut % (Auto) 60.6, Lymph % (Auto) 32.1, [place] % (Auto) 4.3, Eos % (Auto) 1.8, Baso % (Auto) 1.2, Neut # (Auto) 4.2, Lymph # (Auto) 2.2, [place] # (Auto) 0.3, Eos # (Auto) 0.1, Baso # (Auto) 0.1, PT 10.5, INR 0.97, APTT 30.4, Total Bilirubin 0.8, Direct Bilirubin 0.0, Conjugated Bilirubin 0.0, Indirect Bilirubin 0.8, Unconjugated Bilirubin 0.8, AST 32, ALT 20, Alkaline Phosphatase 62, Total Protein 7.4, Albumin 4.1 04/09/24 09:30 Orders (Tests/Meds): ED MEDICATIONS Discontinued Medications Generic Name Dose Route Start Last Admin Trade Name Freq PRN Reason Stop Dose Admin Tetanus/Diphtheria Toxoids 0.5 ml 04/09/24 09:38 04/09/24 09:43 Tetanus-Diphth Toxoid, Adult 0.5ml Syr IM 04/09/24 09:39 0.5 ml .ONCE ONE Administration Tetanus/Reduced Diphtheria/Acell Pertussis 0.5 ml 04/09/24 09:47 04/09/24 09:54 Tet/Diphth/Pert-Adult 0.5ml Syringe IM 04/09/24 09:48 Not Given .ONCE ONE ORDERS Category Date Time Status CBC w/Auto Diff [Complete Blood Count Auto Diff] Stat Lab 04/09/24 09:30 Completed HBsAg Screen Stat Lab 04/09/24 09:30 Received HIV Panel [id number] Stat Lab 04/09/24 09:30 Received Hep B Surface Ab, Qual Stat Lab 04/09/24 09:30 Received Hepatitis C Antibody Stat Lab 04/09/24 09:30 Received Liver Panel Stat Lab 04/09/24 09:30 Completed PT INR [Prothrombin Time INR] Stat Lab 04/09/24 09:30 Completed PTT [Activated Partial Thrombo Time] Stat Lab 04/09/24 09:30 Completed Medical Decision Narrative: In summary, patient is healthy 23-year-old female, evaluated in the emergency department today due to accidental needlestick. On arrival, patient is hemodynamically stable with normal vital signs. On examination, patient has submillimeter puncture wound to left hand third digit. Differential diagnosis includes but is not limited to transmission of disease, underlying fracture, contaminated wound. Workup initiated including CBC, PT, PTT, liver panel, hepatitis B antibody/surface antibody, hepatitis C antibody, HIV panel, UDS. Labs independently interpreted by me and significant for no significant findings on CBC, PT, PTT, lipid panel. On reevaluation, patient is resting comfortably in no distress. Wound was irrigated thoroughly. She is appropriate for discharge at this time. Patient counseled on home care, given strict return precautions and agreeable to plan. I considered the utility of obtaining imaging, but decided against this because this would not chart changer. I considered the utility of treatment with antibiotics, but decided against this because this will be of low utility. Critical Care Critical Care Time Critical Care Time: No
[2024-04-09] MEDS: TETANUS-DIPHTH TOXOID, ADULT 0.5ML SYR 0.5 ML IM (09:43)
[2024-04-09 10:18] LABS: Basophils # 0.1 K/mm3 (0-0.2); Basophils % 1.2 % (0.1-2.0); Eosinophils # 0.1 K/mm3 (0.0-0.4); Eosinophils % 1.8 % (0.1-12.0); Hematocrit 40.3 % (37.0-47.0); Hemoglobin 13.1 g/dL (12.2-16.2); Lymphocytes # 2.2 K/mm3 (0.7-4.5); Lymphocytes % 32.1 % (10-50); Mean Corpuscular HGB Conc 32.5 g/dL (31.8-35.4); Mean Corpuscular Hemoglobin 27.8 pg (27.0-31.2); Mean Corpuscular Volume 85.6 fl (81-99); Mean Platelet Volume 7.5 fl (7.4-10.4); Monocytes # 0.3 K/mm3 (0.1-1.0); Monocytes % 4.3 % (1.7-9.3); Neutrophils # 4.2 K/mm3 (1.8-7.8); Neutrophils % 60.6 % (37.0-80.0); Platelet Count 275 K/mm3 (142-424); Red Blood Count 4.71 M/mm3 (4.20-5.40); Red Cell Distribution Width 13.6 % (11.5-17.5); White Blood Count 6.9 K/mm3 (4.8-10.8)
[2024-04-09 10:31] LABS: Alanine Aminotransferase 20 U/L (12-78); Albumin Level 4.1 g/dl (3.5-5.0); Alkaline Phosphatase 62 U/L (38-126); Aspartate Amino Transferase 32 U/L (14-36); Bilirubin,Indirect 0.8 mg/dL (0.0-0.9); Bilirubin,Total 0.8 mg/dl (0.2-1.3); Bilirubin,Unconjugated 0.8 mg/dL (0.0-1.1); Total Protein,Serum 7.4 g/dl (6.3-8.2)
[2024-04-09 10:32] LABS: Activated Partial Thrombo Time 30.4 seconds (22.8-30.6); INR 0.97 (0.9-1.1); Prothrombin Time 10.5 seconds (10.1-12.5)
[2024-04-09 11:27] VITALS: BP 125/72; PULSE 80; RESP 18; TEMP 37.1; O2SAT 99
[2024-04-10 13:58] LABS: HIV Screen 4th Generation wRfx Non Reactive (Non Reactive)
[2024-04-11 08:59] LABS: Hepatitis B Surface Antigen Negative
[2024-04-11 09:00] LABS: Hep B Surface Ab, Qual Reactive; Hepatitis C Antibody Non Reactive
== END 2024-04-09 11:28 | disposition home or self-care (01) ==
PROVIDERS: Emergency Provider Student in an Organized Health Care Education/Training Program; PCP Internal Medicine
DX: S61.432A Puncture wound without foreign body of left hand, initial encounter (principal); W46.1XXA Contact with contaminated hypodermic needle, initial encounter; Z23 Encounter for immunization
CPT/HCPCS: 36415; 80076; 85025; 85610; 85730; 86703; 86706; 87340; 87380; 90714; 96372; 99282; 99283; G0432

== ENCOUNTER 2024-04-28 08:06 | Outpatient (CLI) | payer OTHER, SELFPAY ==
[2024-04-29 15:16] LABS: Deamidated Gliadin Abs, IgA 7 units (0-19); Deamidated Gliadin Abs, IgG 2 units (0-19); Endomysial IgA Antibody Negative (Negative); Tissue Transglutaminase IgA Ab <2 U/mL (0-3); Tissue Transglutaminase IgG Ab 4 U/mL (0-5)
[2024-05-01 12:12] LABS: Reticulin IgA Antibody Negative titer (Neg:<1:2.5)
[2024-05-06 17:30] LABS: Calprotectin, Fecal 10 ug/g (0-120)
== END 2024-04-28 23:59 | disposition home or self-care (01) ==
PROVIDERS: PCP Internal Medicine; Visit Provider Internal Medicine
DX: R10.9 Unspecified abdominal pain (principal)
CPT/HCPCS: 36415; 83516; 83993; 86255; 86256

== ENCOUNTER 2024-06-02 13:58 | Outpatient (CLI) | payer OTHER, SELFPAY ==
--- NOTE | 2024-06-02 13:59 | US_ITS ---
PROCEDURE: US TRANSVAGINAL CLINICAL INDICATION: pelvic pain COMPARISON: US US TRANSVAGINAL from 05/06/2023 FINDINGS: Transvaginal sonographic images of the pelvis were obtained. UTERUS: 8.0cm x 5.3cmx 4.8 cm anteverted with a combined endometrial thickness of 12.6mm. scar is noted. LEFT OVARY: 2.1cmx1.9 cmx1.3cm with a volume of 2.6ml. There are multiple small peripheral follicles consistent with a polycystic ovary. RIGHT OVARY: 2.5 cmx 2.0cmx1.4cm with a volume of 3.6ml. There are several small follicles in the right ovary. Both ovaries are seen and appear normal. Doppler flow to both ovaries are seen. There is a small amount of fluid in the cul-de-sac. IMPRESSION: 1. Anteverted uterus normal in shape and size. The endometrium is premenstrual, trilaminar and measures 12.6 mm. 2. Both ovaries are seen and have multiple small follicles. The left ovary has a more polycystic appearance than the right ovary. 3. There is a small amount of fluid in the cul-de-sac. Dictated by: Jeanmarie Panda MD 06/02/2024 15:24 Jeanmarie Panda MD in [place] 06/02/2024 15:24
== END 2024-06-02 23:59 | disposition home or self-care (01) ==
LOC: RAD 13:59
PROVIDERS: PCP Internal Medicine; Visit Provider Obstetrics & Gynecology
DX: R10.2 Pelvic and perineal pain (principal)
CPT/HCPCS: 76830

== ENCOUNTER 2024-08-26 13:37 | Emergency (ER) | payer SELFPAY ==
[2024-08-26 13:39] VITALS: BP 122/78; PULSE 84; RESP 12; TEMP 36.8; O2SAT 99; BMI 25.2
[2024-08-26 13:53] VITALS: PULSE 78; O2SAT 99
--- NOTE | 2024-08-26 14:01 | HMH.EDGENADL ---
Discharge Plan Disposition Patient Disposition: Home, Self-Care Condition: Good Prescriptions Prescriptions: No Action norethindrone (contraceptive) 0.35 mg tablet 0.35 mg PO DAILY prochlorperazine maleate 5 mg tablet 5 mg PO TID PRN (Reason: nausea and vomiting) Qty: 30 2RF nitrofurantoin monohyd/m-cryst [Macrobid] 100 mg capsule 100 mg PO BID 5 Days Qty: 10 0RF Rx Instructions: must administer with a meal/food pantoprazole [Protonix] 40 mg tablet,delayed release (DR/EC) 40 mg PO DAILY Qty: 30 2RF Referrals Follow up/Referrals: Quoc Diaz DO [Primary Care Provider] - See instructions Activity Restrictions/Add. Instructions Additional Instructions/Restrictions: Follow-up with your PCP for any change or worsening in her symptoms or return to ER as needed. 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 by RN): pt presents to ED with c/o dirty glove exposure. pt reports that she was cleaning up from a colonoscopy, when she went to throw something in the trash when the gloves brushed her eye. pt thinks that she may have gotten the solution in her right eye. pt thinks her ring may have brushed against her eye. pt reports to washing her eye out, prior to arrival in ED History of Present Illness HPI narrative: Patient presents for chemical exposure. 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 She is not sure the sequence of events but she felt something hit her eye and noticed that she had a hole in her glove from her wedding ring. She does not describe any burning loss of vision irritation pain. She did flush her eye with normal saline prior to arrival in the ER. Related Data Home Medications ?Medication ?Instructions ?Recorded ?Confirmed norethindrone (contraceptive) 0.35 0.35 mg PO DAILY 01/12/24 05/27/24 mg tablet Previous Rx's ?Medication ?Instructions ?Recorded pantoprazole 40 mg tablet,delayed 40 mg PO DAILY #30 tabs 10/01/23 release (Protonix) prochlorperazine maleate 5 mg 5 mg PO TID PRN nausea and 01/29/24 tablet vomiting #30 tabs nitrofurantoin 100 mg PO BID 5 days #10 caps 06/07/24 monohydrate/macrocrystals 100 mg capsule (Macrobid) Allergies Allergy/AdvReac Type Severity Reaction Status Date / Time No Known Allergies Allergy Verified 05/27/24 15:42 PFS <KELLEY Aaron - Last Filed: 08/26/24 14:22> [facility] Disclaimer: The information contained in this section may have been updated after the patient was seen, as this information can be updated by other users. 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 (Updated 08/26/24 @ 14:12 by KELLEY Aaron) Abdominal pain Migraine Lichen sclerosus of vulva Heartburn Abnormal uterine bleeding Pelvic pain Surgical History Hx of tonsillectomy S/P wisdom tooth extraction History of salpingectomy S/P cholecystectomy History of classical section Family History Grandfather Cancer Diabetes Grandmother Diabetes Mother Thyroid disorder Diabetes Social History Smoking Status: Never smoker second hand exposure: Yes alcohol intake: never substance use type: denies use current occupational status: unemployed Travel in the last 8 weeks: None household members: spouse housing: house current occupational exposures/hazards: Yes caffeine: Yes Other 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 Have you received the Flu Vaccine for this season: No Have you received the Pneumonia Vaccine: No <KELLEY Aaron - Last Filed: 08/26/24 14:22> ROS Obtained: Yes Systems reviewed as appropriate & no additional complaints except as documented Physical Exam <KELLEY Aaron - Last Filed: 08/26/24 14:22> General General appearance: alert and in no apparent distress Respiratory Respiratory exam: Present normal lung sounds bilaterally Cardiovascular Cardiovascular exam: Present regular rate Neurological Exam Neurological exam: Present alert and oriented X3 Medical Decision Making <KELLEY Aaron - Last Filed: 08/26/24 14:22> Medical Records Screening: Per USPSTF and CDC recommendations, given the prevalence of disease in our region, it is our hospital?s policy to screen for HIV and viral Hepatitis for all patients aged 18 and over and those with ongoing risk factors. Julio Inquiry Pt receiving controlled substance: No Vital Signs: 08/26/24 13:39 08/26/24 13:53 08/26/24 14:27 Temperature 98.2 F 98.0 F Temperature Source Oral Pulse Rate 78 Pulse Rate [Left Radial] 84 78 Respiratory Rate 12 16 Blood Pressure 122/78 Blood Pressure [Right Arm] 122/78 Blood Pressure Mean [Right Arm] 92 02 Sat by Pulse Oximetry 99 99 Oxygen Delivery Method Room Air Room Air Medical Decision Narrative: In summary patient is a 24-year-old female who presents to the emergency department for evaluation of chemical exposure. Patient is hemodynamically stable upon arrival, afebrile. Physical exam of the left eye shows there is no obvious trauma erythema irritation edema or ecchymosis. Extraocular movements are intact pupils are equal round reactive to light accommodation there is no scleral erythema or edema. Differential diagnosis includes chemical burn versus corneal abrasion versus exposure to body fluids. Initial workup will be conducted with exam under fluorescein stain. Initial interventions include normal saline irrigation. Initial workup performed by me and exam under fluorescein stain shows no evidence of corneal abrasion laceration no scleral erythema no scleral edema no foreign body. Given this patient is appropriate for discharge with follow-up per hospital policy. <Farhad Hawk MD - Last Filed: 08/29/24 15:11> Vital Signs: 08/26/24 13:39 08/26/24 13:53 08/26/24 14:27 Temperature 98.2 F 98.0 F Temperature Source Oral Pulse Rate 78 Pulse Rate [Left Radial] 84 78 Respiratory Rate 12 16 Blood Pressure 122/78 Blood Pressure [Right Arm] 122/78 Blood Pressure Mean [Right Arm] 92 02 Sat by Pulse Oximetry 99 99 Oxygen Delivery Method Room Air Room Air Medical Decision Narrative: In summary patient is a 24-year-old female who presents to the emergency department for evaluation of chemical exposure. Patient is hemodynamically stable upon arrival, afebrile. Physical exam of the left eye shows there is no obvious trauma erythema irritation edema or ecchymosis. Extraocular movements are intact pupils are equal round reactive to light accommodation there is no scleral erythema or edema. Differential diagnosis includes chemical burn versus corneal abrasion versus exposure to body fluids. Initial workup will be conducted with exam under fluorescein stain. Initial interventions include normal saline irrigation. Initial workup performed by me and exam under fluorescein stain shows no evidence of corneal abrasion laceration no scleral erythema no scleral edema no foreign body. Given this patient is appropriate for discharge with follow-up per hospital policy. I was consulted by the JOSIANE, and we discussed the complexity of the problems being addressed. I approved the treatment and management plan for this patient's care in the Emergency Department, thus performing a substantive portion of the medical decision making. Farhad Hawk MD Critical Care <KELLEY Aaron - Last Filed: 08/26/24 14:22> Critical Care Time Critical Care Time: No
[2024-08-26 14:27] VITALS: BP 122/78; PULSE 78; RESP 16; TEMP 36.7
== END 2024-08-26 14:28 | disposition home or self-care (01) ==
PROVIDERS: Emergency Provider Emergency Medicine; PCP Internal Medicine
DX: H53.141 Visual discomfort, right eye (principal); Z77.098 Contact with and (suspected) exposure to other hazardous, chiefly nonmedicinal, chemicals
CPT/HCPCS: 99282

== ENCOUNTER 2024-10-17 09:36 | Emergency (ER) | payer OTHER, SELFPAY ==
[2024-10-17 10:10] VITALS: BP 116/74; PULSE 71; RESP 18; TEMP 36.8; O2SAT 100; BMI 25.5
--- NOTE | 2024-10-17 10:40 | EXP.UTC ---
Discharge Plan Disposition Patient Disposition: Home, Self-Care Condition: Good Prescriptions Prescriptions: New fluconazole [Diflucan] 100 mg tablet 100 mg PO ONCE Qty: 1 1RF Rx Instructions: 1 tablet now and may repeat after 3 days if no improvement cephalexin 500 mg tablet 500 mg PO BID 7 Days Qty: 14 0RF No Action norethindrone (contraceptive) 0.35 mg tablet 0.35 mg PO DAILY Referrals Follow up/Referrals: Quoc Diaz, [Primary Care Provider] - See instructions Activity Restrictions/Add. Instructions Additional Instructions/Restrictions: Increase fluids, water and not soda or tea. Can drink cranberry juice or cranberry extract. Wipe front to back Wear cotton underwear Empty bladder after intercourse Start antibiotics immediately and make sure you take the full course although you may start to see improvement over the next 48 hours. You can eat yogurt or take probiotics to decrease diarrhea or yeast infection caused by the antibiotic Be sure to follow-up anytime for new or worsening symptoms in 48 hours for wound urine culture results be sure to let you PCP no recent urine for culture so they can request records and ensure that you have appropriate antibiotic if you are not getting better or getting worse. If symptoms worsen or do not improve return or be seen in the ER. Follow-up with primary care this week. Apply Vaseline or A&E ointment to vaginal area. Clinical Impressions Clinical Impression: Vaginal yeast infection UTI (urinary tract infection) Qualifiers: Urinary tract infection type: acute cystitis Hematuria presence: with hematuria Qualified Code(s): N30.01 - Acute cystitis with hematuria Instructions Patient Instructions: DI for Vaginal Yeast Infection, DI for Urinary Tract Infection (UTI) Print Language Print Language: Turkmen Discharge ED Provider: Cleve ([facility])Alfredo [facility] [place] HPI General Stated complaint: uti Mode of Arrival: Ambulatory Source of Information: Patient Limitations: No Limitations Time Seen by Provider: 10/17/24 10:40 Description of Symptoms (Recalled from Triage Doc. by RN): PATIENT C/O BURNING AND ITCHING TO GENITAL AREA SINCE YESTERDAY HEENT Symptoms (Recalled from RN notes): No Resp Symptoms (Recalled from RN notes): No Skin Symptoms (Recalled from RN notes): No MS Symptoms (Recalled from RN notes): No Functional Status (Recalled from RN notes): WNL History of Present Illness Provider Complaint: 24-year-old female presents for burning with urination and itching. Patient states she was burning already but it got worse last night after using Hibiclens. Related Data Home Medications ?Medication ?Instructions ?Recorded ?Confirmed norethindrone (contraceptive) 0.35 0.35 mg PO DAILY 01/12/24 10/17/24 mg tablet Previous Rx's ?Medication ?Instructions ?Recorded cephalexin 500 mg tablet 500 mg PO BID 7 days #14 tabs 10/17/24 fluconazole 100 mg tablet 100 mg PO ONCE #1 tab 10/17/24 (Diflucan) Allergies Allergy/AdvReac Type Severity Reaction Status Date / Time No Known Allergies Allergy Verified 10/04/24 15:07 Worker's Comp Is this a Worker's Comp case?: No [facility] Disclaimer: The information contained in this section may have been updated after the patient was seen, as this information can be updated by other users. 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 CLERK) Smoking Status: Never smoker second hand exposure: Yes alcohol intake: never substance use type: denies use current occupational status: unemployed Travel in the last 8 weeks: None household members: spouse housing: house current occupational exposures/hazards: Yes caffeine: Yes ROS Obtained: Yes Systems reviewed as appropriate & no additional complaints except as documented Physical Exam General General appearance: alert and in no apparent distress Eye Eye exam: Present normal appearance ENT ENT exam: Present normal exam and normal oropharynx Respiratory Respiratory exam: Present normal lung sounds bilaterally Cardiovascular Cardiovascular exam: Present regular rate and normal rhythm Neurological Exam Neurological exam: Present alert and oriented X3 Skin Skin exam: Present warm and intact Medical Decision Making Medical Records Medical records reviewed: Yes I reviewed the patient's medical records. Screening: Per USPSTF and CDC recommendations, given the prevalence of disease in our region, it is our hospital?s policy to screen for HIV and viral Hepatitis for all patients aged 18 and over and those with ongoing risk factors. Julio Inquiry Pt receiving controlled substance: No Julio was queried for this patient: No Vital Signs: 10/17/24 10:10 Temperature 98.2 F Temperature Source Oral Pulse Rate [Left Brachial] 71 Respiratory Rate 18 Blood Pressure [Left Arm] 116/74 Blood Pressure Mean [Left Arm] 88 Blood Pressure Source [Left Arm] Automatic Cuff Blood Pressure Position [Left Arm] Sitting 02 Sat by Pulse Oximetry 100 Oxygen Delivery Method Room Air Lab Data Lab results reviewed: Yes I reviewed the patient's lab results.
[2024-10-17 10:56] LABS: Apearance,Urine Cloudy (Clear); Bilirubin,Urine Negative (Negative); Blood, Urine 1+ (Negative); Color,Urine Dark Yellow (Yellow); Glucose,Urine (UA) Negative (Negative); Ketones,Urine Negative (Negative); Protein,Urine Negative (Negative); UTC Leukocyte Esterase,Urine 1+ (Negative); UTC Nitrate,Urine Negative (Negative); Urobilinogen,Urine 0.2 EU/dl (0.2)
[2024-10-17 11:00] VITALS: BP 116/74; PULSE 71; RESP 18; TEMP 36.8; O2SAT 100
== END 2024-10-17 11:02 | disposition home or self-care (01) ==
PROVIDERS: Emergency Provider Nurse Practitioner Family; PCP Internal Medicine
DX: N30.01 Acute cystitis with hematuria (principal)
CPT/HCPCS: 81003; 87086; 99213; G0381

== ENCOUNTER 2024-10-27 08:11 | Emergency (ER) | payer OTHER, SELFPAY ==
[2024-10-27 08:12] VITALS: BP 125/76; PULSE 80; RESP 20; TEMP 36.4; O2SAT 99; BMI 25.2
[2024-10-27 08:28] LABS: Microscopic, Urine URINE MICROSCOPIC (MICROSCOPIC)
[2024-10-27 08:35] LABS: Appearance,Urine CLEAR (Clear); Bilirubin,Urine Negative (Negative); Blood, Urine Negative (Negative); Color,Urine YELLOW (Yellow); Glucose,Urine (UA) Negative (Negative); Ketones,Urine Negative (Negative); Leukocyte Esterase,Urine 1+ (Negative); Nitrate,Urine Negative (Negative); Protein,Urine Negative (Negative); Specific Gravity, Urine >= 1.030 (1.005-1.030); Urobilinogen,Urine 0.2 EU/dl (0.2)
[2024-10-27 08:39] LABS: Urine Pregnancy, HCG Qual. Negative (Negative)
--- NOTE | 2024-10-27 08:40 | US_ITS ---
PROCEDURE INFORMATION: Exam: US Pelvis, Transvaginal, Non-Obstetric Exam date and time: 10/27/2024 8:58 AM Age: 24 years old Clinical indication: Pelvic pain; Additional info: Rlq pain, h/o ovarian cysts TECHNIQUE: Imaging protocol: Real-time transvaginal pelvic (non-obstetric) ultrasound with image documentation. Transvaginal imaging was used for better evaluation of the endometrium, adnexa, and/or cervix. COMPARISON: US TRANSVAGINAL 06/02/2024 2:29 PM FINDINGS: Uterus: 10 x 4.7 x 5.9 cm. Endometrium 9 mm. Cervical nabothian cyst. Right ovary/adnexa: 2.7 x 3.3 x 2.5 cm. Doppler arterial flow. Cyst versus dominant follicle 2.3 cm in maximal dimension. Left ovary/adnexa: 1.6 x 1.6 x 1.8 cm. Doppler arterial flow. Numerous follicles. Urinary bladder: Urinary bladder is limited. Intraperitoneal space: No free fluid. Other findings: trace/small amount of fluid within the pelvis. IMPRESSION: Right ovary: Cyst versus dominant follicle 2.3 cm in maximal dimension. trace/small amount of fluid within the pelvis.
--- NOTE | 2024-10-27 08:40 | CT_ITS ---
FINAL REPORT TECHNIQUE: Oral and IV contrast enhanced exam. Coronal and sagittal reconstructions were obtained and reviewed. This study was performed with techniques to keep radiation doses as low as reasonably achievable, (ALARA). Individualized dose reduction techniques using automated exposure control or adjustment of mA and/or kV according to the patient''s size were employed. CLINICAL HISTORY: RLQ pain COMPARISON: None FINDINGS: Abdomen: No acute density is seen within the lung bases. Status post cholecystectomy. Solid abdominal organs are unremarkable. Gastric distention is probably related to recent meal. No bowel obstruction is present. There is no free air. No fluid collection is seen. There is no adenopathy. Pelvis: The appendix is normal. Pelvic bowel loops unremarkable. There is prominent left periuterine vein which may be related to pelvic venous congestion or venous reflux disease. The uterus and ovaries are unremarkable. There is no free fluid. No pelvic mass is seen. IMPRESSION: No evidence of appendicitis or acute findings. Reviewed, Interpreted and Dictated by Jorge De La Garza MD Transcribed by Ana Bagley Authenticated and [facility]
[2024-10-27] MEDS: ONDANSETRON 4MG/2ML VIAL 4 MG IV (08:48)
[2024-10-27] MEDS: ACETAMINOPHEN 1,000MG/100ML VIAL 1000 MG IV (08:48)
[2024-10-27] MEDS: KETOROLAC 30MG/ML VIAL 15 MG IV (08:48)
[2024-10-27 08:50] LABS: Albumin Level 4.4 g/dl (3.5-5.0); Chloride 107 mmol/L (98-107); Sodium 137 mmol/L (136-145)
--- NOTE | 2024-10-27 08:51 | ED_ITS ---
Discharge Plan Disposition Patient Disposition: Home, Self-Care Condition: Good Prescriptions Prescriptions: New ketorolac 10 mg tablet 10 mg PO Q8H PRN (Reason: pain) 4 Days Qty: 12 0RF ondansetron 4 mg tablet,disintegrating 4 mg PO Q8H PRN (Reason: nausea and vomiting) 4 Days Qty: 12 0RF No Action cephalexin 500 mg capsule 500 mg PO DAILY Referrals Follow up/Referrals: Floresita Austin DO [Staff Physician] - See instructions Quoc Diaz DO [Primary Care Provider] - See instructions Activity Restrictions/Add. Instructions Additional Instructions/Restrictions: You were evaluated in the emergency department today. You were found to have a cyst on your right ovary. At this time, there is no evidence of torsion or lack of blood flow to the ovary. Please follow-up closely with gynecology for reassessment. 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 You may also take Tylenol every 4-6 hours at home as needed for pain. Return to the emergency department right away for new or worsening symptoms, such as significant and sudden worsening in pain. Clinical Impressions Clinical Impression: Cyst of right ovary Stand Alone Forms Stand Alone Forms: Work/School Release Instructions Patient Instructions: DI for Ovarian Cyst, DI for Acute Abdominal Pain Print Language Print Language: Luxembourgish Discharge ED Provider: Leela Dale General Adult HPI General Chief complaint: Abdominal Pain Stated complaint: Lower R abd pain Time Seen by Provider: 10/27/24 08:13 Mode of Arrival: Ambulatory Source of Information: Patient Limitations: No Limitations Description of Symptoms (Recalled from ER Triage Doc. by RN): pt had rlq pain started yesterday and has continued to get worse, wants to be ruled out for an appy, pt does have hx of ovarian cyst, denies any fever but does have nausea History of Present Illness HPI narrative: This patient is a 24-year-old female with a history of ovarian cysts, bilateral salpingectomy, prior cholecystectomy presenting to the emergency department for evaluation with concern for right lower quadrant abdominal pain. Patient reports that it started yesterday in the morning and has continued to get worse. She denies fevers, chills, vomiting, changes in bowel movements, dysuria, hematuria, abnormal vaginal discharge or bleeding. She does have vomiting. She denies concerns for sexually transmitted infections. Pain is constant but she has twinges in which the pain is much worse. She is worried about appendicitis versus ovarian cyst. Of note, she did have evaluation by gynecology 10/22/2024 for IUD placement for abnormal uterine bleeding, however they were unable to pass this due to cervical stenosis. Related Data Home Medications ?Medication ?Instructions ?Recorded ?Confirmed cephalexin 500 mg capsule 500 mg PO DAILY 10/22/24 10/22/24 Previous Rx's ?Medication ?Instructions ?Recorded ketorolac 10 mg tablet 10 mg PO Q8H PRN pain 4 days #12 10/27/24 tabs ondansetron 4 mg disintegrating 4 mg PO Q8H PRN nausea and 10/27/24 tablet vomiting 4 days #12 tabs Allergies Allergy/AdvReac Type Severity Reaction Status Date / Time No Known Allergies Allergy Verified 10/22/24 10:43 [facility] Disclaimer: The information contained in this section may have been updated after the patient was seen, as this information can be updated by other users. 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 Abdominal pain Migraine Lichen sclerosus of vulva Heartburn Abnormal uterine bleeding Pelvic pain Surgical History Hx of tonsillectomy S/P wisdom tooth extraction History of salpingectomy S/P cholecystectomy History of classical section Family History Grandfather Cancer Diabetes Grandmother Diabetes Mother Thyroid disorder Diabetes Social History Smoking Status: Never smoker second hand exposure: Yes alcohol intake: never substance use type: denies use current occupational status: unemployed Travel in the last 8 weeks: None household members: spouse housing: house current occupational exposures/hazards: Yes caffeine: Yes Have you lived/traveled outside US in past 30 days?: No Contact w/someone who lives/traveled outside US past 30 days?: No Exposure to someone with infectious disease in past 14 days?: No Do you have a fever (greater than 100.4 F or 38 C)?: No Have you tested positive for COVID-19: No Exposed to someone with COVID-19 in past 14 days?: No Do you have a sore throat?: No Do you have a cough?: No Do you have any weakness?: No Do you have any diarrhea?: No Are you experiencing any unusual bleeding?: No Do you have any muscle aches/pain?: No Do you have any abdominal pain?: Yes Are you experiencing loss of taste or smell?: No Other 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 Have you received the Flu Vaccine for this season: No Have you received the Pneumonia Vaccine: No ROS Obtained: Yes All systems reviewed & no additional complaints except as documented Physical Exam General General appearance: alert and in no apparent distress Comment: Uncomfortable appearing Head Head exam: atraumatic and normocephalic Eye Eye exam: Present normal appearance, PERRL and EOMI ENT ENT exam: Present normal exam, normal oropharynx, mucous membranes moist and normal external ear exam Neck Neck exam: Present normal inspection, full ROM and trachea midline; Absent tenderness Chest Chest inspection: Present normal inspection and symmetric chest wall rise; Absent tenderness Respiratory Respiratory exam: Present normal lung sounds bilaterally; Absent respiratory distress, wheezes, stridor or accessory muscle use Cardiovascular Cardiovascular exam: Present regular rate and normal rhythm Abdominal Exam Abdominal exam: Present soft, tenderness (Right lower quadrant) and guarding (Right lower quadrant); Absent distention or rebound Extremities Exam Extremities exam: Present normal inspection, full ROM and normal capillary refill; Absent tenderness or edema Back Exam Back exam: Present normal inspection and full ROM; Absent tenderness Neurological Exam Neurological exam: Present alert, oriented X3, CN II-XII intact and normal gait; Absent motor sensory deficit Psychiatric Psychiatric exam: Present normal affect and normal mood Skin Skin exam: Present warm and dry Medical Decision Making Medical Records Medical records reviewed: Yes I reviewed the patient's medical records. Screening: Per USPSTF and CDC recommendations, given the prevalence of disease in our region, it is our hospital?s policy to screen for HIV and viral Hepatitis for all patients aged 18 and over and those with ongoing risk factors. Julio Inquiry Pt receiving controlled substance: No Vital Signs: 10/27/24 08:12 10/27/24 09:27 10/27/24 09:31 Temperature 97.6 F Temperature Source Oral Pulse Rate 71 76 Pulse Rate [Right Radial] 80 Respiratory Rate 20 Blood Pressure 102/59 L 103/63 L Blood Pressure [Right Arm] 125/76 Blood Pressure Mean [Right Arm] 92 02 Sat by Pulse Oximetry 99 99 99 Oxygen Delivery Method Room Air 10/27/24 10:00 10/27/24 10:23 Temperature 97.8 F Temperature Source Oral Pulse Rate 69 86 Pulse Rate [Right Radial] Respiratory Rate 18 Blood Pressure 105/66 L 105/66 L Blood Pressure [Right Arm] Blood Pressure Mean [Right Arm] 02 Sat by Pulse Oximetry 100 Oxygen Delivery Method Lab Data Lab results reviewed: Yes I reviewed the patient's lab results. Lab Results 10/27/24 08:18: Urine Color Yellow, Urine Appearance Clear, Urine pH 6.0, Ur Specific [place] >= 1.030, Urine Protein Negative, Urine Glucose (UA) Negative, Urine Ketones Negative, Urine Blood Negative, Urine Nitrate Negative, Urine Bilirubin Negative, Urine Urobilinogen 0.2, Ur Leukocyte Esterase 1+ A, Urine RBC 3-5, Urine WBC 10-20, Ur Squamous Epith Cells 5-10, Urine Bacteria 1+, Urine HCG, Qual Negative 10/27/24 08:28: WBC 6.8, RBC 4.96, Hgb 13.3, Hct 42.4, MCV 85.5, MCH 26.8 L, M CHC 31.4 L, RDW 12.7, Plt Count 253, MPV 9.6, Neut % (Auto) 62.1, Lymph % (Auto) 30.1, [place] % (Auto) 5.9, Eos % (Auto) 0.9, Baso % (Auto) 0.9, Neut # (Auto) 4.2, Lymph # (Auto) 2.0, [place] # (Auto) 0.4, Eos # (Auto) 0.1, Baso # (Auto) 0.1, Sodium 137, Potassium 4.0, Chloride 107, Carbon Dioxide 28, Anion Gap 6.0, BUN 18 H, Creatinine 0.90, Estimated Creat Clear 116, Estimated GFR 76, Est GFR ( Amer) 92, Glucose 80, Calcium 9.3, Total Bilirubin 0.6, AST 33, ALT 22, Alkaline Phosphatase 65, Total Protein 7.2, Albumin 4.4, Globulin 2.8, Albumin/Globulin Ratio 1.6, Lipase 84 10/27/24 08:28 10/27/24 08:28 Orders (Tests/Meds): ED MEDICATIONS Discontinued Medications Generic Name Dose Route Start Last Admin Trade Name Freq PRN Reason Stop Dose Admin Acetaminophen 1,000 mg 10/27/24 08:40 10/27/24 08:48 Acetaminophen 1,000mg/100ml Vial IV 10/27/24 08:41 1,000 mg ONCE ONE Administration Iopamidol 75 ml 10/27/24 09:24 10/27/24 09:25 Iopamidol-370 (76%);100ml Bottle IV 10/27/24 09:25 75 ml ONCE ONE Administration Ketorolac Tromethamine 15 mg 10/27/24 08:40 10/27/24 08:48 Ketorolac 30mg/Ml Vial IV 10/27/24 08:41 15 mg ONCE ONE Administration Ondansetron HCl 4 mg 10/27/24 08:40 10/27/24 08:48 Ondansetron 4mg/2ml Vial IV 10/27/24 08:41 4 mg ONCE ONE Administration Sodium Chloride 10 ml 10/27/24 09:24 10/27/24 09:25 Sodium Chloride 0.9% 10ml Syr (Rad Only) IV 10/27/24 09:25 10 ml ONCE ONE Administration ORDERS Category Date Time Status CT abdomen pelvis w con Stat Cat Scan 10/27/24 08:40 Completed US transvaginal Stat Exams 10/27/24 08:40 Completed Complete Blood Count Auto Diff Stat Lab 10/27/24 08:28 Completed Comprehensive Metabolic Panel Stat Lab 10/27/24 08:28 Completed Lipase Stat Lab 10/27/24 08:28 Completed UA [Urinalysis and Microscopic] Stat Lab 10/27/24 08:18 Completed Urine , HCG Qual. Stat Lab 10/27/24 08:18 Completed Urine Culture Stat Micro 10/27/24 08:18 Received Medical Decision Narrative: In summary, this patient is a 24-year-old female presenting to the Emergency Department for evaluation of right lower quadrant abdominal pain and nausea. Differential diagnoses considered include but are not limited to appendicitis, ovarian cyst, ovarian torsion, cystitis, pyelonephritis, ureterolithiasis. Ruling out the most morbid conditions drove assessment. I reviewed patient's past medical records and noted prior salpingectomy as well as evaluation by gynecology 10/22/2024 with attempted IUD placement for abnormal uterine bleeding, which failed due to cervical stenosis. On exam, the patient is sitting upright. She is uncomfortable appearing. She has right lower quadrant tenderness with voluntary guarding but no rebound or rigidity. Vitals are reassuring on cardiac telemetry. Workup included CBC, CMP, lipase, urinalysis, urine , urine gonorrhea and chlamydia, and CT abdomen pelvis with IV contrast. She was given IV Toradol, acetaminophen, and Zofran for symptomatic improvement. I independently interpreted ultrasound and CT scan prior to the radiologist read and noted small right ovarian cyst versus dominant follicle. Please see their read for final interpretation. No concerns for appendicitis. Labs were obtained that demonstrated reassuring CBC with no significant leukocytosis. Chemistry reassuring as well. Urine is contaminated with squamous cells, and she denies any significant dysuria. Will defer treatment for possible urinary tract infection at this time given lack of urinary symptoms, but culture was sent and is pending. She will be prescribed antibiotic if the culture comes back positive. On reassessment, patient had good improvement after administration of Toradol and Tylenol. She does have a dominant follicle versus ovarian cyst on the right, but it is less than 5 cm and she has good flow noted on ultrasound so low concern for torsion at this time. This was explained to the patient. No concerns for appendicitis based on workup. Ultimately, I feel she is appropriate for discharge with close follow-up with gynecology. Strict return precautions were given as well as prescriptions for Toradol and Zofran as well as instructions for supportive management. Critical Care Critical Care Time Critical Care Time: No
--- NOTE | 2024-10-27 08:52 | PC.NURSE ---
pt to CT scan
[2024-10-27 08:53] LABS: Alanine Aminotransferase 22 U/L (12-78); Albumin/Globulin Ratio 1.6 (1.1-1.8); Alkaline Phosphatase 65 U/L (38-126); Aspartate Amino Transferase 33 U/L (14-36); Bilirubin,Total 0.6 mg/dl (0.2-1.3); Blood Urea Nitrogen 18 mg/dl (7-17); Calcium 9.3 mg/dl (8.4-10.2); Carbon Dioxide 28 mmol/L (22.0-30.0); Creatinine Clearance Estimated 116 mL/min (50-200); Estimated Glomerular Filt Rate 76 ml/min (>60); GFR (African American) 92 ML/MIN (>60); Globulin 2.8 g/dL (1.3-3.2); Glucose 80 mg/dl (74-100); Lipase 84 U/L (23-300); Total Protein,Serum 7.2 g/dl (6.3-8.2)
[2024-10-27 09:01] LABS: Basophils % 0.9 % (0.1-2.0); Eosinophils % 0.9 % (0.1-12.0); Hematocrit 42.4 % (37.0-47.0); Hemoglobin 13.3 g/dL (12.2-16.2); Lymphocytes % 30.1 % (10-50); Mean Corpuscular HGB Conc 31.4 g/dL (31.8-35.4); Mean Corpuscular Hemoglobin 26.8 pg (27.0-31.2); Mean Corpuscular Volume 85.5 fl (81-99); Mean Platelet Volume 9.6 fl (7.4-10.4); Monocytes % 5.9 % (1.7-9.3); Neutrophils # 4.2 K/mm3 (1.8-7.8); Neutrophils % 62.1 % (37.0-80.0); Platelet Count 253 K/mm3 (142-424); Red Blood Count 4.96 M/mm3 (4.20-5.40); Red Cell Distribution Width 12.7 % (11.5-17.5); White Blood Count 6.8 K/mm3 (4.8-10.8)
[2024-10-27 09:02] LABS: Basophils # 0.1 K/mm3 (0-0.2); Eosinophils # 0.1 K/mm3 (0.0-0.4); Monocytes # 0.4 K/mm3 (0.1-1.0)
[2024-10-27 09:05] LABS: Bacteria,Urine 1+ /lpf
[2024-10-27] MEDS: IOPAMIDOL-370 (76%);100ML BOTTLE 75 ML IV (09:25)
[2024-10-27] MEDS: SODIUM CHLORIDE 0.9% 10ML SYR (RAD ONLY) 10 ML IV (09:25)
[2024-10-27 09:27] VITALS: BP 102/59; PULSE 71; O2SAT 99
[2024-10-27 09:31] VITALS: BP 103/63; PULSE 76; O2SAT 99
[2024-10-27 10:00] VITALS: BP 105/66; PULSE 69; O2SAT 100
[2024-10-27 10:23] VITALS: BP 105/66; PULSE 86; RESP 18; TEMP 36.6; O2SAT 98
== END 2024-10-27 10:24 | disposition home or self-care (01) ==
PROVIDERS: Emergency Provider Emergency Medicine; PCP Internal Medicine
DX: N83.201 Unspecified ovarian cyst, right side (principal); R10.31 Right lower quadrant pain; R11.0 Nausea
CPT/HCPCS: 74177; 76830; 80053; 81001; 81025; 83690; 85025; 87086; 96374; 96375; 99285; J0131; J1885; J2405; Q9967

== ENCOUNTER 2025-01-20 08:45 | Outpatient (CLI) | payer OTHER, SELFPAY ==
--- NOTE | 2025-01-20 08:45 | US_ITS ---
PROCEDURE: US TRANSVAGINAL CLINICAL INDICATION: Ovarian Pain COMPARISON: CT CT ABDOMEN PELVIS W CON from 08/13/2021 US US TRANSVAGINAL from 05/06/2023 US US TRANSVAGINAL from 06/02/2024 US US TRANSVAGINAL from 10/27/[address] ABDOMEN PELVIS W CON from 10/27/2024 FINDINGS: Transvaginal sonographic images of the pelvis were obtained. UTERUS: 9.1cm x 5.2cmx 4.7 cm anteverted with a combined endometrial thickness of 7.4mm. The endometrium is homogeneous. There is a tiny hyperechoic area in the upper cervix. LEFT OVARY: 2.6 cmx2.4cmx1.7cm with a volume of 5.4ml. There are multiple small peripheral follicles. There is questionable pelvic congestion adjacent to the left ovary. RIGHT OVARY: 2.6 cmx 1.4cmx1.7 cm with a volume of 3.3ml. There are multiple small peripheral ovaries. The largest measures 0.7 cm. Both ovaries are seen and appear polycystic. Doppler flow to both ovaries are seen. There is trace fluid in the cul-de-sac. IMPRESSION: 1. Anteverted uterus normal in shape and upper limits in size. The endometrium is normal measuring 7.4 mm. 2. Both ovaries are seen and appear polycystic. 3. There appears to be some pelvic congestion around the left ovary. 4. There is trace fluid in the cul-de-sac. Dictated by: Jeanmarie Panda MD 01/20/2025 18:44 Jeanmarie Panda MD in [place] 01/20/2025 18:44
== END 2025-01-20 23:59 | disposition home or self-care (01) ==
LOC: RAD 08:45
PROVIDERS: PCP Internal Medicine; Visit Provider Obstetrics & Gynecology
DX: N83.201 Unspecified ovarian cyst, right side (principal)
CPT/HCPCS: 76830

== ENCOUNTER 2025-04-01 12:03 | Outpatient (CLI) | payer OTHER, SELFPAY ==
--- OUTSIDE RECORDS SUMMARY | 2025-04-01 12:05 | XMS_ITS | Data Portability ---
Author Organization [facility] MARLA Gonzalez PERK[facility] CLOSED Address [address] [facility] [address] [place] [address] Assessment No assessment recorded. Plan of Treatment Reminders Order Date Submit Date Provider Last Modified By Organization Details Last Modified Time Details Appointments None recorded. Lab None recorded. Referral None recorded. Procedures None recorded. Surgeries None recorded. Imaging None recorded. Medication Orders dicyclomine 10 mg capsule 2023 024 [id number], [address], [address], 4 16:16:48 Patient TargetsNo targets recorded. Patient InstructionsNo instructions recorded. Reason for Referral None Reported. Procedures Surgical History Date Name Laterality Status Provider Name and Address Organization Details Recorded Time procedure on gallbladder completed [facility] 04/26/2024 15:39:14 section completed [facility] 04/26/2024 15:39:39 tubal occlusion completed [facility] 04/26/2024 15:39:48 Imaging Results None recorded. Procedure Notes None recorded. Medical Equipment None Reported. Allergies No known drug allergies Medications Name Sig Start Date Stop Date Status Note LastModified by Organization Details LastModified Time dicyclomine 10 mg capsule Take 1 capsule 4 times a day by oral route as needed for 30 days. 024 active Not Available Not Available Not Avai lable Vitals Date Recorded Respiratory rate Body height Body mass index (BMI) Body weight Heart rate Systolic blood pressure Diastolic blood pressure Provider Name and Address Organization Details Last Updated DateTime 4 16 /min 200.66 cm 19 kg/m2 10017.4 6 g 103 /min 133 mm[Hg] 117 mm[Hg] Kwabena Barnard [facility] 15:37:26 Social History Question Answer Notes LastModified by Organizat ion Details LastModified Time Tobacco Smoking Status Never Smoker Kwabena Barnard [facility] 04/26/2024 15:40:13 What Was The Date Of Your Most Recent Tobacco Screening? 04/26/2024 [email or web address] Information not available 04/26/2024 What Is Your Relationship Status? [email or web address] Information not available 04/26/2024 Has Tobacco Cessation Counseling Been Provided? No [email or web address] Information not available 04/26/2024 Sex: Unknown Functional Status Question Answer Note LastModified by Organizat ion Details LastModified Time Do you use any illicit or recreational drugs? No [email or web address] Information not available 04/26/2024 Do you or have you ever used any other forms of tobacco or nicotine? No [email or web address] Information not available 04/26/2024 What is your level of alcohol consumption? None [email or web address] Information not available 04/26/2024 Are you currently employed? 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 Family History Relationship Description Onset Age of this Age Resolved Age Notes LastModified by Organization Details LastModified Time Unspecified Relation Diabetes mellitus [email or web address] Not available 04/26 15:41:06 Unspecified Relation Headache Not available 04/26 15:41:28 Unspecified Relation Myocardial infarction [email or web address] Not available 04/10 15:41:48 Unspecified Relation Hernia of abdominal cavity [email or web address] Not available 04/26 15:42:26 Unspecified Relation Family history of stroke [email or web address] Not available 04/26 15:42:40 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 Condition Response Acid Reflux (GERD) Y Headaches Y Gynecological HistoryNo gynecological history recorded. Obstetrics History GPAL:G 0 P 0 0 0 0 Past Encounters Encounter ID Performer Location Encounter Start Date Encounter Closed Date Diagnosis/Indication Diagnosis SNOMED-CT Code Diagnosis ICD10 Code Diagnosis Note [id number] EMORY HILL MD [facility] [address] [facility], [address] [place] [address] 04/26/2024 15:11:45 04/26/2024 16:17:00 Abdominal pain 45532262 R10.9 Will check labs with celiac screen, CRP, ESR, stool testing for H. pylori stool antigen, calprotect in, fecal elastase, GiardiaWil l start dicyclomin e 10 mg 3-4 times a day as neededI have asked her to start a daily probiotic with align or FlorastorI have also asked her to start MiraLAX once daily, can take every other day if needed.Gibson l need to stay hydrated with water at least 40 to 60 ounces dailyI am going to need to review prior records from [facility] Constipation [id number] K5 9.00 Abdominal bloating 65898 9008 R14.0 Nausea and vomiting 1693 2000 R11.2 Health Concerns Section Related Observation LastModified by Organization Detai ls LastModified Time None Recorded Concern Status LastModified by Organization Details LastModified Time None Recorded Advance Directives Directive None Recorded Payers Insurance Date Sequence Insurance Name Policy Number Policy Goins Covered Member ID Goins Member ID Guarantor Name 04/26/2024 1 [facility] [id number] Chelita Borjas [id number] Chelita Borjas Notes Date Note Type Note Provider Name and Address Organization Details Recorded Time 04/26/2024 text/html Reason for new patient visit: Abdominal pain, nausea and vomitingSelf-refer red The patient is a 23-year-old who is being seen in the office today for abdominal pain, nausea and vomiting. The patient has no chronic medical conditions. The patient has had the symptoms for 2 months or more. The patient was having nausea and vomiting but these symptoms resolved. Currently she is experiencing lower abdominal cramping. The symptoms can be worse after eating. She has a history of chronic constipation. She has a bowel movement about every 3 days. At times she has to struggle to evacuate stools and stools can be hard. She relates having had constipation since her gallbladder removed in 2021. She reports an EGD at [facility] for evaluation of abdominal pain in the past, reportedly normal. She denies diarrhea, hematochezia, or nocturnal GI symptoms. She was using Zofran as needed, but has not had to use it for several weeks. She describes her abdominal pain as feelings of having contractions. There is no family history of ulcerative colitis or Crohn's disease. She does not use NSAIDs. Does not smoke cigarettes or smoke marijuana. There has been no weight loss. She has occasional abdominal bloating. She feels that abdominal pain is improved after a bowel movement. She reports a prior history of thyroid screening normal. She has never been screened for celiac disease. She was recently seen by Dr. Bautista in general surgery at [facility] for her symptoms and was told that she needed to see a superintendent transportation . EMORY HILL MD [address] [place] [address], [phone], [facility] 04/26/2024 16:16:45 OBGyn Episode No OBEpisode recorded.
[2025-04-01 12:33] LABS: Basophils # 0.1 K/mm3 (0-0.2); Basophils % 0.7 % (0.1-2.0); Eosinophils % 0.4 % (0.1-12.0); Hematocrit 43.4 % (37.0-47.0); Hemoglobin 13.5 g/dL (12.2-16.2); Immature Granulocytes # 0.02 10^3uL; Immature Granulocytes % 0.2 %; Lymphocytes % 32.8 % (10-50); Mean Corpuscular HGB Conc 31.1 g/dL (31.8-35.4); Mean Corpuscular Hemoglobin 26.6 pg (27.0-31.2); Mean Corpuscular Volume 85.4 fl (81-99); Mean Platelet Volume 8.7 fl (7.4-10.4); Monocytes # 0.3 K/mm3 (0.1-1.0); Monocytes % 3.4 % (1.7-9.3); Neutrophils # 5.7 K/mm3 (1.8-7.8); Neutrophils % 62.5 % (37.0-80.0); Nucleated Red Blood Cells # 0 10^3/uL; Nucleated Red Blood Cells % 0 %; Platelet Count 340 K/mm3 (142-424); Red Blood Count 5.08 M/mm3 (4.20-5.40); Red Cell Distribution Width 11.9 % (11.5-17.5); Red Cell Distribution Width-SD 37.2 fL; White Blood Count 9.1 K/mm3 (4.8-10.8)
[2025-04-01 13:13] LABS: Alanine Aminotransferase 21 U/L (12-78); Albumin Level 4.4 g/dl (3.5-5.0); Albumin/Globulin Ratio 1.4 (1.1-1.8); Alkaline Phosphatase 65 U/L (38-126); Anion Gap 9.9 mEq/L (5-15); Aspartate Amino Transferase 23 U/L (14-36); Bilirubin,Total 0.7 mg/dl (0.2-1.3); Blood Urea Nitrogen 11 mg/dl (7-17); Calcium 9.4 mg/dl (8.4-10.2); Carbon Dioxide 28 mmol/L (22.0-30.0); Chloride 106 mmol/L (98-107); Estimated Glomerular Filt Rate 101 ml/min (>60); GFR (African American) 122 ML/MIN (>60); Globulin 3.1 g/dL (1.3-3.2); Glucose 91 mg/dl (74-100); Potassium 3.9 mmoL/L (3.5-5.1); Sodium 140 mmol/L (136-145); Total Protein,Serum 7.5 g/dl (6.3-8.2)
[2025-04-01 13:29] LABS: 25-OH Vitamin D, Total 45.2 ng/mL (30-100)
[2025-04-01 13:44] LABS: Thyroid Stimulating Hormone 0.93 uIU/mL (0.465-4.68)
[2025-04-02 08:29] LABS: Estradiol 11.5 pg/mL (.); LH 4.7 mIU/mL (.); Progesterone 0.3 ng/mL (.); Testosterone,Total 35 ng/dL (13-71)
== END 2025-04-01 23:59 | disposition home or self-care (01) ==
LOC: LAB 12:03
PROVIDERS: PCP Internal Medicine; Visit Provider Obstetrics & Gynecology
DX: N64.4 Mastodynia (principal); R11.2 Nausea with vomiting, unspecified
CPT/HCPCS: 80053; 82306; 82670; 83001; 83002; 84144; 84403; 84443; 85025

== ENCOUNTER 2025-08-08 14:31 | Emergency (ER) | payer OTHER, SELFPAY ==
[2025-08-08 14:32] VITALS: BP 125/78; PULSE 66; RESP 16; TEMP 37; O2SAT 99; BMI 25.5
--- OUTSIDE RECORDS SUMMARY | 2025-08-08 15:27 | XMS_ITS | Clinical Summary ---
[facility] Address [address] [place] [address] Care Team Providers Care Store Specialist Name Role Phone Provider, No Known Primary Care Provider Unavail able Allergies No known active allergies Medications FeroSul 325 (65 Fe) MG tablet Take 1 tablet by mouth Daily. 02/22/2021 Active Vit-Fe Fumarate-FA ( 27-1) 27-1 MG tablet tablet Take 1 tablet by mouth Daily. Active Active Problems Problem Noted Date Diagnosed Date Short interval between pregn ancies affecting in third trimester, antepartum 05/02/2021 Social History Tobacco Use Types Packs/Day Years Used Date Smoking Tobacco: Never Smokeless Tobacco: Never Tobacco Cessation:Counseling Given: No Alcohol Use Standard Drinks/Week Comments Never 0 (1 standard drink = 0.6 oz pur e alcohol) AUDIT-C Answer Date Recorded Q1: How often do you have a drink containing alc ohol? Never 05/02/2021 Average Number of Drinks Not on file 021 Frequency of Binge Drinking Not on file 04/11 Abuse Screen Answer Date Recorded Unsafe at Home or Work/School Not on file Feels Threatened by Someone? Not on file Does Anyone Keep You from Co ntacting Others or Doint Things Outside the Home? Not on file 08/22/2023 Physical Sign of Abuse Present Not on file 1 Housing Stability Answer Date Recorded Current Living Arrangements Not on file 08/10 Potentially Unsafe Housing Conditions Not on jean marie e 08/22/2023 Family and Community Support Answer Caleb e Recorded Help with Day-to-Day Activities Not on file 08/22/2023 Lonely or Isolated Not on file 08/22/2023 Employment Answer Date Recorded Do you want help finding or keeping work or a linda b? Not on file 08/22/2023 Disabilities Answer Date Recorded Concentrating, Remembering, or Making Decisions Difficulty Not on file 08/22/2023 Doing Errands Independently Difficulty Not on fi le 08/22/2023 Education Answer Date Recorded Help with school or training? Not on file Preferred Language Not on file 08/22/2023 Comments No Sex and Gender Information Value Date Recorded Sex Assigned at Not on file Legal Sex Female 4:03 PM EDT Gender Identity Not on file Sexual Orientation Not on file Last Filed Vital Signs Vital Sign Reading Time Taken Comments Blood Pressure 105/57 05/02/2021 11:51 AM EDT Pulse - - Temperature - - Respiratory Rate - - Oxygen Saturation - - Inhaled Oxygen Concentration - - Weight 93.3 kg (205 lb 9.6 oz) 05/02/2021 11:51 AM EDT Height 170.2 cm (5' 7 ) 05/02/2021 11:58 AM EDT Body Mass Index 32.2 05/02/2021 11:51 AM EDT Plan of Treatment Health Maintenance Due Date Last Done Comments Annual Gynecologic Pelvic an d Breast Exam 1998 TDAP/TD VACCINES (1 - Tdap) 2017 ANNUAL PHYSICAL 05/02/2021 HEPATITIS C SCREENING 05/02/2021 INFLUENZA VACCINE 06/10/2025 Pneumococcal Vaccine 0-49 Aged Out No longer eligible based on patient's age [place] [id number] [facility] PPO Care Teams Store Specialist Relationship Specialty Start Date End Date Provider, [place] [address] PCP - General 04/16/21
[2025-08-08 15:31] VITALS: PULSE 76; RESP 17; O2SAT 98
--- NOTE | 2025-08-08 15:34 | ED_ITS ---
Discharge Plan Disposition Chief Complaint: Skin/Abscess/Foreign Body Prescriptions Prescriptions: No Action prucalopride 2 mg tablet 2 mg PO DAILY Qty: 30 12RF Rx Instructions: Please take 1 tablet p.o. daily omeprazole 40 mg capsule,delayed release(DR/EC) 40 mg PO DAILY Qty: 30 12RF Rx Instructions: Please take 1 capsule p.o. daily Referrals Follow up/Referrals: Quoc Diaz DO [Primary Care Provider, Family Practice] - See instructions Instructions Patient Instructions: DI for Skin Abscess Print Language Print Language: French Discharge ED Provider: Jodi Gaytan Adult HPI General Chief complaint: Skin/Abscess/Foreign Body Stated complaint: WC- accidental needle stick L thumb Time Seen by Provider: 08/08/25 15:27 Mode of Arrival: Ambulatory Source of Information: Patient Description of Symptoms (Recalled from ER Triage Doc. by RN): PT REPORTS ACCIDENTAL NEEDLE STICK TO LEFT THUMB. Related Data Previous Rx's ?Medication ?Instructions ?Recorded omeprazole 40 mg capsule,delayed 40 mg PO DAILY #30 ca ps 05/25/25 release prucalopride 2 mg tablet 2 mg PO DAILY #30 tabs 05/25 Allergies Allergy/AdvReac Type Severity Reaction Status Date / Time No Known Allergies Allergy Verified 05/25/25 08:02 [facility] Disclaimer: The information contained in this section may have been updated after the patient was seen, as this information can be updated by other users. 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 Sensory food aversion Breast tenderness in female Sinusitis Abdominal pain Migraine Lichen sclerosus of vulva Heartburn Abnormal uterine bleeding Pelvic pain Surgical History Hx of tonsillectomy S/P wisdom tooth extraction History of salpingectomy S/P cholecystectomy History of classical section Family History Grandfather Cancer Diabetes Grandmother Diabetes Mother Thyroid disorder Diabetes Social History Smoking Status: Never smoker second hand exposure: Yes alcohol intake: never substance use type: denies use current occupational status: unemployed Travel in the last 8 weeks?: None household members: spouse housing: house current occupational exposures/hazards: Yes caffeine: Yes Have you lived/traveled outside US in past 30 days?: No Contact w/someone who lives/traveled outside US past 30 days?: No Exposure to someone with infectious disease in past 14 days?: No Do you have a fever (greater than 100.4 F or 38 C)?: No Have you tested positive for COVID-19?: No Exposed to someone with COVID-19 in past 14 days?: No Do you have a sore throat?: No Do you have a cough?: No Do you have any weakness?: No Do you have any diarrhea?: No Are you experiencing any unusual bleeding?: No Do you have any muscle aches/pain?: No Do you have any abdominal pain?: No Are you experiencing loss of taste or smell?: No Other 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 Have you received the Flu Vaccine for this season: No Have you received the Pneumonia Vaccine: No Medical Decision Making Medical Records Screening: Per USPSTF and CDC recommendations, given the prevalence of disease in our region, it is our hospital?s policy to screen for HIV and viral Hepatitis for all patients aged 18 and over and those with ongoing risk factors. Vital Signs: 08/08/25 14:32 Temperature 98.6 F Temperature Source Oral Pulse Rate [Radial] 66 Respiratory Rate 16 Blood Pressure [Left Arm] 125/78 Blood Pressure Mean [Left Arm] 93 Blood Pressure Source [Left Arm] Automatic Cuff Blood Pressure Position [Left Arm] Sitting 02 Sat by Pulse Oximetry 99 Oxygen Delivery Method Room Air Orders (Tests/Meds): ORDERS Category Date Time Status Complete Blood Count Auto Diff Stat Lab 08/08/25 14:53 Ordered HBsAg Screen Stat Lab 08/08/25 14:53 Ordered HIV Combo Stat Lab 08/08/25 14:53 Ordered Hep B Surface Ab, Qual Stat Lab 08/08/25 14:53 Ordered Hepatitis C Ab Qual. W/ RFX Stat Lab 08/08/25 14:53 Ordered Liver Panel Stat Lab 08/08/25 14:53 Ordered PT/PTT Stat Lab 08/08/25 14:53 Ordered UDS [Drug Screen,Urine] Stat Lab 08/08/25 15:36 Ordered
--- NOTE | 2025-08-08 15:40 | ED_ITS ---
<Statement entered by Charbel Kothari MD - 08/09/25 10:49> I was consulted by the JOSIANE, and we discussed the complexity of the problems being addressed. I approve the treatment and management plan for this patient's care in the emergency department, thus performing a substantive portion of the medical decision making. Charbel Kothari MD Discharge Plan Disposition Patient Disposition: Home, Self-Care Condition: Good Prescriptions Prescriptions: No Action prucalopride 2 mg tablet 2 mg PO DAILY Qty: 30 12RF Rx Instructions: Please take 1 tablet p.o. daily omeprazole 40 mg capsule,delayed release(DR/EC) 40 mg PO DAILY Qty: 30 12RF Rx Instructions: Please take 1 capsule p.o. daily Referrals Follow up/Referrals: Quoc Diaz DO [Primary Care Provider, [facility]] - See instructions Clinical Impressions Clinical Impression: Needle exposure Qualifiers: Encounter type: initial encounter Qualified Code(s): X58.XXXA - Exposure to other specified factors, initial encounter Print Language Print Language: Belarusian Discharge ED Provider: Charbel Kothari General Adult HPI General Chief complaint: Skin/Abscess/Foreign Body Stated complaint: WC- accidental needle stick L thumb Time Seen by Provider: 08/08/25 15:27 Mode of Arrival: Ambulatory Source of Information: Patient Description of Symptoms (Recalled from ER Triage Doc. by RN): PT REPORTS ACCIDENTAL NEEDLE STICK TO LEFT THUMB. History of Present Illness HPI narrative: 25-year-old female presents to the emergency department with an incidental needlestick to her left thumb, believes it was a dirty needle , patient was wearing a glove, via [facility]. Patient denies any fever chills chest pain shortness of breath, bleeding from the area, denies abdominal pain nausea vomiting constipation diarrhea no urinary symptomology, patient is a non-smoker denies alcohol or drug use, patient is current up-to-date on all of her vaccinations, other past medical history consistent with GERD. Initial triage vitals unremarkable. Please note that above description of symptoms, in this electronic medical record under categorization of recalled from ER triage doctor by RN are ref lective of an initial nursing assessment, however, is not reflective of my full history and physical exam that was personally taken and clarified. Consequentially, this preceding description of symptoms, which may include the patient's categorized chief complaint in the EMR, do not reflect my personal clinical impression, and the ultimate description of history of present illness and patient stated complaints should be deferred to this section of the note. Unless stated otherwise or congruent with this section of the note, additional signs, symptoms, or incongruence should be interpreted as inaccurate with my clinical impression. Onset (ago): hour(s) Related Data Previous Rx's ?Medication ?Instructions ?Recorded omeprazole 40 mg capsule,delayed 40 mg PO DAILY #30 ca ps 05/25/25 release prucalopride 2 mg tablet 2 mg PO DAILY #30 tabs 05/25 Allergies Allergy/AdvReac Type Severity Reaction Status Date / Time No Known Allergies Allergy Verified 05/25/25 08:02 [facility] Disclaimer: The information contained in this section may have been updated after the patient was seen, as this information can be updated by other users. 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 Sensory food aversion Breast tenderness in female Sinusitis Abdominal pain Migraine Lichen sclerosus of vulva Heartburn Abnormal uterine bleeding Pelvic pain Surgical History Hx of tonsillectomy S/P wisdom tooth extraction History of salpingectomy S/P cholecystectomy History of classical section Family History Grandfather Cancer Diabetes Grandmother Diabetes Mother Thyroid disorder Diabetes Social History Smoking Status: Never smoker second hand exposure: Yes alcohol intake: never substance use type: denies use current occupational status: unemployed Travel in the last 8 weeks?: None household members: spouse housing: house current occupational exposures/hazards: Yes caffeine: Yes Have you lived/traveled outside US in past 30 days?: No Contact w/someone who lives/traveled outside US past 30 days?: No Exposure to someone with infectious disease in past 14 days?: No Do you have a fever (greater than 100.4 F or 38 C)?: No Have you tested positive for COVID-19?: No Exposed to someone with COVID-19 in past 14 days?: No Do you have a sore throat?: No Do you have a cough?: No Do you have any weakness?: No Do you have any diarrhea?: No Are you experiencing any unusual bleeding?: No Do you have any muscle aches/pain?: No Do you have any abdominal pain?: No Are you experiencing loss of taste or smell?: No Other 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 Have you received the Flu Vaccine for this season: No Have you received the Pneumonia Vaccine: No ROS Obtained: Yes All systems reviewed & no additional complaints except as documented Physical Exam General General appearance: alert and in no apparent distress Head Head exam: atraumatic and normocephalic Eye Eye exam: Present PERRL and EOMI ENT ENT exam: Present mucous membranes moist Neck Neck exam: Present normal inspection Chest Chest inspection: Present normal inspection and symmetric chest wall rise Respiratory Respiratory exam: Present normal lung sounds bilaterally; Absent respiratory distress Cardiovascular Cardiovascular exam: Present regular rate and normal rhythm Abdominal Exam Abdominal exam: Present soft; Absent tenderness Extremities Exam Extremities exam: Present normal inspection Neurological Exam Neurological exam: Present alert and oriented X3 Psychiatric Psychiatric exam: Present normal affect Skin Skin exam: Present warm, dry and other (Small puncture wound to the left medial thumb) Medical Decision Making Medical Records Medical records reviewed: Yes I reviewed the patient's medical records. Screening: Per USPSTF and CDC recommendations, given the prevalence of disease in our region, it is our hospital?s policy to screen for HIV and viral Hepatitis for a ll patients aged 18 and over and those with ongoing risk factors. Julio Inquiry Pt receiving controlled substance: No Julio was queried for this patient: No Vital Signs: 08/08/25 14:32 08/08/25 15:31 Temperature 98.6 F Temperature Source Oral Pulse Rate 76 Pulse Rate [Radial] 66 Respiratory Rate 16 17 Blood Pressure [Left Arm] 125/78 Blood Pressure Mean [Left Arm] 93 Blood Pressure Source [Left Arm] Automatic Cuff Blood Pressure Position [Left Arm] Sitting 02 Sat by Pulse Oximetry 99 98 Oxygen Delivery Method Room Air Room Air Orders (Tests/Meds): ORDERS Category Date Time Status Complete Blood Count Auto Diff Stat Lab 08/08/25 15:27 Received HBsAg Screen Stat Lab 08/08/25 15:27 Received HIV Combo Stat Lab 08/08/25 15:27 Received Hep B Surface Ab, Qual Stat Lab 08/08/25 15:27 Received Hepatitis C Ab Qual. W/ RFX Stat Lab 08/08/25 15:27 Received Liver Panel Stat Lab 08/08/25 15:27 Received PT/PTT Stat Lab 08/08/25 15:27 Received UDS [Drug Screen,Urine] Stat Lab 08/08/25 15:36 Ordered Medical Decision Narrative: 25-year-old female presents to the emergency department as an accidental needlestick to the left thumb, was well-appearing, differential diagnosis to include but not limited to, remission of disease, infection, postexposure proph ylaxis among others I discussed this patient's case with the attending physician Dr. Anaya Post prophylaxis/accidental needlestick protocol was placed. Will obtain CBC UDS HBsAg screen, hepatitis B, hepatitis C antibody screening HIV combo, liver panel and coags. Patient has uncomplicated puncture wound, no active hematemesis, wound was clean, dry, patient like to be discharged home to self-care prior to full results of her laboratory studies/postexposure prophylaxis protocol, upon chart review and patient history patient states she is fully vaccinated and currently is not worried about any post exposure prophylaxis, she has had previous postexposure prophylaxis as well as exposure in 2023, in March, records reviewed, all vaccinations up-to-date, reactive hepatitis B antibody, patient was given strict ED return precautions, will call patient with results of her postexposure laboratory results if actionable. Patient voiced understanding and agreement with the current treatment plan/discharge plan. Critical Care Critical Care Time Critical Care Time: No
[2025-08-08 16:03] VITALS: BP 125/78; PULSE 79; RESP 17; TEMP 37.1; O2SAT 99
[2025-08-08 16:05] LABS: Activated Partial Thrombo Time 27.4 seconds (22.8-30.6); INR 0.98 (0.9-1.1); Prothrombin Time 10.9 seconds (10.1-12.5)
[2025-08-08 16:11] LABS: Hematocrit 42.3 % (37.0-47.0); Hemoglobin 13.6 g/dL (12.2-16.2); Immature Granulocytes % 0.1 %; Mean Corpuscular HGB Conc 32.2 g/dL (31.8-35.4); Mean Corpuscular Hemoglobin 27.6 pg (27.0-31.2); Mean Corpuscular Volume 86.0 fl (81-99); Nucleated Red Blood Cells % 0 %; Platelet Count 276 K/mm3 (142-424); Red Blood Count 4.92 M/mm3 (4.20-5.40); Red Cell Distribution Width-SD 38.9 fL; White Blood Count 7.1 K/mm3 (4.8-10.8)
[2025-08-08 16:18] LABS: COC Drug Screen Collection Only
[2025-08-08 16:55] LABS: Alanine Aminotransferase 17 U/L (12-78); Albumin Level 4.4 g/dl (3.5-5.0); Alkaline Phosphatase 71 U/L (38-126); Aspartate Amino Transferase 37 U/L (14-36); Bilirubin,Direct 0.4 mg/dl (0.0-0.4); Bilirubin,Indirect 0.4 mg/dL (0.0-0.9); Bilirubin,Total 0.8 mg/dl (0.2-1.3); Bilirubin,Unconjugated 0.4 mg/dL (0.0-1.1); Total Protein,Serum 7.5 g/dl (6.3-8.2)
[2025-08-08 19:14] LABS: Hepatitis C Ab Qual. W/ RFX NEGATIVE (Negative)
[2025-08-09 08:23] LABS: Hep B Surface Ab, Qual Non Reactive (.); Hepatitis B Surface Antigen Negative (Negative)
== END 2025-08-08 16:04 | disposition home or self-care (01) ==
PROVIDERS: Physician Assistant; Student in an Organized Health Care Education/Training Program; Emergency Provider Student in an Organized Health Care Education/Training Program; PCP Internal Medicine
DX: S61.032A Puncture wound without foreign body of left thumb without damage to nail, initial encounter (principal); W46.1XXA Contact with contaminated hypodermic needle, initial encounter
CPT/HCPCS: 80076; 85025; 85610; 85730; 86706; 86803; 87340; 87389; 99283